=== PATIENT | female | born 1935 | race Caucasian/White ===

== ENCOUNTER 2018-06-14 17:45 | Inpatient (IN) | payer MEDICARE, OTHER ==
[~2018-06-14] VITALS: Ht 152.4 cm; Wt 75.3 kg
[~2018-06-14 17:45] MED LIST: ALPR0.5T6 PO; AMLO10TA2 PO; APIX2.5T PO; BILB80CA PO; CARV12.52 PO; CIDE300T PO; CRAN1TAB6 PO; DABI150C PO; FERR325T14 PO; HYDR25TA9 PO; LISI-334 PO; OMEG1CAP6 PO; UBID100C PO; XOPENEX1.25 MG/3 IH; [UNRECOGNIZED DRUG - CODE] MC
--- NOTE | 2018-06-14 17:50 | ED.ADGEN ---
Past History Past Medical History: Anxiety, CVA, Heart Disease, Stroke, Uterine Fibroids Past Surgical History: Cholecystectomy, Other Smoking: Non-smoker Alcohol Use: None Drug Use: None Adult General Chief Complaint Chief Complaint ". .. My abdomen been hurting... Feels like gas... I did have a stool..yesterday...but mainly only gas... I did get a suppository... but has not worked yet....".. " I had a colon exam 1 and 1/2 yrs ago and everything was fine..." [facility] HPI Patient is a 83 year old female who presents with complaints of generalized abdomen pain, distention, gas,. Mild nausea. Patient seen in clinic today and a rectal suppository was placed. Patient states she is constipated for her since she has not stooled normally the last 2 days. Patient states she normally has a stool every day. Patient has had multiple abdomen surgeries including cholecystectomy, pelvic surgeries( possible hysterectomy). Patient denies any intake bad food. Patient has not eaten full meal since yesterday. Has had a small meals today. No recent travel. No specific ill contacts. No history immunosuppression. No change in meds. No history of trauma. Patient normally follows with Dr. Davis. Review of Systems Review of Systems Constitutional: Denies fever or chills [] Eyes: Denies change in visual acuity, redness, or eye pain [] HENT: Denies nasal congestion or sore throat [] Respiratory: Denies cough or shortness of breath [] Cardiovascular: No additional information not addressed in [facility] [] GI: Complaints of abdominal pain, nausea, and constipation. Denies Vomiting, bloody stools or diarrhea [] : Denies dysuria or hematuria [] Musculoskeletal: Denies back pain or joint pain [] Integument: Denies rash or skin lesions [] Neurologic: Denies headache, focal weakness or sensory changes [] Endocrine: Denies polyuria or polydipsia [] All other systems were reviewed and found to be within normal limits, except as documented in this note. Family History Family History Noncontributory Current Medications Current Medications Current Medications Medications (Trade) Dose Ordered Sig/Cici Start Time Stop Time Status Last Admin Dose Admin Famotidine (Pepcid Vial) 20 mg 1X ONCE 06/14/18 18:15 06/14/18 18:16 DC 06/14/18 18:53 20 MG Info (Do NOT chart on this entry -- for MONITORING) 1 each PRN DAILY PRN 06/14/18 18:45 06/16/18 18:44 Iohexol (Omnipaque 240 Mg/ml) 30 ml 1X ONCE 06/14/18 18:30 06/14/18 18:31 DC 06/14/18 19:40 30 ML Iohexol (Omnipaque 300 Mg/ml) 75 ml 1X ONCE 06/14/18 18:30 06/14/18 18:31 DC 06/14/18 19:41 75 ML Ketorolac Tromethamine (Toradol) 15 mg 1X ONCE 06/14/18 20:45 06/14/18 20:46 DC 06/14/18 20:52 15 MG Lactated Ringer's 1,000 ml @ 1,000 mls/hr Q1H 06/14/18 17:58 06/14/18 18:57 DC 06/14/18 18:52 1,000 MLS/HR Levofloxacin (Levaquin) 500 mg 1X ONCE 06/14/18 20:30 06/14/18 20:31 UNV Levofloxacin/ Dextrose 100 ml @ 100 mls/hr 1X ONCE 06/14/18 20:45 06/14/18 21:44 DC 06/14/18 20:54 100 MLS/HR Magnesium Hydroxide (Milk Of Magnesia) 2,400 mg 1X ONCE 06/14/18 18:15 06/14/18 18:16 DC 06/14/18 18:55 2,400 MG Magnesium Citrate (Citroma) 296 ml 1X ONCE 06/14/18 20:45 06/14/18 20:46 DC 06/14/18 20:44 296 ML Ondansetron HCl (Zofran) 8 mg 1X ONCE 06/14/18 18:15 06/14/18 18:16 DC 06/14/18 18:48 8 MG See nursing for home meds Allergies Allergies Allergies Coded Allergies Type Severity Reaction Last Updated Verified Penicillins Allergy Intermediate Rash 12/11/14 Yes albuterol Allergy Intermediate Swelling 12/11/14 Yes ampicillin Allergy Intermediate Itching 12/11/14 Yes cetirizine Allergy Intermediate 12/11/14 Yes codeine Allergy Intermediate 12/11/14 Yes diphenhydramine HCl Allergy Intermediate Unknown 12/11/14 Yes erythromycin base Allergy Intermediate Rash 12/11/14 Yes tetracycline Allergy Intermediate Rash 12/11/14 Yes rivaroxaban Allergy Unknown 12/15/15 Yes acetaminophen Adverse Reaction Intermediate Nausea and Vomiting 12/10/14 Yes azithromycin Adverse Reaction Intermediate Diarrhea 12/10/14 Yes Physical Exam Physical Exam Constitutional: Mild to moderate distress, non-toxic appearance. [] HENT: Normocephalic, atraumatic, bilateral external ears normal, oropharynx moist, no oral exudates, nose normal. [] Eyes: PERRLA, EOMI, conjunctiva normal, no discharge. [] Neck: Normal range of motion, no tenderness, supple, no stridor. [] Cardiovascular:Tachycardia Heart rate, ill regular rhythm, no murmur, PMI to the left Lungs & Thorax: Bilateral breath sounds equal at apexes auscultation [] Abdomen: Bowel sounds decreased,, soft, generalized abdomen tenderness, no masses, no pulsatile masses. Multiple old surgery scars. Very Distended. Tympanic. Skin: Warm, dry, no erythema, no rash. Poor turgor Back: No tenderness, no CVA tenderness. [] Extremities: No tenderness, no cyanosis, no clubbing, ROM intact, no edema. [] Arthritic changes. Left lower leg weakness residual from old stroke. Neurologic: Alert and oriented X 3, no change in baseline motor and sensory function, no focal deficits noted. [] Psychologic: Affect anxious, judgement normal, mood normal. [] Current Patient Data Vital Signs Vital Signs Date Time Temp Pulse Resp B/P (MAP) Pulse Ox O2 Delivery O2 Flow Rate FiO2 06/14/18 20:05 80 16 168/90 (116) 97 Room Air 06/14/18 17:58 97.9 Lab Results Laboratory Tests Test 06/14/18 18:14 06/14/18 18:44 White Blood Count 9.7 x10^3/uL (4.0-11.0) Red Blood Count 4.99 x10^6/uL (3.50-5.40) Hemoglobin 15.6 g/dL (12.0-15.5) H Hematocrit 46.5 % (36.0-47.0) Mean Corpuscular Volume 93 fL (79-100) Mean Corpuscular Hemoglobin 31 pg (25-35) Mean Corpuscular Hemoglobin Concent 34 g/dL (31-37) Red Cell Distribution Width 13.7 % (11.5-14.5) Platelet Count 246 x10^3/uL (140-400) Neutrophils (%) (Auto) 79 % (31-73) H Lymphocytes (%) (Auto) 11 % (24-48) L Monocytes (%) (Auto) 8 % (0-9) Eosinophils (%) (Auto) 1 % (0-3) Basophils (%) (Auto) 1 % (0-3) Neutrophils # (Auto) 7.6 x10^3uL (1.8-7.7) Lymphocytes # (Auto) 1.1 x10^3/uL (1.0-4.8) Monocytes # (Auto) 0.7 x10^3/uL (0.0-1.1) Eosinophils # (Auto) 0.1 x10^3/uL (0.0-0.7) Basophils # (Auto) 0.1 x10^3/uL (0.0-0.2) Prothrombin Time 12.1 SEC (9.4-11.4) H Prothrombin Time INR 1.2 (0.9-1.1) H PTT 30 SEC (23-33) Sodium Level 139 mmol/L (136-145) Potassium Level 3.3 mmol/L (3.5-5.1) L Chloride Level 102 mmol/L (98-107) Carbon Dioxide Level 27 mmol/L (21-32) Anion Gap 10 (6-14) Blood Urea Nitrogen 14 mg/dL (7-20) Creatinine 0.8 mg/dL (0.6-1.0) Estimated GFR (Cockcroft-Gault) 68.2 Glucose Level 138 mg/dL (70-99) H Calcium Level 8.9 mg/dL (8.5-10.1) Total Bilirubin 0.8 mg/dL (0.2-1.0) Direct Bilirubin 0.3 mg/dL (0.0-0.2) H Aspartate Amino Transferase (AST) 19 U/L (15-37) Alanine Aminotransferase (ALT) 17 U/L (14-59) Alkaline Phosphatase 106 U/L (46-116) Creatine Kinase 35 U/L (26-192) Creatine Kinase MB (Mass) 0.9 ng/mL (0.0-3.6) Creatine Kinase MB Relative Index 2.6 % (0-4) Troponin I Quantitative < 0.017 ng/mL (0-0.055) Total Protein 7.3 g/dL (6.4-8.2) Albumin 3.3 g/dL (3.4-5.0) L Amylase Level 44 U/L (25-115) Lipase 76 U/L (73-393) Urine Collection Type Unknown Urine Color Yellow Urine Clarity Hazy Urine pH 5.5 Urine Specific [place] 1.025 Urine Protein 100 mg/dl (NEG-TRACE) Urine Glucose (UA) Neg mg/dL (NEG) Urine Ketones (Stick) 40 mg/dL (NEG) Urine Blood Trace (NEG) Urine Nitrite Neg (NEG) Urine Bilirubin Neg (NEG) Urine Urobilinogen Dipstick 1 mg/dL (0.2 mg/dL) Urine Leukocyte Esterase Neg (NEG) Urine RBC Occ /HPF (0-2) Urine WBC 5-10 /HPF (0-4) Urine Squamous Epithelial Cells Mod /LPF Urine Bacteria Few /HPF (0-FEW) Urine Hyaline Casts Mod /HPF Urine Mucus Marked /LPF EKG EKG My interpretation of EKG shows a ventricular rate 98. []Does have occasional atrial premature complex. Some nonspecific anterior septal changes. But no findings of acute STEMI with contralateral changes. There is some artifact noted. Appears as if Afib. Radiology/Procedures Radiology/Procedures My interpretation of abdomen film shows no marked acute cardiopulmonary changes. Cardiomegaly. Clips. Degenerative joint changes. There is no free air under diaphragm. Abdomen portion the film shows markedly dilated bowel with gas. Does have distal stool. Previous surgical clips. Degenerative joint changes of spine.[] CT abdomen shows dilated: With dilation of cecum up to 8.4 cm. There is some air -fluid levels. The small bowel was not significantly dilated. No obvious findings of appendicitis. Degenerative joint changes. See formal report when available. Course & Med Decision Making Course & Med Decision Making Pertinent Labs and Imaging studies reviewed. (See chart for details) Patient be admitted to for further eval and observation. Will start Levaquin. Possible early ileus. [] Final Impression Final Impression 1. Abdomen pain[] 2. Flank pain 3. Constipation 4. Weaknes 5. Hypokalemia 3.3 6. DM 7. Dehydration 8. UTI 9. Possible ileus 10. Leukocytosis 15.6 11. Afib. Dragon Disclaimer Dragon Disclaimer This electronic medical record was generated, in whole or in part, using a voice recognition dictation system. SHANE RAYMUNDO MD Jun 14, 2018 17:50
[2018-06-14] MEDS ORDERED: IV RINGERS SOLUTION,LACTATED 1,000 ML IV SCH (17:58)
[2018-06-14] MEDS ORDERED: ONDANSETRON PF 4 MG/2 ML VIAL. IV ONE (18:15)
[2018-06-14] MEDS ORDERED: FAMOTIDINE 20 MG/2 ML VIAL IVP ONE (18:15)
[2018-06-14] MEDS ORDERED: MAGNESIUM HYDROXIDE 2,400 MG/30 ML ORAL.SUSP. PO ONE (18:15)
[2018-06-14] MEDS ORDERED: IOHEXOL 240 MG/ML 50ML VIAL. PO ONE (18:30)
[2018-06-14] MEDS ORDERED: IOHEXOL 300 MG/ML 75 ML VIAL. IV ONE (18:30)
[2018-06-14 18:39] LABS: BASO # 0.1 x10^3/uL (0.0-0.2); BASO % 1 % (0-3); EOS # 0.1 x10^3/uL (0.0-0.7); EOS % 1 % (0-3); HEMATOCRIT 46.5 % (36.0-47.0); HEMOGLOBIN 15.6 g/dL (12.0-15.5); LYMPH # 1.1 x10^3/uL (1.0-4.8); LYMPH % 11 % (24-48); MEAN CORPUSCULAR HEMOGLOBIN 31 pg (25-35); MEAN CORPUSCULAR HGB CONC 34 g/dL (31-37); MEAN CORPUSCULAR VOLUME 93 fL (79-100); MONO # 0.7 x10^3/uL (0.0-1.1); MONO % 8 % (0-9); NEUT # 7.6 x10^3uL (1.8-7.7); NEUT % 79 % (31-73); PLATELET COUNT 246 x10^3/uL (140-400); RED BLOOD COUNT 4.99 x10^6/uL (3.50-5.40); RED CELL DISTRIBUTION WIDTH 13.7 % (11.5-14.5); WHITE BLOOD COUNT 9.7 x10^3/uL (4.0-11.0)
[2018-06-14] MEDS ORDERED: CONTRAST GIVEN MC PRN (18:45)
--- NOTE | 2018-06-14 19:07 | EKG ---
[address] [address] Test Date: 2018-06-14 Test Time: 19:01:43 Pat Name: WARREN HDEZ Department: Room: Gender: F [employer] Supervisor: : [id number] Requested By: SHANE RAYMUNDO Order Number: [id number] Reading MD: Measurements Intervals [place] Rate: 98 P: 0 KS: 210 QRS: 10 QRSD: 96 T: 40 QT: 362 QTc: 464 Interpretive Statements SINUS RHYTHM ATRIAL PREMATURE COMPLEX(ES) PROLONGED [place] INTERVAL R-S TRANSITION ZONE IN V LEADS DISPLACED TO THE LEFT QRS(T) CONTOUR ABNORMALITY CONSIDER ANTEROSEPTAL MYOCARDIAL DAMAGE ABNORMAL ECG RI6.01 Unconfirmed report No previous ECG available for comparison
[2018-06-14 19:19] LABS: BACTERIA,URINE FEW /HPF (0-FEW); BILIRUBIN,URINE NEG (NEG); CLARITY,URINE HAZY; COLOR,URINE YELLOW; GLUCOSE,URINE NEG (NEG); HYALINE CASTS, URINE MOD /HPF; NITRITE,URINE NEG (NEG); RBC,URINE OCC /HPF (0-2); SQUAMOUS EPITHELIAL CELL,UR MOD /LPF; UROBILINOGEN,URINE 1 mg/dL (0.2 mg/dL)
[2018-06-14 19:22] LABS: ALBUMIN 3.3 g/dL (3.4-5.0); CALCIUM 8.9 mg/dL (8.5-10.1); CREATININE 0.8 mg/dL (0.6-1.0); DIRECT BILIRUBIN 0.3 mg/dL (0.0-0.2); GFR 68.2; POTASSIUM 3.3 mmol/L (3.5-5.1); TOTAL BILIRUBIN 0.8 mg/dL (0.2-1.0); TOTAL PROTEIN 7.3 g/dL (6.4-8.2)
--- NOTE | 2018-06-14 20:17 | RAD ---
CT abdomen and pelvis with contrast History: Severe lower abdominal pain, constipation, loss of appetite> Technique: After the administration of intravenous contrast, CT imaging was performed of the abdomen and pelvis. No oral contrast was given as per request. Multiplanar images are reviewed. Exposure: One or more of the following individualized dose reduction techniques were utilized for this examination: 1. Automated exposure control 2. Adjustment of the mA and/or kV according to patient size 3. Use of iterative reconstruction technique. Contrast: 75 cc Omnipaque 300 Comparison: None Findings: Heart is enlarged. There is no pleural fluid. No focal abnormality is identified of the pancreas, liver, spleen. Gallbladder is absent. Both kidneys enhance without hydronephrosis. There is atherosclerotic calcification abdominal aorta. Incidental note is made of retroaortic left renal vein. There is no adrenal nodularity. Accurate evaluation of bowel is limited without oral contrast. There is some dilatation of the colon most notable of the cecum up to 8.4 cm in caliber, some air-fluid levels present in the colon. There is more focal internal density of the more normal caliber distal sigmoid colon. Appendix is not clearly identified if still present. Small bowel is not significantly dilated. There is no free air. There is no significant free fluid. There is multilevel lumbar facet hypertrophic change and degenerative disc disease. There is grade 1 anterior spondylolisthesis L4-5. Impression: 1. There is colonic dilatation most notable of the cecum, some relative transition of the caliber at the level of the sigmoid colon at which there is some internal density. Internal mass would be difficult to exclude by this exam although findings could be due to stool. Colonoscopy may be beneficial if this has not been performed. Electronically signed by: Blake Hdz MD (06/14/2018 8:14 PM) [facility]
[2018-06-14] MEDS ORDERED: levoFLOXacin 500 MG TABLET PO ONE (20:30)
[2018-06-14] MEDS ORDERED: LEVO500T59 PO (20:31)
[2018-06-14] MEDS ORDERED: KETOROLAC 15 MG/ML VIAL. IV ONE (20:45)
[2018-06-14] MEDS ORDERED: MAGNESIUM CITRATE 296 ML SOLUTION. PO ONE (20:45)
[2018-06-14] MEDS ORDERED: ONDANSETRON PF 4 MG/2 ML VIAL. IV PRN (22:00)
[2018-06-14] MEDS ORDERED: POTASSIUM CHLORIDE 20 MEQ/15 ML ORAL LIQUID. PO ONE (22:15)
[2018-06-14] MEDS ORDERED: SODIUM PHOSPHATES 19/7GM 133 ML ENEMA. PR ONE (22:15)
[2018-06-14 23:07] VITALS: BP 157/96
[2018-06-14] MEDS ORDERED: POTA20TA4 PO (23:52)
[2018-06-14] MEDS ORDERED: CARV25TA2 PO (23:52)
[2018-06-14] MEDS ORDERED: APIX5TAB3 PO (23:52)
[2018-06-14] MEDS ORDERED: AMLO2.5T PO (23:52)
[2018-06-15] MEDS ORDERED: KETOROLAC 15 MG/ML VIAL. IV PRN (00:30)
[2018-06-15] MEDS ORDERED: PROCHLORPERAZINE 10 MG/2 ML VIAL. IV PRN (00:30)
[2018-06-15 05:01] VITALS: BP 136/76
[2018-06-15 06:04] LABS: BASO # 0.1 x10^3/uL (0.0-0.2); BASO % 1 % (0-3); EOS % 0 % (0-3); HEMATOCRIT 43.3 % (36.0-47.0); HEMOGLOBIN 14.6 g/dL (12.0-15.5); LYMPH % 10 % (24-48); MEAN CORPUSCULAR HEMOGLOBIN 32 pg (25-35); MEAN CORPUSCULAR HGB CONC 34 g/dL (31-37); MEAN CORPUSCULAR VOLUME 93 fL (79-100); MONO % 9 % (0-9); NEUT # 8.5 x10^3uL (1.8-7.7); NEUT % 80 % (31-73); PLATELET COUNT 229 x10^3/uL (140-400); RED BLOOD COUNT 4.65 x10^6/uL (3.50-5.40); RED CELL DISTRIBUTION WIDTH 13.4 % (11.5-14.5); WHITE BLOOD COUNT 10.5 x10^3/uL (4.0-11.0)
[2018-06-15 06:14] LABS: CALCIUM 8.6 mg/dL (8.5-10.1); CREATININE 0.7 mg/dL (0.6-1.0); GFR 79.5
[2018-06-15 06:16] LABS: POTASSIUM 2.8 mmol/L (3.5-5.1)
[2018-06-15] MEDS ORDERED: POTASSIUM CL 40MEQ IN D5W 1,000 ML IV SCH (07:15)
[2018-06-15] MEDS ORDERED: IV RINGERS SOLUTION,LACTATED 1,000 ML IV SCH (09:00)
[2018-06-15] MEDS ORDERED: levoFLOXacin 250 MG TABLET PO SCH ×2 (09:00→20:00)
[2018-06-15 11:34] VITALS: BP 150/90
--- NOTE | 2018-06-15 13:06 | SSS ---
ADMIT DATE: 06/15/2018 HISTORY OF PRESENT ILLNESS: The patient is an 83-year-old female patient, who apparently came to the Emergency Room complaining of abdominal pain. Apparently, she has not had any bowel movement since last Thursday. She continued to have nausea and dry heaves. She did have small bowel movement this morning, but continued to have severe abdominal pain. CT scan of the abdomen and pelvis showed that there is colonic dilatation, most notable of the cecum with some relative transition of caliber at the level of the sigmoid colon at which there is some internal density and tenderness will be difficult to exclude by this exam, although the finding could be due to stool. Colonoscopy may be beneficial if this has not been done, given that she has multiple surgeries before and possible adhesion versus tumor. I decided to transfer her to [facility] to consult the surgical team as well as the assembly worker. PAST MEDICAL HISTORY: Significant for hypertension, atrial fibrillation. She also is known to have osteoarthritis as well as hyperlipidemia and right middle cerebral artery territory infarct with left side hemiplegia about 15 years ago. She mostly in a power chair, although she uses walker to transfer. PAST SURGICAL HISTORY: Significant for total abdominal hysterectomy, bilateral salpingo-oophorectomy, cholecystectomy, bilateral cataract extraction, colonoscopy, esophagogastroduodenoscopy. She has also had . ALLERGIES: She is allergic to PENICILLIN, ACETAMINOPHEN, ALBUTEROL, AMPICILLIN, AZITHROMYCIN, CETIRIZINE, CODEINE, and DIPHENHYDRAMINE. MEDICATIONS: She is currently on following medications: She is on Xopenex 1.25 mg twice a day, apixaban 5 mg twice a day, omega-3 fatty acid 1000 mg p.o. daily, carvedilol 25 mg twice a day, amlodipine besylate 2.5 mg daily, lisinopril 20 mg twice a day, alprazolam 0.5 mg at bedtime. She is on potassium chloride 20 mEq daily. She is Bilberry fruit extract 80 mg once a day, cider vinegar 300 mg p.o. daily, cranberry concentrate 3 tablets daily. She is on Coenzyme Q10 100 mg daily. She is on Avocado oil 1 mL daily. FAMILY HISTORY: She has 3 brothers and 5 sisters. Older brother of myocardial infarction and CVA and 4 sisters, all of them with complication of diabetes, coronary artery disease and cerebrovascular accident. She has 1 older sister that is alive at age of 90 and one younger brother at the age of 77 is still alive. Her mother at age of 84 because of pneumonia and CVA. Her father committed suicide when he was 52 years old. SOCIAL HISTORY: She is , lives with her son. One of her sons of diabetes and aneurysm. She never smoked, does not drink alcohol. She worked with for 25 years. REVIEW OF SYSTEMS: The patient has bilateral cataract extraction, but denied any glaucoma or macular degeneration. Denied any earache, tinnitus or sensorineural deafness. Denied any nosebleeds, stuffy nose or postnasal drip. Denied any sore throat, sore tongue, toothache, hoarseness of voice or difficulty swallowing. She has recurrent bouts of nausea, vomiting and dry hives. She has been having constipation and cramping abdominal pain. Denied any dysuria, frequency, hematuria. Denied any chest pain, shortness of breath, orthopnea, paroxysmal nocturnal dyspnea. Denied any cough, phlegm or hemoptysis. PHYSICAL EXAMINATION: GENERAL: When I examined her, she was resting, slightly propped up in bed, in no apparent respiratory distress. She was pale, but no jaundice, cyanosis, or thyromegaly. No jugular venous distension. No limb edema. VITAL SIGNS: Her heart rate was 89, blood pressure was 136/76, temperature was 98.2, respiratory rate was 22 and oxygen saturation was 94%. HEAD, EYES, EARS, NOSE AND THROAT: Showed normocephalic, atraumatic. NECK: Supple. HEART: Showed normal first and second heart sounds with no gallop, rub or murmur. CHEST: Clear to auscultation. No crepitation or rhonchi. ABDOMEN: Distended, soft. There is no tenderness. No guarding or rigidity. However, bowel sounds are sluggish. NEUROLOGIC: She is awake, alert, responding appropriately. All cranial nerves intact. EXTREMITIES: She moves her extremities without difficulty, although she has left-sided hemiplegia. She is able to use a walker, but she is mostly in a power chair. LABORATORY DATA: On admission showed a white cell count of 10,500, hemoglobin 14.6, hematocrit 43, MCV 93, and platelet count of 229,000. Her chemistry showed serum sodium 139, potassium 3.3, chloride 102, bicarbonate 27, anion gap of 10, BUN 14, creatinine 0.8, estimated GFR was 68 mL per minute. Her glucose was 138, calcium was 8.9. Total bilirubin, AST, ALT, alkaline phosphatase were normal. Total protein was 7.3, albumin 3.3. Amylase and lipase were normal. Her prothrombin time was 12.1, INR 1.2, APTT was 30. Urinalysis was essentially unremarkable. The urine was yellow, hazy with a pH of 5.5, specific gravity of 1.025. There is large amount of protein, negative for glucose, trace of ketones, trace of blood, negative for nitrite and leukocyte esterase. There was occasional rbc's, 5-10 wbc's, no bacteria. The CT scan of the abdomen and pelvis showed that heart is enlarged. There is no pleural effusion, no focal abnormality is identified. The pancreas, liver, spleen; the gallbladder is absent. Both kidneys enhance without hydronephrosis. There is atherosclerotic calcification of abdominal aorta. Incidental note is made of aortic left renal vein. There is no adrenal nodularity. Accurate evaluation of bowel is limited without oral contrast. There is some dilatation of the colon, most notable in the cecum up to 8.4 cm in caliber, some air fluid levels present in the colon. There is more focal internal density with more normal caliber distal sigmoid colon. Appendix is not clearly identifiable. Small bowel is not significantly dilated. There is no free air. There is no significant free fluid. There is multilevel lumbar facet hypertrophic changes and degenerative disk disease. There is grade 1 anterior spondylolisthesis of L4-L5. Given that the patient continues to have abdominal pain and marked dilatation of the cecum, possible transition of the caliber at the level of the sigmoid colon. I decided to transfer the patient to [facility] today to consult the surgical team as well as the assembly worker. The patient seems to be somewhat short of breath and had difficulty finishing her sentence. By the time we decided to transfer her serum sodium was 140, potassium 2.8, chloride 103, bicarbonate 29, anion gap of 8, BUN 13, creatinine 0.7, estimated GFR was 80 mL per minute. Her glucose 105, calcium was 8.5. We will continue to replenish her potassium. I will repeat her labs by the time she arrives to [facility] and keep her n.p.o. for the time being. KENTRELL SHAFFER MD DR: Kassie JOB#: [id number] / [id number]
[2018-06-15] MEDS ORDERED: LACTOBACILLUS RHAMNOSUS GG 1 CAPSULE. PO SCH (21:00)
--- NOTE | 2018-06-16 16:18 | RAD ---
INDICATION: Abdominal pain, nausea, vomiting and constipation. TECHNIQUE: Abdominal series with PA chest radiograph was obtained. Comparison chest radiograph is from December 15, 2015. FINDINGS: The lungs are clear. There is mild elevation of the right hemidiaphragm. Heart is enlarged. Pulmonary vasculature is mildly cephalized. There is no free air. Colon is dilated, transverse colon measures about 10 cm in diameter. There also appear to be a few mildly dilated small bowel loops. No obvious transition in caliber is apparent. There are clips in the right upper quadrant. There are calcified phleboliths. There are degenerative changes in the spine. IMPRESSION: Distention of small bowel and colon without obvious transition, ileus versus large bowel obstruction are the differential considerations. Recent CT noted a caliber change in the sigmoid colon, not appreciable on the current radiographs although given appearance on CT and given large bowel dilation on the current exam, colonoscopy to exclude neoplasm may be of benefit. Electronically signed by: Deonte Banks MD (06/15/2018 9:02 AM) [id number]
== END 2018-06-15 12:30 | disposition short-term general hospital (02) | DRG 394 ==
LOC: ER 17:45 → 1 SOUTH 21:00
PROVIDERS: ADMIT Internal Medicine; ATTEND Internal Medicine
DX: K59.39 Other megacolon (principal); G81.94 Hemiplegia, unspecified affecting left nondominant side; N39.0 Urinary tract infection, site not specified; E78.5 Hyperlipidemia, unspecified; I10 Essential (primary) hypertension; I48.91 Unspecified atrial fibrillation; K59.00 Constipation, unspecified; Z82.3 Family history of stroke; F41.9 Anxiety disorder, unspecified; M43.16 Spondylolisthesis, lumbar region; E87.6 Hypokalemia; E86.0 Dehydration; D72.829 Elevated white blood cell count, unspecified; M19.90 Unspecified osteoarthritis, unspecified site; Z82.49 Family history of ischemic heart disease and other diseases of the circulatory system; Z86.73 Personal history of transient ischemic attack (TIA), and cerebral infarction without residual deficits; Z83.3 Family history of diabetes mellitus; Z90.710 Acquired absence of both cervix and uterus; Z98.41 Cataract extraction status, right eye; Z98.42 Cataract extraction status, left eye; Z88.6 Allergy status to analgesic agent; Z88.1 Allergy status to other antibiotic agents; Z88.0 Allergy status to penicillin; Z88.2 Allergy status to sulfonamides; Z88.8 Allergy status to other drugs, medicaments and biological substances; Z90.722 Acquired absence of ovaries, bilateral
CPT/HCPCS: 36415; 74022; 74177; 80048; 80076; 81001; 82150; 82553; 83690; 84484; 85025; 85610; 85730; 87086; 87641; 93005; 96361; 96374; 96375; J0780; J1885; J1956; J2405; J7120; Q9966; Q9967; S0028; 99285-25

== ENCOUNTER 2018-06-24 14:50 | Inpatient (IN) | payer MEDICARE, OTHER ==
[~2018-06-24] VITALS: Ht 152.4 cm; Wt 65.5 kg
[~2018-06-24 14:50] MED LIST changes: +AMLO2.5T PO; +APIX5TAB3 PO; +CARV25TA2 PO; +LEVO500T59 PO; +POTA20TA4 PO
[2018-06-24 16:39] VITALS: BP 125/82
[2018-06-24] MEDS: CARVEDILOL 12.5 MG TABLET PO SCH (17:00)
[2018-06-24] MEDS ORDERED: TRAM50TA PO (17:07)
[2018-06-24 21:20] VITALS: BP 158/99
[2018-06-24] MEDS: LISINOPRIL 20 MG TABLET PO SCH (21:30)
[2018-06-24] MEDS: APIXABAN 5 MG TABLET. PO SCH (21:31)
[2018-06-24] MEDS: POTASSIUM CHLORIDE 20 MEQ TABLET.ER. PO SCH (21:31)
[2018-06-24] MEDS: ALPRAZolam 0.5 MG TABLET PO PRN (21:31)
[2018-06-25 06:29] VITALS: BP 143/68
[2018-06-25] MEDS: APIXABAN 5 MG TABLET. PO SCH ×2 (09:44→20:15)
[2018-06-25] MEDS: amLODIPine BESYLATE 10 MG TABLET PO SCH (09:44)
[2018-06-25] MEDS: OMEGA-3 FATTY ACIDS/FISH OIL 1,000 MG CAPSULE. PO SCH (09:45)
[2018-06-25] MEDS: POTASSIUM CHLORIDE 20 MEQ TABLET.ER. PO SCH ×3 (09:45→20:15)
[2018-06-25] MEDS: LISINOPRIL 20 MG TABLET PO SCH ×2 (09:45→20:15)
[2018-06-25] MEDS: CARVEDILOL 12.5 MG TABLET PO SCH ×2 (09:46→17:43)
--- NOTE | 2018-06-25 12:11 | HP ---
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 She is status post subtotal colectomy and end ileostomy and Meckel's diverticulectomy. Her postoperative ileus has resolved. She is now on a regular diet, tolerating it very well and it was felt that the patient would benefit from rehabilitation and therefore, she was admitted to swing bed at [facility] to continue with the physical and occupational therapy. PAST MEDICAL HISTORY: Significant for hypertension, atrial fibrillation. 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 She is mostly in a power chair, although she uses a walker to transfer. PAST SURGICAL HISTORY: Significant for total abdominal hysterectomy and bilateral salpingo-oophorectomy, cholecystectomy, bilateral cataract extraction, colonoscopy, esophagogastroduodenoscopy as well as . She underwent a subtotal colectomy with end ileostomy and Meckel's diverticulectomy only recently. ALLERGIES: She is allergic to PENICILLIN, ACETAMINOPHEN, ALBUTEROL, AMPICILLIN, AZITHROMYCIN, CETIRIZINE, CODEINE, AND DIPHENHYDRAMINE. MEDICATIONS: She is currently on following medications: She is on Xopenex 1.25 mg by inhaler twice a day, apixaban 5 mg twice a day, omega-3 fatty acids 1 capsule daily, carvedilol 12.5 mg twice a day, amlodipine 10 mg daily, lisinopril 20 mg twice a day, tramadol 50 mg every 6 hours, alprazolam 0.5 mg at bedtime and potassium chloride 20 mEq 3 times a day. FAMILY HISTORY: She has 3 brothers and 5 sisters, older brother of myocardial infarction and CVA in 4 sisters, all of them of complication of diabetes, coronary artery disease and cerebrovascular accident. She has 1 older sister that is alive at the age of 90 and one younger brother, at the age of 77. He is still alive. Her mother at age of 84 because of pneumonia and CVA. Her father committed suicide at age of 52. SOCIAL HISTORY: She is , lives with her son. One of her sons of diabetes and aneurysm. She never smoked, does not drink alcohol. REVIEW OF SYSTEMS: The patient has had bilateral cataract extraction, but denied any glaucoma or macular degeneration. Denied any earache, tinnitus or sensorineural deafness. Denied any nosebleeds, stuffy nose or postnasal drip. Denied any sore throat, sore tongue, toothache, hoarseness of voice or difficulty swallowing. She has denied any dysuria, frequency or hematuria. Denied any cough, phlegm. Denied any shortness of breath, orthopnea or paroxysmal nocturnal dyspnea. Denied any chills, rigors or fever. PHYSICAL EXAMINATION: GENERAL: When I examined her today, she was sitting comfortably in her chair in no apparent respiratory distress, slightly pale, but no jaundice, cyanosis, lymphadenopathy or thyromegaly. No jugular venous distension. No lower limb edema. VITAL SIGNS: Her heart rate was 86, blood pressure was 143/68, temperature was 97.7, respiratory rate was 18 and oxygen saturation was 96%. HEENT: Showed she is normocephalic, atraumatic. NECK: Supple. HEART: Showed normal first and second sounds. No gallop, rub or murmur. ABDOMEN: Distended, soft with a midline surgical incision, is healing nicely with angel still in place. The Brissa drain as well as the ELENA drain were both removed. She has an ileostomy in the left lower quadrant. There is no tenderness. No guarding or rigidity. No organomegaly. Hernial orifice intact. Bowel sounds normal. NEUROLOGIC: She is awake, alert, responding appropriately. Cranial nerves intact. She has left-sided hemiplegia. She is mostly in her power chair, although she managed to transfer. LABORATORY DATA: Her lab work is still pending at the time of this dictation. IMPRESSION: In summary, this is an 83-year-old female patient who was transferred to [facility] with: 1. 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 She is status post subtotal colectomy with end colostomy and Meckel's diverticulectomy. 2. Her postoperative ileus has resolved. She is now on a regular diet and tolerating it well. 3. Acute kidney injury, resolved. Her BUN and creatinine are back to normal. 4. Hypokalemia, resolved. Her most recent serum potassium was 4.4. 5. Hypomagnesemia, resolved. 6. Severe protein calorie malnutrition. 7. An episode of atrial fibrillation with a ventricular response that has responded very well. 8. 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 PLAN: To continue with the physical and occupational therapy and nutritional support. Continue with the metoprolol to control the heart rate and apixaban for stroke prevention. KENTRELL SHAFFER MD DR: RAFFI/tash JOB#: [id number] / [id number]
[2018-06-25] MEDS: ONDANSETRON ODT 4 MG TAB.RAPDIS PO PRN (12:27)
--- NOTE | 2018-06-25 14:41 | RAD ---
KUB, 06/25/2018: HISTORY: Abdominal pain Gas is present in large and small bowel in a nonspecific pattern. There is no evidence organomegaly. Surgical skin clips overlie the abdomen and pelvis near the midline. Additional surgical clips overlie the right upper quadrant. Moderate multilevel degenerative change is present in the spine. IMPRESSION: No acute abdominal abnormality is detected. Electronically signed by: Hadley Arnett MD (06/25/2018 2:37 PM) [facility]
[2018-06-25 18:45] VITALS: BP_SYST 126; BP_SYST 95; BP_DIAS 52; BP_DIAS 66
[2018-06-25] MEDS: traMADol 50 MG TABLET PO PRN (20:15)
[2018-06-25] MEDS: ALPRAZolam 0.5 MG TABLET PO PRN (20:15)
[2018-06-26 06:06] VITALS: BP 126/63
[2018-06-26 07:24] LABS: RED BLOOD COUNT 3.83 x10^6/uL (3.50-5.40); RED CELL DISTRIBUTION WIDTH 13.5 % (11.5-14.5); WHITE BLOOD COUNT 7.9 x10^3/uL (4.0-11.0)
[2018-06-26 07:41] LABS: ALBUMIN 2.1 g/dL (3.4-5.0); ALBUMIN/GLOBULIN RATIO 0.6 (1.0-1.7); CALCIUM 8.4 mg/dL (8.5-10.1); CREATININE 0.9 mg/dL (0.6-1.0); GFR 59.5; POTASSIUM 4.6 mmol/L (3.5-5.1); TOTAL BILIRUBIN 0.4 mg/dL (0.2-1.0); TOTAL PROTEIN 5.4 g/dL (6.4-8.2)
[2018-06-26] MEDS: OMEGA-3 FATTY ACIDS/FISH OIL 1,000 MG CAPSULE. PO SCH (08:15)
[2018-06-26] MEDS: amLODIPine BESYLATE 10 MG TABLET PO SCH (08:15)
[2018-06-26] MEDS: LISINOPRIL 20 MG TABLET PO SCH ×2 (08:15→21:00)
[2018-06-26] MEDS: CARVEDILOL 12.5 MG TABLET PO SCH ×2 (08:16→17:20)
[2018-06-26] MEDS: POTASSIUM CHLORIDE 20 MEQ TABLET.ER. PO SCH ×3 (08:16→21:00)
[2018-06-26] MEDS: APIXABAN 5 MG TABLET. PO SCH ×2 (08:16→21:00)
[2018-06-26 18:18] VITALS: BP 114/72
[2018-06-27 06:27] VITALS: BP 133/70
[2018-06-27] MEDS: OMEGA-3 FATTY ACIDS/FISH OIL 1,000 MG CAPSULE. PO SCH (10:48)
[2018-06-27] MEDS: amLODIPine BESYLATE 10 MG TABLET PO SCH (10:49)
[2018-06-27] MEDS: APIXABAN 5 MG TABLET. PO SCH ×2 (10:49→21:25)
[2018-06-27] MEDS: POTASSIUM CHLORIDE 20 MEQ TABLET.ER. PO SCH ×3 (10:49→21:25)
[2018-06-27] MEDS: CARVEDILOL 12.5 MG TABLET PO SCH ×2 (10:49→17:56)
[2018-06-27] MEDS: LISINOPRIL 20 MG TABLET PO SCH ×2 (10:50→21:25)
[2018-06-27] MEDS: traMADol 50 MG TABLET PO PRN (17:43)
[2018-06-27 18:20] VITALS: BP 103/65
--- NOTE | 2018-06-27 20:40 | PDOC ---
Exam Note: Scotty Note: Please also refer to the separate dictated note~for this date of service dictated separately.~Patient seen individually. Discussed the patient with Nursing staff reviewed the chart.~Reviewed interim history and current functioning. Reviewed vital signs,~Labs/ Radiology~and current medications noted below. Continue current treatment with the changes noted in the dictated addendum note Assessment: Vital Signs: Vital Signs Date Time Temp Pulse Resp B/P (MAP) Pulse Ox O2 Delivery O2 Flow Rate FiO2 06/27/18 19:55 Room Air 06/27/18 19:10 18 97 06/27/18 18:20 97.9 74 103/65 (78) I&O Intake and Output 06/27/18 07:00 Intake Total 900 ml Output Total 1675 ml Balance -775 ml Intake Oral 900 ml Output Stool Total 1675 ml # Voids 5 Current Medications: Meds: Current Medications Lisinopril (Prinivil) 20 mg BID PO Last administered on 06/27/18 10:50; Start 06/24/18 at 21:00 Fish Oil (Fish Oil) 1,000 mg DAILY PO Last administered on 06/27/18 10:48; Start 06/25/18 at 09:00 Potassium Chloride (Klor-Con) 20 meq TID PO Last administered on 06/27/18 14: 11; Start 06/24/18 at 21:00 Tramadol HCl (Ultram) 50 mg PRN Q6HRS PRN PO PAIN Last administered on 17:43; Start 06/24/18 at 17:15 Alprazolam (Xanax) 0.5 mg QHS PRN PO ANXIETY Last administered on 06/25/18 20: 15; Start 06/24/18 at 21:00 Amlodipine Besylate (Norvasc) 10 mg DAILY PO Last administered on 06/27/18 10: 49; Start 06/25/18 at 09:00 Apixaban (Eliquis) 5 mg BID PO Last administered on 06/27/18 10:49; Start 06/24 at 21:00 Carvedilol (Coreg) 12.5 mg BIDWMEALS PO Last administered on 06/27/18 17:56; Start 06/24/18 at 17:00 Ondansetron HCl (Zofran Odt) 4 mg PRN Q4HRS PRN PO NAUSEA/VOMITING Last administered on 06/25/18at 12:27; Start 06/25/18 at 12:15 Active Scripts Active Reported Tramadol Hcl (Tramadol HCl) 50 Mg Tablet 50 Mg PO PRN Q6HRS PRN Amlodipine Besylate 2.5 Mg Tablet 10 Mg PO DAILY Klor-Con M20 (Potassium Chloride) 20 Meq Tab.er.prt 1 Tab PO TID Eliquis (Apixaban) 5 Mg Tablet 5 Mg PO BID Carvedilol 25 Mg Tablet 12.5 Mg PO BIDWMEALS Xopenex (Levalbuterol Hcl) 1.25 Mg/3 Ml Vial.neb 1.25 Mg IH BID for shortness of breath last dose: next dose: Fish Oil 1,000 Mg Capsule ([place]-3 Fatty Acids/Fish Oil) 1 Each Capsule 1 Each PO DAILY supplement last dose: 12/11 @ 8:16 AM next dose: 12/12 AM Alprazolam 0.5 Mg Tablet 0.5 Mg PO HS PRN for anxiety Lisinopril 20 Mg Tablet 20 Mg PO BID for high blood pressure last dose: 12/11 @ 8:16 AM next dose: 12/11 PM I have reviewed the current psychotropics carefully including drug interactions. Risk benefit ratio favors no change other than as noted in my dictated progress note. Diagnosis: Problems: (1) Mild cognitive disorder (2) Major depressive disorder, recurrent episode (3) Anxiety state COLTON NAJERA MD Jun 27, 2018 20:40
[2018-06-28 06:17] VITALS: BP 101/54
[2018-06-28] MEDS: CARVEDILOL 12.5 MG TABLET PO SCH ×2 (08:00→17:00)
[2018-06-28] MEDS: POTASSIUM CHLORIDE 20 MEQ TABLET.ER. PO SCH ×3 (08:36→21:32)
[2018-06-28] MEDS: APIXABAN 5 MG TABLET. PO SCH ×2 (08:37→21:33)
[2018-06-28] MEDS: OMEGA-3 FATTY ACIDS/FISH OIL 1,000 MG CAPSULE. PO SCH (08:37)
[2018-06-28] MEDS: LISINOPRIL 20 MG TABLET PO SCH ×2 (09:00→21:33)
[2018-06-28] MEDS: amLODIPine BESYLATE 10 MG TABLET PO SCH (09:00)
[2018-06-28 11:36] VITALS: BP 85/55
[2018-06-28] MEDS: ONDANSETRON ODT 4 MG TAB.RAPDIS PO PRN (12:54)
[2018-06-28 17:07] VITALS: BP 100/69
--- NOTE | 2018-06-28 17:56 | PDOC ---
Exam Note: Scotty Note: Please also refer to the separate dictated note~for this date of service dictated separately.~Patient seen individually. Discussed the patient with Nursing staff reviewed the chart.~Reviewed interim history and current functioning. Reviewed vital signs,~Labs/ Radiology~and current medications noted below. Continue current treatment with the changes noted in the dictated addendum note Assessment: Vital Signs: Vital Signs Date Time Temp Pulse Resp B/P (MAP) Pulse Ox O2 Delivery O2 Flow Rate FiO2 06/28/18 11:36 97.4 73 16 85/55 (65) 97 Room Air I&O Intake and Output 06/28/18 06:59 Intake Total 120 ml Output Total 675 ml Balance -555 ml Intake Oral 120 ml Output Stool Total 675 ml # Voids 5 Current Medications: Meds: Current Medications Lisinopril (Prinivil) 20 mg BID PO Last administered on 06/27/18 21:25; Start 06/24/18 at 21:00 Fish Oil (Fish Oil) 1,000 mg DAILY PO Last administered on 06/28/18 08:37; Start 06/25/18 at 09:00 Potassium Chloride (Klor-Con) 20 meq TID PO Last administered on 06/28/18 08: 36; Start 06/24/18 at 21:00 Tramadol HCl (Ultram) 50 mg PRN Q6HRS PRN PO PAIN Last administered on 17:43; Start 06/24/18 at 17:15 Alprazolam (Xanax) 0.5 mg QHS PRN PO ANXIETY Last administered on 06/25/18 20: 15; Start 06/24/18 at 21:00 Amlodipine Besylate (Norvasc) 10 mg DAILY PO Last administered on 06/27/18 10: 49; Start 06/25/18 at 09:00 Apixaban (Eliquis) 5 mg BID PO Last administered on 06/28/18 08:37; Start 06/24 at 21:00 Carvedilol (Coreg) 12.5 mg BIDWMEALS PO Last administered on 06/27/18 17:56; Start 06/24/18 at 17:00 Ondansetron HCl (Zofran Odt) 4 mg PRN Q4HRS PRN PO NAUSEA/VOMITING Last administered on 8/13/18at 12:54; Start 06/25/18 at 12:15 Active Scripts Active Reported Tramadol Hcl (Tramadol HCl) 50 Mg Tablet 50 Mg PO PRN Q6HRS PRN Amlodipine Besylate 2.5 Mg Tablet 10 Mg PO DAILY Klor-Con M20 (Potassium Chloride) 20 Meq Tab.er.prt 1 Tab PO TID Eliquis (Apixaban) 5 Mg Tablet 5 Mg PO BID Carvedilol 25 Mg Tablet 12.5 Mg PO BIDWMEALS Xopenex (Levalbuterol Hcl) 1.25 Mg/3 Ml Vial.neb 1.25 Mg IH BID for shortness of breath last dose: next dose: Fish Oil 1,000 Mg Capsule ([place]-3 Fatty Acids/Fish Oil) 1 Each Capsule 1 Each PO DAILY supplement last dose: 12/11 @ 8:16 AM next dose: 12/12 AM Alprazolam 0.5 Mg Tablet 0.5 Mg PO HS PRN for anxiety Lisinopril 20 Mg Tablet 20 Mg PO BID for high blood pressure last dose: 12/11 @ 8:16 AM next dose: 12/11 PM I have reviewed the current psychotropics carefully including drug interactions. Risk benefit ratio favors no change other than as noted in my dictated progress note. Diagnosis: Problems: (1) Major depressive disorder, recurrent episode (2) Mild cognitive disorder (3) Anxiety state COLTON NAJERA MD Jun 28, 2018 17:56
[2018-06-28 20:02] VITALS: BP 113/61
--- NOTE | 2018-06-28 22:07 | CONS ---
DATE OF CONSULTATION: 06/27/2018 PSYCHIATRIC CONSULTATION This is late entry, 06/27, covers elements not covered in my initial note. SUBJECTIVE: I met with the patient evening of 06/27. IDENTIFYING DATA: The patient is an 83-year-old female seen in bed 127, skilled unit, referred by Dr. Anaya status post ileostomy surgery with increased confusion and depression. I have been asked to consult, make recommendations for her mood disorder. The patient seen individually, discussed with nursing staff, reviewed the chart. CHIEF COMPLAINT: "Yes, I have been depressed. Thursday is my 's birthday. We were for 64 years. He 3 years ago." HISTORY OF PRESENT ILLNESS: The patient relates multiple medical problems recently, worsening her mood symptoms. 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 She is status post subtotal colectomy and ileostomy and Meckel's diverticula diverting colectomy. Her postoperative ileus had resolved. She is now on a regular diet and it was felt the patient needed skilled care, admitted to the swing unit at [place]. She admits to being depressed, but cognitively is reasonably intact. No clear suicidal or homicidal ideation. She has had some sleep changes and appetite changes, the latter probably consequent to multiple medical problems. No clear history of bipolar disorder. No active suicidal or homicidal ideation. PAST PSYCHIATRIC HISTORY: Positive for depression. MEDICAL HISTORY: Hypertension, atrial fibrillation, osteoarthritis, hyperlipidemia, right middle cerebral artery infarct, left-sided hemiparesis 15 years ago. She is mostly in a power chair, uses a walker to transfer. PAST SURGICAL HISTORY: Total abdominal hysterectomy, bilateral salpingo-oophorectomy, cholecystectomy, bilateral cataract extraction, colonoscopy, EGD, . She underwent the above surgery at [place] recently. ALLERGIES: PENICILLIN, TYLENOL, ALBUTEROL, AMPICILLIN, AZITHROMYCIN, CETIRIZINE, CODEINE, DIPHENHYDRAMINE. CURRENT PSYCHOTROPICS: Xanax 0.5 mg at bedtime. FAMILY HISTORY: Positive for CVA, myocardial infarction, diabetes mellitus, coronary artery disease. She has 1 older sister alive at age 91, brother at age 77. Mother of 84 from pneumonia, CVA. Father committed suicide at age 52. SOCIAL HISTORY: The patient is , lives with the son. One of her sons of diabetes and aneurysm. No alcohol or drug abuse history. MENTAL STATUS EXAMINATION: The patient was seen individually in her room, evening of 06/27. She is well oriented, was aware of the date and where she was. 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 Able to do two steps and serial sevens, able to spell world forward and for the world backward, 1 error. No suicidal or homicidal ideation. Mood is dysphoric, anxious. Affect is mood congruent. IMPRESSION: Major depressive disorder, recurrent; adjustment disorder with depressed mood and anxiety; cognitive disorder, unspecified. Rest as above. PLAN: From a psychiatric standpoint, the patient will probably benefit from starting Prozac 5 mg a day, continuing Xanax at current dosage. Reviewed this with the patient. Dr. Anaya, thank you for the opportunity to participate in your patient's care. We will follow with you. MAN Kamran NAJERA MD DR: DAVID/tash JOB#: [id number] / [id number]
--- NOTE | 2018-06-28 22:50 | PN ---
DATE: 06/28/2018 PSYCHIATRIC PROGRESS NOTE This note covers elements not covered in my initial note. SUBJECTIVE: I met with the patient in the evening of 06/28. The patient complains of nausea. Nursing staff is aware of this, she has received Zofran for it. She still admits to being somewhat depressed. No suicidal or homicidal ideation. REVIEW OF SYSTEMS: Ambulation impaired. No CV system symptoms on review. MENTAL STATUS EXAM: Reasonably oriented. Speech is coherent, has some latency. Abstraction fair, computation impaired, language function intact. Mood and affect somewhat dysphoric. IMPRESSION: Unchanged from initial note. PLAN: The patient has been started on Prozac 5 mg a day. Rest no change from initial note. MAN Kamran NAJERA MD DR: DAVID/tash JOB#: [id number] / [id number]
[2018-06-29 06:03] VITALS: BP 119/64
[2018-06-29] MEDS: APIXABAN 5 MG TABLET. PO SCH (07:36)
[2018-06-29] MEDS: OMEGA-3 FATTY ACIDS/FISH OIL 1,000 MG CAPSULE. PO SCH (07:36)
[2018-06-29] MEDS: CARVEDILOL 12.5 MG TABLET PO SCH ×2 (07:37→08:00)
[2018-06-29] MEDS: POTASSIUM CHLORIDE 20 MEQ TABLET.ER. PO SCH ×2 (07:40→14:00)
[2018-06-29] MEDS: ONDANSETRON ODT 4 MG TAB.RAPDIS PO PRN (08:09)
[2018-06-29] MEDS: LISINOPRIL 20 MG TABLET PO SCH (09:00)
[2018-06-29] MEDS: amLODIPine BESYLATE 10 MG TABLET PO SCH (09:00)
--- NOTE | 2018-06-29 14:07 | PDOC3 ---
Discharge Summary Brief Hospital Course Allergies Allergies Coded Allergies Type Severity Reaction Last Updated Verified Penicillins Allergy Intermediate Rash 12/11/14 Yes albuterol Allergy Intermediate Swelling 12/11/14 Yes ampicillin Allergy Intermediate Itching 12/11/14 Yes cetirizine Allergy Intermediate 12/11/14 Yes codeine Allergy Intermediate 12/11/14 Yes diphenhydramine HCl Allergy Intermediate Unknown 12/11/14 Yes erythromycin base Allergy Intermediate Rash 12/11/14 Yes tetracycline Allergy Intermediate Rash 12/11/14 Yes I S O L A T I O N *CONTACT* Allergy Unknown 06/15/18 Yes rivaroxaban Allergy Unknown 12/15/15 Yes acetaminophen Adverse Reaction Intermediate Nausea and Vomiting 12/10/14 Yes azithromycin Adverse Reaction Intermediate Diarrhea 12/10/14 Yes Vital Signs Vital Signs Date Time Temp Pulse Resp B/P (MAP) Pulse Ox O2 Delivery O2 Flow Rate FiO2 06/29/18 08:18 Room Air 06/29/18 08:00 50 06/29/18 06:03 97.9 16 119/64 (82) 92 Brief Hospital Course Ms. Macdonald is a 83 old [sex] who presented with [ ] Discharge Information Dischare Medications Current Medications Lisinopril (Prinivil) 20 mg BID PO Last administered on 06/28/18 21:33; Start 06/24/18 at 21:00 Fish Oil (Fish Oil) 1,000 mg DAILY PO Last administered on 06/29/18 07:36; Start 06/25/18 at 09:00 Potassium Chloride (Klor-Con) 20 meq TID PO Last administered on 06/29/18 07: 40; Start 06/24/18 at 21:00 Tramadol HCl (Ultram) 50 mg PRN Q6HRS PRN PO PAIN Last administered on 17:43; Start 06/24/18 at 17:15 Alprazolam (Xanax) 0.5 mg QHS PRN PO ANXIETY Last administered on 06/25/18 20: 15; Start 06/24/18 at 21:00 Amlodipine Besylate (Norvasc) 10 mg DAILY PO Last administered on 06/27/18 10: 49; Start 06/25/18 at 09:00 Apixaban (Eliquis) 5 mg BID PO Last administered on 06/29/18 07:36; Start 06/24 at 21:00 Carvedilol (Coreg) 12.5 mg BIDWMEALS PO Last administered on 06/27/18at 17:56; Start 06/24/18 at 17:00 Ondansetron HCl (Zofran Odt) 4 mg PRN Q4HRS PRN PO NAUSEA/VOMITING Last administered on 06/29/18at 08:09; Start 06/25/18 at 12:15 Fluoxetine HCl (PROzac) 5 mg DAILY PO ; Start 06/29/18 at 09:00 Active Scripts Active Reported Tramadol Hcl (Tramadol HCl) 50 Mg Tablet 50 Mg PO PRN Q6HRS PRN Amlodipine Besylate 2.5 Mg Tablet 10 Mg PO DAILY Klor-Con M20 (Potassium Chloride) 20 Meq Tab.er.prt 1 Tab PO TID Eliquis (Apixaban) 5 Mg Tablet 5 Mg PO BID Carvedilol 25 Mg Tablet 12.5 Mg PO BIDWMEALS Xopenex (Levalbuterol Hcl) 1.25 Mg/3 Ml Vial.neb 1.25 Mg IH BID for shortness of breath last dose: next dose: Fish Oil 1,000 Mg Capsule ([place]-3 Fatty Acids/Fish Oil) 1 Each Capsule 1 Each PO DAILY supplement last dose: 12/11 @ 8:16 AM next dose: 12/12 AM Alprazolam 0.5 Mg Tablet 0.5 Mg PO HS PRN for anxiety Lisinopril 20 Mg Tablet 20 Mg PO BID for high blood pressure last dose: 12/11 @ 8:16 AM next dose: 12/11 PM RIDGE ISSA DO Jun 29, 2018 14:07
[2018-06-29 14:46] VITALS: BP 130/75
== END 2018-06-29 15:51 | disposition home health service (06) | DRG 682 ==
LOC: LND 16:32
PROVIDERS: ADMIT Internal Medicine; ATTEND Internal Medicine
DX: N17.9 Acute kidney failure, unspecified (principal); E43 Unspecified severe protein-calorie malnutrition; G81.94 Hemiplegia, unspecified affecting left nondominant side; E78.5 Hyperlipidemia, unspecified; E83.42 Hypomagnesemia; E87.6 Hypokalemia; F09 Unspecified mental disorder due to known physiological condition; F41.1 Generalized anxiety disorder; F43.23 Adjustment disorder with mixed anxiety and depressed mood; I48.91 Unspecified atrial fibrillation; I10 Essential (primary) hypertension; Q43.0 Meckel's diverticulum (displaced) (hypertrophic); Z79.01 Long term (current) use of anticoagulants; Z79.899 Other long term (current) drug therapy; Z82.3 Family history of stroke; Z82.49 Family history of ischemic heart disease and other diseases of the circulatory system; Z83.3 Family history of diabetes mellitus; Z86.73 Personal history of transient ischemic attack (TIA), and cerebral infarction without residual deficits; Z90.710 Acquired absence of both cervix and uterus; Z93.3 Colostomy status; Z98.41 Cataract extraction status, right eye; Z98.42 Cataract extraction status, left eye; Z90.49 Acquired absence of other specified parts of digestive tract; F32.9 Major depressive disorder, single episode, unspecified; M19.90 Unspecified osteoarthritis, unspecified site; Z90.722 Acquired absence of ovaries, bilateral; Z88.6 Allergy status to analgesic agent; Z88.1 Allergy status to other antibiotic agents; Z88.0 Allergy status to penicillin; Z88.8 Allergy status to other drugs, medicaments and biological substances; Z68.28 Body mass index [BMI] 28.0-28.9, adult
CPT/HCPCS: 36415; 74018; 80053; 85027; 87641; Q0162; 97110; 97530; 97535

== ENCOUNTER 2018-07-01 21:25 | Inpatient (IN) | payer MEDICARE, OTHER ==
[~2018-07-01] VITALS: Ht 152.4 cm; Wt 65.8 kg
[~2018-07-01 21:25] MED LIST changes: +TRAM50TA PO
--- NOTE | 2018-07-01 21:34 | ED.ADGEN ---
Past History Past Medical History: Anxiety, CVA, Heart Disease, Stroke, Uterine Fibroids Past Surgical History: Cholecystectomy, Other Smoking: Non-smoker Alcohol Use: None Drug Use: None Adult General Chief Complaint Chief Complaint ".. I was confused... maybe not talking right.. my afib.. was wrong...".. I was so weak..." HPI HPI Patient is a 83 year old female who presents with above hx and complaints of mental status change, rapid changes in Afib rates from 20 to 230 ventricular responses. Pt. reportedly more confused and weak. Pt. has know afib. Recently discharge for [place] on Thu. of this week. Pt. reportedly compliant with meds. No travel or ill contacts. No hx of trauma. Noted at home very irregular heart rates. Review of Systems Review of Systems Constitutional: Denies fever or chills [] Eyes: Denies change in visual acuity, redness, or eye pain [] HENT: Denies nasal congestion or sore throat [] Respiratory: Denies cough Complaints of shortness of breath with the fast heart rates Cardiovascular: No additional information not addressed in HPI [] GI: Denies abdominal pain, nausea, vomiting, bloody stools or diarrhea [] : Denies dysuria or hematuria [] Musculoskeletal: Denies back pain or joint pain []Complaints of generalized weakness. Integument: Denies rash or skin lesions [] Neurologic: Denies headache, focal weakness or sensory changes []Some confusion with irregular heart rates. Endocrine: Denies polyuria or polydipsia [] All other systems were reviewed and found to be within normal limits, except as documented in this note. Family History Family History Non-contributory Current Medications Current Medications Current Medications Medications (Trade) Dose Ordered Sig/Cici Start Time Stop Time Status Last Admin Dose Admin Ciprofloxacin (Cipro) 500 mg 1X ONCE 07/01/18 23:45 07/01/18 23:46 DC 07/02/18 00:26 500 MG Diltiazem HCl (Cardizem) 10 mg PRN 1X PRN 07/01/18 23:15 Furosemide (Lasix) 20 mg 1X ONCE 07/01/18 23:45 07/01/18 23:46 DC 07/02/18 00:26 20 MG Magnesium Sulfate 50 ml @ 25 mls/hr 1X ONCE 07/01/18 23:45 07/02/18 01:44 07/02/18 00:26 25 MLS/HR Ondansetron HCl (Zofran) 4 mg PRN Q4HRS PRN 07/01/18 23:15 07/02/18 23:14 Allergies Allergies Allergies Coded Allergies Type Severity Reaction Last Updated Verified Penicillins Allergy Intermediate Rash 12/11/14 Yes albuterol Allergy Intermediate Swelling 12/11/14 Yes ampicillin Allergy Intermediate Itching 12/11/14 Yes cetirizine Allergy Intermediate 12/11/14 Yes codeine Allergy Intermediate 12/11/14 Yes diphenhydramine HCl Allergy Intermediate Unknown 12/11/14 Yes erythromycin base Allergy Intermediate Rash 12/11/14 Yes tetracycline Allergy Intermediate Rash 12/11/14 Yes I S O L A T I O N *CONTACT* Allergy Unknown 06/15/18 Yes rivaroxaban Allergy Unknown 12/15/15 Yes acetaminophen Adverse Reaction Intermediate Nausea and Vomiting 12/10/14 Yes azithromycin Adverse Reaction Intermediate Diarrhea 12/10/14 Yes Physical Exam Physical Exam Constitutional: no acute distress, non-toxic appearance. [] HENT: Normocephalic, atraumatic, bilateral external ears normal, oropharynx moist, no oral exudates, nose normal. [] Eyes: PERRLA, EOMI, conjunctiva normal, no discharge. [] Neck: Normal range of motion, no tenderness, supple, no stridor. [] Cardiovascular: PMI to Lt. , irregular Heart rate and rhythm, no murmur [] Lungs & Thorax: Bilateral breath sounds basilar crackles on auscultation [] Abdomen: Bowel sounds normal, soft, no tenderness, no masses, no pulsatile masses. [] Skin: Warm, dry, no erythema, no rash.Poor turgor. Back: No tenderness, no CVA tenderness. [] Extremities: No tenderness, no cyanosis, no clubbing, ROM intact, no edema. [] Arthritic changes. No cording noted. Neurologic: Alert and oriented X 3, no current focal or marked changes in sensory or movement from baseline per pt. and family. Generalized weakness. Psychologic: Affect anxious, depressed mood Current Patient Data Vital Signs Vital Signs Date Time Temp Pulse Resp B/P (MAP) Pulse Ox O2 Delivery O2 Flow Rate FiO2 07/01/18 21:30 98.1 94 20 97 Room Air Lab Results Laboratory Tests Test 07/01/18 21:37 07/01/18 22:09 White Blood Count 10.9 x10^3/uL (4.0-11.0) Red Blood Count 4.54 x10^6/uL (3.50-5.40) Hemoglobin 14.1 g/dL (12.0-15.5) Hematocrit 42.0 % (36.0-47.0) Mean Corpuscular Volume 93 fL (79-100) Mean Corpuscular Hemoglobin 31 pg (25-35) Mean Corpuscular Hemoglobin Concent 34 g/dL (31-37) Red Cell Distribution Width 13.5 % (11.5-14.5) Platelet Count 488 x10^3/uL (140-400) H Neutrophils (%) (Auto) 67 % (31-73) Lymphocytes (%) (Auto) 17 % (24-48) L Monocytes (%) (Auto) 13 % (0-9) H Eosinophils (%) (Auto) 3 % (0-3) Basophils (%) (Auto) 0 % (0-3) Neutrophils # (Auto) 7.3 x10^3uL (1.8-7.7) Lymphocytes # (Auto) 1.8 x10^3/uL (1.0-4.8) Monocytes # (Auto) 1.4 x10^3/uL (0.0-1.1) H Eosinophils # (Auto) 0.3 x10^3/uL (0.0-0.7) Basophils # (Auto) 0.0 x10^3/uL (0.0-0.2) Prothrombin Time 11.1 SEC (9.4-11.4) Prothrombin Time INR 1.1 (0.9-1.1) PTT 24 SEC (23-33) Sodium Level 133 mmol/L (136-145) L Potassium Level 4.9 mmol/L (3.5-5.1) Chloride Level 97 mmol/L (98-107) L Carbon Dioxide Level 26 mmol/L (21-32) Anion Gap 10 (6-14) Blood Urea Nitrogen 33 mg/dL (7-20) H Creatinine 2.5 mg/dL (0.6-1.0) H Estimated GFR (Cockcroft-Gault) 18.3 Glucose Level 115 mg/dL (70-99) H Calcium Level 9.1 mg/dL (8.5-10.1) Magnesium Level 1.6 mg/dL (1.8-2.4) L Creatine Kinase 42 U/L (26-192) Creatine Kinase MB (Mass) 0.8 ng/mL (0.0-3.6) Creatine Kinase MB Relative Index 1.9 % (0-4) Troponin I Quantitative < 0.017 ng/mL (0-0.055) OJ-Ugh-U-Type Natriuretic Peptide 1607 pg/mL (0-449) H Urine Collection Type Unknown Urine Color Polina Urine Clarity Hazy Urine pH 5.0 Urine Specific [place] >=1.030 Urine Protein 30 mg/dl (NEG-TRACE) Urine Glucose (UA) Neg mg/dL (NEG) Urine Ketones (Stick) Neg mg/dL (NEG) Urine Blood Trace (NEG) Urine Nitrite Pos (NEG) Urine Bilirubin Neg (NEG) Urine Urobilinogen Dipstick 0.2 mg/dL (0.2 mg/dL) Urine Leukocyte Esterase Neg (NEG) Urine RBC 6-10 /HPF (0-2) Urine WBC 11-20 /HPF (0-4) Urine Squamous Epithelial Cells Many /LPF Urine Bacteria Mod /HPF (0-FEW) Urine Hyaline Casts Many /HPF Urine Mucus Marked /LPF Urine Opiates Screen Neg (NEG) Urine Methadone Screen Neg (NEG) Urine Barbiturates Neg (NEG) Urine Phencyclidine Screen Neg (NEG) Urine Amphetamine/Methamphetamine Neg (NEG) Urine Benzodiazepines Screen Pos (NEG) Urine Cocaine Screen Neg (NEG) Urine Cannabinoids Screen Neg (NEG) Urine Ethyl Alcohol Neg (NEG) EKG EKG Afib with rapid vent. rate of 111. Occ. PVC [] Radiology/Procedures Radiology/Procedures My interpretation of CT head shows no shift, mass, edema, bleed, or fracture. Does have bladder disease changes and atrophy Rotation of chest x-ray shows no acute cardiopulmonary findings. Cardiomegaly. Some increased cephalization. DJD joint changes. No acute interval changes.[] Course & Med Decision Making Course & Med Decision Making Pertinent Labs and Imaging studies reviewed. (See chart for details). Discussed presentation, testing and treatment plan with - will admit for further eval and tx. Advised by System Support Technician pt. to be now admitted to Dr. Anaya. [] Final Impression Final Impression 1. Mental Status Change 2. Afib- with Rapid Venticular[]response 3. CHF- BNP 1607 4. Hypomagnesium 5. Hyponatremia 6. Elevated Creat/Bun 7. Leukocytosis 8. Afib. with Rapid Vent. Response 9. UTI Dragon Disclaimer Dragon Disclaimer This electronic medical record was generated, in whole or in part, using a voice recognition dictation system. SHANE RAYMUNDO MD Jul 01, 2018 21:34
--- NOTE | 2018-07-01 21:41 | EKG ---
[address] [address] Test Date: 2018-07-01 Test Time: 21:37:52 Pat Name: WARREN HDEZ Department: Room: Gender: F Puncher: : 1935 Requested By: SHANE RAYMUNDO Order Number: [id number] Reading MD: David Vale MD Measurements Intervals [place] Rate: 111 P: VA: QRS: -12 QRSD: 86 T: 64 QT: 328 QTc: 449 Interpretive Statements ATRIAL FIBRILLATION WITH RVR NON-SPECIFIC ST/T CHANGES Electronically Signed On 07-05-2018 10:34:57 CDT by David Vale MD
[2018-07-01 21:58] LABS: BASO % 0 % (0-3); EOS # 0.3 x10^3/uL (0.0-0.7); EOS % 3 % (0-3); HEMOGLOBIN 14.1 g/dL (12.0-15.5); LYMPH # 1.8 x10^3/uL (1.0-4.8); LYMPH % 17 % (24-48); MEAN CORPUSCULAR HEMOGLOBIN 31 pg (25-35); MEAN CORPUSCULAR HGB CONC 34 g/dL (31-37); MEAN CORPUSCULAR VOLUME 93 fL (79-100); MONO # 1.4 x10^3/uL (0.0-1.1); MONO % 13 % (0-9); NEUT # 7.3 x10^3uL (1.8-7.7); NEUT % 67 % (31-73); PLATELET COUNT 488 x10^3/uL (140-400); RED BLOOD COUNT 4.54 x10^6/uL (3.50-5.40); RED CELL DISTRIBUTION WIDTH 13.5 % (11.5-14.5); WHITE BLOOD COUNT 10.9 x10^3/uL (4.0-11.0)
[2018-07-01 22:18] LABS: CALCIUM 9.1 mg/dL (8.5-10.1); CREATININE 2.5 mg/dL (0.6-1.0); GFR 18.3; MAGNESIUM 1.6 mg/dL (1.8-2.4); POTASSIUM 4.9 mmol/L (3.5-5.1)
--- NOTE | 2018-07-01 22:30 | RAD ---
CT HEAD WO CONTRAST History: Mental status changes, confusion Comparison: December 10, 2014 Technique: Noncontrast CT imaging was performed of the head. Exposure: One or more of the following individualized dose reduction techniques were utilized for this examination: 1. Automated exposure control 2. Adjustment of the mA and/or kV according to patient size 3. Use of iterative reconstruction technique. Findings: No acute extra-axial or parenchymal hemorrhage is identified. There is no significant intra-axial mass effect, midline shift, or extra-axial fluid collection. The pizano-white differentiation of the major vascular territories is preserved. Ventricular size is similar. There is multifocal moderate ill-defined low-density of the supratentorial parenchyma bilaterally, fairly similar in distribution. The mastoid air cells and the visualized paranasal sinuses are aerated. No acute calvarial abnormality is identified. There is atherosclerotic calcification bilateral carotid siphons. There is again old lacunar infarct of the right cerebellum. Impression: 1. No acute intracranial abnormality is identified by CT. There is again multifocal low-density of the supratentorial parenchyma, nonspecific findings most commonly due to chronic microvascular ischemic disease in a patient this age. Electronically signed by: Blake Hdz MD (07/01/2018 10:26 PM) [id number]
[2018-07-01 22:49] LABS: BILIRUBIN,URINE NEG (NEG); CLARITY,URINE HAZY; COLOR,URINE AMBER; GLUCOSE,URINE NEG (NEG)
[2018-07-01 22:50] LABS: HYALINE CASTS, URINE MANY /HPF; NITRITE,URINE POS (NEG); UROBILINOGEN,URINE 0.2 mg/dL (0.2 mg/dL)
[2018-07-01 22:51] LABS: BACTERIA,URINE MOD /HPF (0-FEW); SQUAMOUS EPITHELIAL CELL,UR MANY /LPF
[2018-07-01 22:54] LABS: BARBITURATES NEG (NEG); BENZODIAZEPINES POS (NEG); CANNABINOIDS NEG (NEG); COCAINE NEG (NEG); METHADONE NEG (NEG); OPIATES NEG (NEG); PHENCYCLIDINE NEG (NEG)
[2018-07-01 22:56] LABS: AMPHETAMINE/METHAMPHETAMINE NEG (NEG)
[2018-07-01] MEDS ORDERED: ONDANSETRON PF 4 MG/2 ML VIAL. IV PRN (23:15)
[2018-07-01] MEDS ORDERED: dilTIAZem 25 MG/5 ML VIAL IVP PRN (23:15)
[2018-07-01] MEDS ORDERED: FUROSEMIDE 40 MG/4 ML VIAL IVP ONE (23:45)
[2018-07-01] MEDS ORDERED: MAGNESIUM SULFATE 2GM 50 ML IV ONE (23:45)
[2018-07-01] MEDS ORDERED: CIPROFLOXACIN HCL 500 MG TABLET PO ONE (23:45)
[2018-07-02] VITALS (7 sets, daily range): BP systolic 99–142; BP diastolic 52–79
[2018-07-02] MEDS ORDERED: METOCLOPRAMIDE HCL 10 MG/2 ML VIAL. IV PRN (04:45)
[2018-07-02] MEDS ORDERED: IV NORMAL SALINE 500ML 500 ML IV ONE ×2 (05:00→08:00)
[2018-07-02] MEDS ORDERED: IPRATRPIUM/ALBUTEROL 0.5/2.5MG 3 ML NEBU. ONE (05:25)
[2018-07-02] MEDS: IPRATRPIUM/ALBUTEROL 0.5/2.5MG 3 ML NEBU. NEB SCH ×4 (05:30→16:00)
[2018-07-02] MEDS: IV NORMAL SALINE 1,000ML 1,000 ML IV SCH ×3 (06:00→21:36)
--- NOTE | 2018-07-02 06:23 | RAD ---
CT abdomen and pelvis without contrast 07/02/2018 CLINICAL INDICATION: Nausea and vomiting. History of colectomy and ileostomy. COMPARISON: CT abdomen and pelvis 06/14/2018 TECHNIQUE: Multiple CT images of the abdomen and pelvis were obtained without contrast. *One or more of the following individualized dose reduction techniques were utilized for this examination: 1. Automated exposure control. 2. Adjustment of the mA and/or kV according to patient size. 3. Use of iterative reconstruction technique. FINDINGS: Mild cardiomegaly. Evaluation of the solid abdominal pelvic viscera, lymphadenopathy and vasculature is limited in the absence of intravenous contrast. Unenhanced contours of the liver demonstrate a nodular contour. Cholecystectomy. Unenhanced contours of the spleen, adrenal glands, pancreas and kidneys are grossly unremarkable. Cholecystectomy. Abdominal aorta normal in caliber with moderate aortoiliac calcified atheromatous disease. 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 There is upper omental and perirectal stranding, likely postoperative. Stranding in the fat adjacent to the ostomy also likely postoperative. No bowel obstruction. No pneumoperitoneum. There is a right lower quadrant mesenteric high density structure measuring 1.9 cm series 2/image 95. Irregular bladder is decompressed by Bowman catheter. Prior hysterectomy with the vaginal cuff unremarkable. Dextroconvex lumbar scoliosis. Multilevel lumbar spondylosis. Small intramuscular right flank lipoma. IMPRESSION: 1. 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 No bowel obstruction. 2. Small, 1.9 cm, high density in the right lower quadrant mesentery likely postoperative hematoma. 3. Nodular contour to the surface of liver can be seen with chronic liver disease (cirrhosis). Clinical correlation is recommended. Electronically signed by: Lonny Chao MD (07/02/2018 6:19 AM) [facility]
[2018-07-02 08:49] LABS: CALCIUM 8.7 mg/dL (8.5-10.1); CREATININE 2.5 mg/dL (0.6-1.0); GFR 18.3
[2018-07-02] MEDS ORDERED: CIPROFLOXACIN HCL 250 MG TABLET PO SCH (09:00)
[2018-07-02 09:20] LABS: BASO # 0.1 x10^3/uL (0.0-0.2); BASO % 1 % (0-3); EOS # 0.1 x10^3/uL (0.0-0.7); EOS % 0 % (0-3); HEMATOCRIT 42.9 % (36.0-47.0); LYMPH # 1.3 x10^3/uL (1.0-4.8); LYMPH % 8 % (24-48); MEAN CORPUSCULAR HEMOGLOBIN 30 pg (25-35); MEAN CORPUSCULAR HGB CONC 33 g/dL (31-37); MEAN CORPUSCULAR VOLUME 93 fL (79-100); MONO # 1.2 x10^3/uL (0.0-1.1); MONO % 8 % (0-9); NEUT # 12.7 x10^3uL (1.8-7.7); NEUT % 83 % (31-73); PLATELET COUNT 391 x10^3/uL (140-400); RED BLOOD COUNT 4.64 x10^6/uL (3.50-5.40); RED CELL DISTRIBUTION WIDTH 13.7 % (11.5-14.5); WHITE BLOOD COUNT 15.3 x10^3/uL (4.0-11.0)
--- NOTE | 2018-07-02 09:34 | RAD ---
EXAM: Portable AP view of the chest DATE: 07/01/2018 9:53 PM INDICATION: Mental status changes, confusion, short of air COMPARISON: No Prior FINDINGS: The heart is not enlarged. Mediastinal and hilar contours are normal. No focal parenchymal airspace opacity. No pleural effusion or pneumothorax. Changes of right rotator cuff arthropathy are seen. IMPRESSION: 1. No radiographic evidence for acute cardiopulmonary process. Electronically signed by: David Mcgee MD (07/02/2018 9:31 AM) [facility]
[2018-07-02 11:32] LABS: % LYMPHS 12 % (24-48); % MONOS 6 % (0-10); % SEGS 80 % (35-66); PLT ESTIMATE ADEQUATE (ADEQUATE)
[2018-07-02] MEDS ORDERED: IV NORMAL SALINE 1,000ML 1,000 ML IV ONE (12:00)
[2018-07-02] MEDS: CIPROFLOXACIN 400MG PREMIX 200 ML IV SCH (13:19)
[2018-07-02] MEDS: METOPROLOL TART IMMED RELEASE 25 MG TABLET PO SCH ×3 (13:20→23:33)
--- NOTE | 2018-07-02 14:16 | PDOC1 ---
History of Present Illness History of Present Illness 83-year-old female presented to the emergency department with the complaints of confusion, difficulty with speech, and weakness. Patient had been discharged Thursday from swing bed status at [facility] for PT and OT after undergoing a subtotal colectomy, end ileostomy, and Meckel's diverticulectomy at [facility]. In the emergency department rapid changes in her atrial fibrillation rates from 20-230 ventricular responses were noted. Rate was controlled with 1 bolus of Cardizem intravenously. EKG was atrial fibrillation with a rate of 111 bpm and occasional PVC. Chest x-ray was negative for acute cardiopulmonary processes, and CT head without contrast stable from prior exam with microvascular ischemic disease. Pertinent labs include BNP 1607, BUN 33, creatinine 2.5, urinalysis positive for infection (urine culture from June 14 positive for Escherichia coli sensitive to Cipro). CT abdomen and pelvis: 1. 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 No bowel obstruction. 2. Small, 1.9 cm, high density in the right lower quadrant mesentery likely postoperative hematoma. 3. Nodular contour to the surface of liver can be seen with chronic liver disease (cirrhosis). Clinical correlation is recommended. I found the patient sitting up in a chair in no distress however when she saw me she began complaining of extreme thirst. Her speech is altered, it appears, because her mouth is extremely dry. She does shake her head appropriately answering questions and at times is able to speak in complete sentences despite her dry mouth. She denies any pain, denies chest pain or trouble breathing but does complain of severe weakness generalized as well as thirst. On the floor her heart rate has ranged from 80-132 bpm and vitals have been otherwise stable aside from 2 mildly elevated blood pressures both 142 systolic. 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 She is mostly in a power chair, although she uses a walker to transfer. PAST SURGICAL HISTORY: Significant for total abdominal hysterectomy and bilateral salpingo-oophorectomy, cholecystectomy, bilateral cataract extraction , colonoscopy, esophagogastroduodenoscopy, . She underwent a subtotal colectomy with end ileostomy and Meckel's diverticulectomy recently. FAMILY HISTORY: She has 3 brothers and 5 sisters, older brother of myocardial infarction and CVA in 4 sisters, all of them of complication of diabetes, coronary artery disease and cerebrovascular accident. She has 1 older sister that is alive at the age of 90 and one younger brother, at the age of 77. He is still alive. Her mother at age of 84 because of pneumonia and CVA. Her father committed suicide at age of 52. SOCIAL HISTORY: She is , lives with her son. One of her sons of diabetes and aneurysm. She never smoked, does not drink alcohol. Chief Complaint: WEAKNESS/GENERALIZED Allergies: Coded Allergies: Penicillins (Verified Allergy, Intermediate, Rash, 12/11/14) albuterol (Verified Allergy, Intermediate, Swelling, 12/11/14) ampicillin (Verified Allergy, Intermediate, Itching, 12/11/14) cetirizine (Verified Allergy, Intermediate, 12/11/14) codeine (Verified Allergy, Intermediate, 12/11/14) diphenhydramine HCl (Verified Allergy, Intermediate, Unknown, 12/11/14) erythromycin base (Verified Allergy, Intermediate, Rash, 12/11/14) tetracycline (Verified Allergy, Intermediate, Rash, 12/11/14) I S O L A T I O N *CONTACT* (Verified Allergy, Unknown, 06/15/18) +MRSA screen 03/03/11 rivaroxaban (Verified Allergy, Unknown, 12/15/15) acetaminophen (Verified Adverse Reaction, Intermediate, Nausea and Vomiting, 12/10/14) azithromycin (Verified Adverse Reaction, Intermediate, Diarrhea, 12/10/14) Review of Systems Review Of Systems Due to her speech difficulty an accurate review of systems is unobtainable. Medications Current Medications Magnesium Sulfate 50 ml @ 25 mls/hr 1X ONCE IV Last administered on 07/02/18at 00:26; Start 07/01/18 at 23:45; Stop 07/02/18 at 01:44; Status DC Ciprofloxacin (Cipro) 500 mg 1X ONCE PO Last administered on 07/02/18at 00:26; Start 07/01/18 at 23:45; Stop 07/01/18 at 23:46; Status DC Furosemide (Lasix) 20 mg 1X ONCE IVP Last administered on 07/02/18at 00:26; Start 07/01/18 at 23:45; Stop 07/01/18 at 23:46; Status DC Ondansetron HCl (Zofran) 4 mg PRN Q4HRS PRN IV NAUSEA/VOMITING Last administered on 07/02/18at 04:00; Start 07/01/18 at 23:15; Stop 07/02/18 at 23:14 Albuterol/ Ipratropium (Duoneb) 3 ml RTQID NEB ; Start 07/02/18 at 08:00; Stop 07/03/18 at 07:59 Ciprofloxacin (Cipro) 250 mg BID PO ; Start 07/02/18 at 09:00; Stop 07/02/18 at 11:57; Status DC Diltiazem HCl (Cardizem) 10 mg PRN 1X PRN IVP TACHYCARDIA Last administered on 07/02/18at 04:07; Start 07/01/18 at 23:15 Sodium Chloride 500 ml @ 500 mls/hr 1X ONCE IV Last administered on at 04:54; Start 07/02/18 at 05:00; Stop 07/02/18 at 06:00; Status DC Sodium Chloride 1,000 ml @ 150 mls/hr Q6H40M IV Last administered on at 13:20; Start 07/02/18 at 06:00 Metoclopramide HCl (Reglan Vial) 5 mg PRN Q6HRS PRN IV NAUSEA/VOMITING Last administered on 07/02/18at 04:57; Start 07/02/18 at 04:45 Albuterol/ Ipratropium (Duoneb) 3 ml STK-MED ONCE .ROUTE ; Start 07/02/18 at 05: 25; Stop 07/02/18 at 05:26; Status DC Sodium Chloride 500 ml @ 0 mls/hr 1X ONCE IV Last administered on 07/02/18at 08 :15; Start 07/02/18 at 08:00; Stop 07/02/18 at 08:01; Status DC Lactobacillus Rhamnosus (Culturelle) 1 cap BID PO ; Start 07/02/18 at 21:00 Ciprofloxacin Lactate 200 ml @ 200 mls/hr Q18H IV Last administered on at 13:19; Start 07/02/18 at 12:00 Sodium Chloride 1,000 ml @ 1,000 mls/hr 1X ONCE IV Last administered on at 12:12; Start 07/02/18 at 12:00; Stop 07/02/18 at 12:59; Status DC Metoprolol Tartrate (Lopressor) 25 mg Q6HRS PO Last administered on 07/02/18at 13:20; Start 07/02/18 at 13:00 Active Scripts Active Reported Tramadol Hcl (Tramadol HCl) 50 Mg Tablet 50 Mg PO PRN Q6HRS PRN Amlodipine Besylate 2.5 Mg Tablet 10 Mg PO DAILY Klor-Con M20 (Potassium Chloride) 20 Meq Tab.er.prt 1 Tab PO TID Eliquis (Apixaban) 5 Mg Tablet 5 Mg PO BID Carvedilol 25 Mg Tablet 12.5 Mg PO BIDWMEALS Xopenex (Levalbuterol Hcl) 1.25 Mg/3 Ml Vial.neb 1.25 Mg IH BID for shortness of breath last dose: next dose: Fish Oil 1,000 Mg Capsule ([place]-3 Fatty Acids/Fish Oil) 1 Each Capsule 1 Each PO DAILY supplement last dose: 12/11 @ 8:16 AM next dose: 12/12 AM Alprazolam 0.5 Mg Tablet 0.5 Mg PO HS PRN for anxiety Lisinopril 20 Mg Tablet 20 Mg PO BID for high blood pressure last dose: 12/11 @ 8:16 AM next dose: 12/11 PM Exam Vital Signs Vital Signs Date Time Temp Pulse Resp B/P (MAP) Pulse Ox O2 Delivery O2 Flow Rate FiO2 07/02/18 13:20 132 109/65 07/02/18 10:42 98.8 20 90 Room Air General Appearance: Alert (appears oriented), Cooperative, No acute distress HEENT: Atraumatic (mucous membranes completely dry with scaling of the lip mucous membranes) Respiratory: Clear to auscultation, Normal air movement Heart: Rubs (irregular, no murmur) Abdominal: Soft (and distended, healing postoperative findings consistent with history of present illness, no tenderness, ileostomy at the left lower quadrant) Skin: No rashes (mild pallor with very poor turgor) Neuro: Other (awake and alert and appears to be responding appropriately with dysarthria apparently due to hypovolemia, left-sided hemiparesis) Psych/Mental Status: Other (difficult to determine with her current speech difficulty, she is alert and appears to be oriented she is cooperative) Assessment/Plan Assessment/Plan Urinary tract infection with recent culture positive for Escherichia coli Hypovolemia Acute kidney injury Atrial fibrillation with rapid ventricular response Generalized weakness Questionable mental status change IV hydration Renally dosed ciprofloxacin intravenously Cardiology and neurology consultations COURSE Allergies Coded Allergies Type Severity Reaction Last Updated Verified Penicillins Allergy Intermediate Rash 12/11/14 Yes albuterol Allergy Intermediate Swelling 12/11/14 Yes ampicillin Allergy Intermediate Itching 12/11/14 Yes cetirizine Allergy Intermediate 12/11/14 Yes codeine Allergy Intermediate 12/11/14 Yes diphenhydramine HCl Allergy Intermediate Unknown 12/11/14 Yes erythromycin base Allergy Intermediate Rash 12/11/14 Yes tetracycline Allergy Intermediate Rash 12/11/14 Yes I S O L A T I O N *CONTACT* Allergy Unknown 06/15/18 Yes rivaroxaban Allergy Unknown 12/15/15 Yes acetaminophen Adverse Reaction Intermediate Nausea and Vomiting 12/10/14 Yes azithromycin Adverse Reaction Intermediate Diarrhea 12/10/14 Yes Laboratory Tests Test 07/01/18 21:37 07/01/18 22:09 07/02/18 02:25 07/02/18 08:18 White Blood Count 10.9 x10^3/uL (4.0-11.0) Red Blood Count 4.54 x10^6/uL (3.50-5.40) Hemoglobin 14.1 g/dL (12.0-15.5) Hematocrit 42.0 % (36.0-47.0) Mean Corpuscular Volume 93 fL (79-100) Mean Corpuscular Hemoglobin 31 pg (25-35) Mean Corpuscular Hemoglobin Concent 34 g/dL (31-37) Red Cell Distribution Width 13.5 % (11.5-14.5) Platelet Count 488 x10^3/uL (140-400) Neutrophils (%) (Auto) 67 % (31-73) Lymphocytes (%) (Auto) 17 % (24-48) Monocytes (%) (Auto) 13 % (0-9) Eosinophils (%) (Auto) 3 % (0-3) Basophils (%) (Auto) 0 % (0-3) Neutrophils # (Auto) 7.3 x10^3uL (1.8-7.7) Lymphocytes # (Auto) 1.8 x10^3/uL (1.0-4.8) Monocytes # (Auto) 1.4 x10^3/uL (0.0-1.1) Eosinophils # (Auto) 0.3 x10^3/uL (0.0-0.7) Basophils # (Auto) 0.0 x10^3/uL (0.0-0.2) Prothrombin Time 11.1 SEC (9.4-11.4) Prothromb Time International Ratio 1.1 (0.9-1.1) Activated Partial Thromboplast Time 24 SEC (23-33) Sodium Level 133 mmol/L (136-145) Potassium Level 4.9 mmol/L (3.5-5.1) Chloride Level 97 mmol/L (98-107) Carbon Dioxide Level 26 mmol/L (21-32) Anion Gap 10 (6-14) Blood Urea Nitrogen 33 mg/dL (7-20) Creatinine 2.5 mg/dL (0.6-1.0) Estimated GFR (Cockcroft-Gault) 18.3 Glucose Level 115 mg/dL (70-99) Calcium Level 9.1 mg/dL (8.5-10.1) Magnesium Level 1.6 mg/dL (1.8-2.4) Creatine Kinase 42 U/L (26-192) Creatine Kinase MB (Mass) 0.8 ng/mL (0.0-3.6) Creatine Kinase MB Relative Index 1.9 % (0-4) Troponin I Quantitative < 0.017 ng/mL (0-0.055) < 0.017 ng/mL (0-0.055) VN-Wxm-U-Type Natriuretic Peptide 1607 pg/mL (0-449) Urine Collection Type Unknown Urine Color [place] Urine Clarity Hazy Urine pH 5.0 Urine Specific [place] >=1.030 Urine Protein 30 mg/dl (NEG-TRACE) Urine Glucose (UA) Neg mg/dL (NEG) Urine Ketones (Stick) Neg mg/dL (NEG) Urine Blood Trace (NEG) Urine Nitrite Pos (NEG) Urine Bilirubin Neg (NEG) Urine Urobilinogen Dipstick 0.2 mg/dL (0.2 mg/dL) Urine Leukocyte Esterase Neg (NEG) Urine RBC 6-10 /HPF (0-2) Urine WBC 11-20 /HPF (0-4) Urine Squamous Epithelial Cells Many /LPF Urine Bacteria Mod /HPF (0-FEW) Urine Hyaline Casts Many /HPF Urine Mucus Marked /LPF Urine Opiates Screen Neg (NEG) Urine Methadone Screen Neg (NEG) Urine Barbiturates Neg (NEG) Urine Phencyclidine Screen Neg (NEG) Urine Amphetamine/Methamphetamine Neg (NEG) Urine Benzodiazepines Screen Pos (NEG) Urine Cocaine Screen Neg (NEG) Urine Cannabinoids Screen Neg (NEG) Urine Ethyl Alcohol Neg (NEG) Lactate Dehydrogenase 154 U/L (81-234) Test 07/02/18 08:31 07/02/18 09:10 Sodium Level 135 mmol/L (136-145) Potassium Level 5.0 mmol/L (3.5-5.1) Chloride Level 100 mmol/L (98-107) Carbon Dioxide Level 21 mmol/L (21-32) Anion Gap 14 (6-14) Blood Urea Nitrogen 36 mg/dL (7-20) Creatinine 2.5 mg/dL (0.6-1.0) Estimated GFR (Cockcroft-Gault) 18.3 Glucose Level 116 mg/dL (70-99) Calcium Level 8.7 mg/dL (8.5-10.1) Troponin I Quantitative < 0.017 ng/mL (0-0.055) White Blood Count 15.3 x10^3/uL (4.0-11.0) Red Blood Count 4.64 x10^6/uL (3.50-5.40) Hemoglobin 14.0 g/dL (12.0-15.5) Hematocrit 42.9 % (36.0-47.0) Mean Corpuscular Volume 93 fL (79-100) Mean Corpuscular Hemoglobin 30 pg (25-35) Mean Corpuscular Hemoglobin Concent 33 g/dL (31-37) Red Cell Distribution Width 13.7 % (11.5-14.5) Platelet Count 391 x10^3/uL (140-400) Neutrophils (%) (Auto) 83 % (31-73) Lymphocytes (%) (Auto) 8 % (24-48) Monocytes (%) (Auto) 8 % (0-9) Eosinophils (%) (Auto) 0 % (0-3) Basophils (%) (Auto) 1 % (0-3) Neutrophils # (Auto) 12.7 x10^3uL (1.8-7.7) Lymphocytes # (Auto) 1.3 x10^3/uL (1.0-4.8) Monocytes # (Auto) 1.2 x10^3/uL (0.0-1.1) Eosinophils # (Auto) 0.1 x10^3/uL (0.0-0.7) Basophils # (Auto) 0.1 x10^3/uL (0.0-0.2) Segmented Neutrophils % 80 % (35-66) Lymphocytes % 12 % (24-48) Monocytes % 6 % (0-10) Platelet Estimate Adequate (ADEQUATE) Lactic Acid Level 1.3 mmol/L (0.4-2.0) Current Medications Medications (Trade) Dose Ordered Sig/Cici Route PRN Reason Start Time Stop Time Status Last Admin Dose Admin Magnesium Sulfate 50 ml @ 25 mls/hr 1X ONCE IV 07/01/18 23:45 07/02/18 01:44 DC 07/02/18 00:26 Ciprofloxacin (Cipro) 500 mg 1X ONCE PO 07/01/18 23:45 07/01/18 23:46 DC 07/02/18 00:26 Furosemide (Lasix) 20 mg 1X ONCE IVP 07/01/18 23:45 07/01/18 23:46 DC 07/02/18 00:26 Ondansetron HCl (Zofran) 4 mg PRN Q4HRS PRN IV NAUSEA/VOMITING 07/01/18 23:15 07/02/18 23:14 07/02/18 04:00 Albuterol/ Ipratropium (Duoneb) 3 ml RTQID NEB 07/02/18 08:00 07/03/18 07:59 Ciprofloxacin (Cipro) 250 mg BID PO 07/02/18 09:00 07/02/18 11:57 DC Diltiazem HCl (Cardizem) 10 mg PRN 1X PRN IVP TACHYCARDIA 07/01/18 23:15 07/02/18 04:07 Sodium Chloride 500 ml @ 500 mls/hr 1X ONCE IV 07/02/18 05:00 07/02/18 06:00 DC 07/02/18 04:54 Sodium Chloride 1,000 ml @ 150 mls/hr Q6H40M IV 07/02/18 06:00 07/02/18 13:20 Metoclopramide HCl (Reglan Vial) 5 mg PRN Q6HRS PRN IV NAUSEA/VOMITING 07/02/18 04:45 07/02/18 04:57 Albuterol/ Ipratropium (Duoneb) 3 ml STK-MED ONCE .ROUTE 07/02/18 05:25 07/02/18 05:26 DC Sodium Chloride 500 ml @ 0 mls/hr 1X ONCE IV 07/02/18 08:00 07/02/18 08:01 DC 07/02/18 08:15 Lactobacillus Rhamnosus (Culturelle) 1 cap BID PO 07/02/18 21:00 Ciprofloxacin Lactate 200 ml @ 200 mls/hr Q18H IV 07/02/18 12:00 07/02/18 13:19 Sodium Chloride 1,000 ml @ 1,000 mls/hr 1X ONCE IV 07/02/18 12:00 07/02/18 12:59 DC 07/02/18 12:12 Metoprolol Tartrate (Lopressor) 25 mg Q6HRS PO 07/02/18 13:00 07/02/18 13:20 Orders Procedure Category Date Status Time Vital Signs ER 07/01/18 Transmitted 21:35 Bp Monitoring ER 07/01/18 Transmitted 21:35 Manager Research Development ER 07/01/18 Transmitted 21:35 Continuous Pulse ER 07/01/18 Transmitted Oximetry 21:35 Temperature Monitoring ER 07/01/18 Transmitted 21:35 Saline Lock ER 07/01/18 Transmitted 21:35 Cath Bladder ER 07/01/18 Transmitted Non-Indwelling 21:35 Basic Metabolic Panel LAB 07/01/18 Complete 21:35 Cbc W Autodiff LAB 07/01/18 Complete 21:35 Ua, Cult If Indicated LAB 07/01/18 Complete 21:35 Drugs Of Abuse Ur LAB 07/01/18 Complete 21:35 Portable Chest 1v RAD 07/01/18 Resulted 21:35 Ct Head Wo Contrast CT 07/01/18 Resulted 21:35 12 Lead Ekg EKG 07/01/18 Complete 21:35 Protime LAB 07/01/18 Complete 21:35 Partial LAB 07/01/18 Complete Thromboplastin Time 21:35 Creatine Kinase LAB 07/01/18 Complete 21:35 Ckmb Isoenzymes LAB 07/01/18 Complete 21:35 Troponin I LAB 07/01/18 Complete 21:35 Magnesium LAB 07/01/18 Complete 21:35 Nt-Pro Bnp LAB 07/01/18 Complete 21:35 Urine Culture ALLISON 07/01/18 In Process 22:52 Magnesium Sulfate 2gm PHA 07/01/18 Complete (Magnesium Sulfate 23:45 Ciprofloxacin Hcl PHA 07/01/18 Complete (Cipro) 23:45 Furosemide Inj (Lasix) PHA 07/01/18 Complete 23:45 Ed Bridge Order ADT 07/01/18 Transmitted 23:12 Code Status CODE 07/01/18 Transmitted 23:12 Vital Signs, Per [facility] 07/01/18 In Process Protocol 23:12 Oxygen [facility] 07/01/18 In Process 23:12 Advance Diet As [facility] 07/01/18 In Process Tolerated 23:12 Ambulate With [facility] 07/01/18 In Process Assistance 23:12 Up In Chair With [facility] 07/01/18 In Process Assistance 23:12 Fall Precautions [facility] 07/01/18 In Process 23:12 Cbc W Autodiff LAB 07/02/18 Complete 06:00 Basic Metabolic Panel LAB 07/02/18 Complete 06:00 Ondansetron Pf PHA 07/01/18 In Process (Zofran) 23:15 Troponin I LAB 07/02/18 Complete 02:12 Neuro Check Q 4 Hrs [facility] 07/01/18 In Process 23:12 Ipratrpium/Albuterol PHA 07/02/18 In Process 0.5/2.5mg (Duoneb) 08:00 Incentive Spirometer RT 07/01/18 Complete Incentive Spirometry [facility] 07/01/18 In Process 23:12 Pneumatic Compression [facility] 07/01/18 In Process Device 23:12 Glucose Poct Q6h [facility] 07/01/18 In Process 23:12 Daily Weight [facility] 07/01/18 In Process 23:12 Diltiazem Iv Push PHA 07/01/18 In Process (Cardizem) 23:15 Airway Inhalation RT 07/01/18 Complete Treatment 23:12 Ciprofloxacin Hcl PHA 07/02/18 Complete (Cipro) 09:00 Mrsa By Pcr LAB 07/02/18 In Process 01:29 Rehab Screening (Pt, REHAB 07/03/18 Logged Ot, St) 07:00 Isolation OTHER 07/02/18 Transmitted 03:19 Apply Leonard Stockings MARCIANO 07/02/18 In Process And Heraclio Wr 03:19 Admission Screening CONS 07/02/18 Transmitted 03:28 High Risk Dc CONS 07/02/18 Transmitted Readmission 03:28 Rehab Screening (Pt, REHAB 07/03/18 Logged Ot, St) 07:00 Troponin I LAB 07/02/18 Complete 08:25 Insert And Maintain MARCIANO 07/02/18 In Process Bowman Cath 04:43 Iv Normal Saline PHA 07/02/18 Complete 500ml (Iv Sodium 05:00 Iv Normal Saline PHA 07/02/18 In Process 1,000ml (Iv Sodium 06:00 Metoclopramide Hcl PHA 07/02/18 In Process (Reglan Vial) 04:45 Ct Abdomen Pelvis Wo CT 07/02/18 Resulted Contrast 04:50 Ipratrpium/Albuterol PHA 07/02/18 Complete 0.5/2.5mg (Duoneb) 05:25 Wound Care Consult CONS 07/02/18 Transmitted 06:20 Regular DIET 07/02/18 Transmitted Breakfast Lactic Acid LAB 07/02/18 Complete 07:30 Lactate Dehydrogenase LAB 07/02/18 Complete 07:30 Iv Normal Saline PHA 07/02/18 Complete 500ml (Iv Sodium 08:00 Consult Physician By CONS 07/02/18 Transmitted Name 08:04 Pt Eval And Treat PT 07/02/18 Complete 08:04 Ot Eval And Treat OT 07/02/18 Complete 08:04 St-Bedside Swallow ST 07/02/18 Logged Eval\Treat Manual Differential LAB 07/02/18 Complete 09:10 Blood Culture ALLISON 07/02/18 In Process 10:32 Lactobacillus PHA 07/02/18 In Process Rhamnosus Gg 21:00 Admit Orders ADT 07/02/18 Verified 11:31 Free Text Nursing MARCIANO 07/02/18 In Process Order 11:42 Free Text Nursing MARCIANO 07/02/18 In Process Order 11:42 Free Text Nursing MARCIANO 07/02/18 In Process Order 11:42 Basic Metabolic Panel LAB 07/03/18 Verified 05:00 Cbc W Autodiff LAB 07/03/18 Verified 05:00 Consult Physician By CONS 07/02/18 Transmitted Name 11:52 Ciprofloxacin 400mg PHA 07/02/18 In Process Premix (Cipro 400mg 12:00 Iv Normal Saline PHA 07/02/18 Complete 1,000ml (Iv Sodium 12:00 Echocardiogram ECHO 07/02/18 Logged 12:57 Metoprolol Tart Immed PHA 07/02/18 In Process Release (Lopressor 13:00 Vital Signs Date Time Temp Pulse Resp B/P (MAP) Pulse Ox O2 Delivery O2 Flow Rate FiO2 07/02/18 13:20 132 109/65 07/02/18 10:42 98.8 20 90 Room Air RIDGE ISSA DO Jul 02, 2018 14:16
--- NOTE | 2018-07-02 16:56 | CARD ---
MR#: [id number] Date of Study: 07/02/2018 Ordering Physician: BRIDGET CHE, Referring Physician: KENTRELL SHAFFER Tech: DANYELLE Ayoub APPROVED REPORT EXAM: Two-dimensional and M-mode echocardiogram with Doppler and color Doppler. Other Information Quality : AverageHR: 88bpm Technically limited study due to body habitus. INDICATION Atrial Fibrillation 2D DIMENSIONS RVDd3.1 (2.9-3.5cm)Left Atrium(2D)3.9 (1.6-4.0cm) IVSd1.5 (0.7-1.1cm)Aortic Root(2D)2.5 (2.0-3.7cm) LVDd3.2 (3.9-5.9cm)LVOT Diameter1.6 (1.8-2.4cm) PWd1.5 (0.7-1.1cm)LVDs2.3 (2.5-4.0cm) FS (%) 28.8 %SV23.1 ml LVEF(%)56.8 (>50%) Aortic Valve AoV Peak Gregory.120.5cm/sAoV VTI22.7cm AO Peak GR.5.8mmHgLVOT Peak Gregory.84.6cm/s LVOT VTI 12.91cmAO Mean GR.3mmHg REBECCA (VMAX)1.20kf8EKG (VTI)1.13cm2 Mitral Valve MV [id number] (PHT)3.91cm2 Pulmonary Valve PV Peak Zikrkvuk547.5cm/sPV Peak Grad.5mmHg Tricuspid Valve TR P. [id number] [id number] TR Peak Gr.[id number] LEFT VENTRICLE The left ventricle cavity is small. There is moderate concentric left ventricular hypertrophy. The le ft ventricular systolic function is normal. The ejection fraction is 55%. There is normal LV segmenta l wall motion. RIGHT VENTRICLE The right ventricle is normal size. The right ventricular systolic function is normal. ATRIA The left atrium is mildly dilated. The right atrium size is normal. The interatrial septum is intact with no evidence for an atrial septal defect or patent foramen ovale as noted on 2-D or Doppler imagi ng. AORTIC VALVE The aortic valve is mildly thickened but opens well. Doppler and Color Flow revealed no significant a ortic regurgitation. There is no significant aortic valvular stenosis. There is no aortic valvular ve getation. MITRAL VALVE The mitral valve is thickened but opens well. There is no evidence of mitral valve prolapse. There is no mitral valve stenosis. Doppler and Color-flow revealed trace mitral regurgitation. TRICUSPID VALVE The tricuspid valve leaflets are thickened , but open well. Doppler and Color Flow revealed mild tric uspid regurgitation. The PA pressure was estimated at 39 mmHg. There is no tricuspid valve prolapse o r vegetation. There is no tricuspid valve stenosis. PULMONIC VALVE The pulmonic valve is not well visualized. Doppler and Color Flow revealed trace pulmonic valvular re gurgitation. There is no pulmonic valvular stenosis. GREAT VESSELS The aortic root is normal in size. The IVC is normal in size and collapses <50% with inspiration. PERICARDIAL EFFUSION There is no pleural effusion. There is no evidence of significant pericardial effusion. Critical Notification Critical Value: No <Conclusion> The left ventricular systolic function is normal. The ejection fraction is 55%. The left atrium is mildly dilated. Trace mitral regurgitation. Mild tricuspid regurgitation. The PA pressure was estimated at 39 mmHg. There is no evidence of significant pericardial effusion. Signed by : Wilner Wallace, Electronically Approved : 07/02/2018 16:54:37
--- NOTE | 2018-07-02 17:17 | PDOC2 ---
CONSULT Date of Admission DATE: 07/02/18 TIME: 17:09 Reason for Consult: Atrial fibrillation Referring Physician: Dr. Ribeiro Chief Complaint Mental status changes Source: Chart review, Patient Problem List Problems Medical Problems: (1) Mental status change resolved Status: Acute History of Present Illness 83-year-old female with history of atrial fibrillation has been admitted with mental status changes and was noted to have rapid ventricular response. She was recently discharged from [facility] after treatment for abdominal pain , nausea and vomiting. She was found to be in atrial fibrillation at that time as well. She is not a very good historian but denied any chest pain or palpitations. Past Medical History Atrial fibrillation Hypertension Osteoarthritis Hyperlipidemia Stroke Past Surgical History Hysterectomy Cholecystectomy Cataract extraction Subtotal colectomy and ileostomy Family History not contributory Social History Patient is a nonsmoker and nondrinker Current Medications Current Medications Magnesium Sulfate 50 ml @ 25 mls/hr 1X ONCE IV Last administered on 07/02/18at 00:26; Start 07/01/18 at 23:45; Stop 07/02/18 at 01:44; Status DC Ciprofloxacin (Cipro) 500 mg 1X ONCE PO Last administered on 07/02/18at 00:26; Start 07/01/18 at 23:45; Stop 07/01/18 at 23:46; Status DC Furosemide (Lasix) 20 mg 1X ONCE IVP Last administered on 07/02/18at 00:26; Start 07/01/18 at 23:45; Stop 07/01/18 at 23:46; Status DC Ondansetron HCl (Zofran) 4 mg PRN Q4HRS PRN IV NAUSEA/VOMITING Last administered on 07/02/18at 04:00; Start 07/01/18 at 23:15; Stop 07/02/18 at 23:14 Albuterol/ Ipratropium (Duoneb) 3 ml RTQID NEB ; Start 07/02/18 at 08:00; Stop 07/03/18 at 07:59 Ciprofloxacin (Cipro) 250 mg BID PO ; Start 07/02/18 at 09:00; Stop 07/02/18 at 11:57; Status DC Diltiazem HCl (Cardizem) 10 mg PRN 1X PRN IVP TACHYCARDIA Last administered on 07/02/18at 04:07; Start 07/01/18 at 23:15 Sodium Chloride 500 ml @ 500 mls/hr 1X ONCE IV Last administered on at 04:54; Start 07/02/18 at 05:00; Stop 07/02/18 at 06:00; Status DC Sodium Chloride 1,000 ml @ 150 mls/hr Q6H40M IV Last administered on at 13:20; Start 07/02/18 at 06:00 Metoclopramide HCl (Reglan Vial) 5 mg PRN Q6HRS PRN IV NAUSEA/VOMITING Last administered on 07/02/18at 04:57; Start 07/02/18 at 04:45 Albuterol/ Ipratropium (Duoneb) 3 ml STK-MED ONCE .ROUTE ; Start 07/02/18 at 05: 25; Stop 07/02/18 at 05:26; Status DC Sodium Chloride 500 ml @ 0 mls/hr 1X ONCE IV Last administered on 07/02/18at 08 :15; Start 07/02/18 at 08:00; Stop 07/02/18 at 08:01; Status DC Lactobacillus Rhamnosus (Culturelle) 1 cap BID PO ; Start 07/02/18 at 21:00 Ciprofloxacin Lactate 200 ml @ 200 mls/hr Q18H IV Last administered on at 13:19; Start 07/02/18 at 12:00 Sodium Chloride 1,000 ml @ 1,000 mls/hr 1X ONCE IV Last administered on at 12:12; Start 07/02/18 at 12:00; Stop 07/02/18 at 12:59; Status DC Metoprolol Tartrate (Lopressor) 25 mg Q6HRS PO Last administered on 07/02/18at 13:20; Start 07/02/18 at 13:00 Active Scripts Active Reported Tramadol Hcl (Tramadol HCl) 50 Mg Tablet 50 Mg PO PRN Q6HRS PRN Amlodipine Besylate 2.5 Mg Tablet 10 Mg PO DAILY Klor-Con M20 (Potassium Chloride) 20 Meq Tab.er.prt 1 Tab PO TID Eliquis (Apixaban) 5 Mg Tablet 5 Mg PO BID Carvedilol 25 Mg Tablet 12.5 Mg PO BIDWMEALS Xopenex (Levalbuterol Hcl) 1.25 Mg/3 Ml Vial.neb 1.25 Mg IH BID for shortness of breath last dose: next dose: Fish Oil 1,000 Mg Capsule ([place]-3 Fatty Acids/Fish Oil) 1 Each Capsule 1 Each PO DAILY supplement last dose: 12/11 @ 8:16 AM next dose: 12/12 AM Alprazolam 0.5 Mg Tablet 0.5 Mg PO HS PRN for anxiety Lisinopril 20 Mg Tablet 20 Mg PO BID for high blood pressure last dose: 12/11 @ 8:16 AM next dose: 12/11 PM Allergies: Coded Allergies: Penicillins (Verified Allergy, Intermediate, Rash, 12/11/14) albuterol (Verified Allergy, Intermediate, Swelling, 12/11/14) ampicillin (Verified Allergy, Intermediate, Itching, 12/11/14) cetirizine (Verified Allergy, Intermediate, 12/11/14) codeine (Verified Allergy, Intermediate, 12/11/14) diphenhydramine HCl (Verified Allergy, Intermediate, Unknown, 12/11/14) erythromycin base (Verified Allergy, Intermediate, Rash, 12/11/14) tetracycline (Verified Allergy, Intermediate, Rash, 12/11/14) I S O L A T I O N *CONTACT* (Verified Allergy, Unknown, 06/15/18) +MRSA screen 03/03/11 rivaroxaban (Verified Allergy, Unknown, 12/15/15) acetaminophen (Verified Adverse Reaction, Intermediate, Nausea and Vomiting, 12/10/14) azithromycin (Verified Adverse Reaction, Intermediate, Diarrhea, 12/10/14) Review of System Full review of systems cannot be obtained since patient is a poor historian General: Alert, No acute distress HEENT: Atraumatic, PERRLA Lungs: Clear to auscultation Heart: Other (heart rate is irregular) Abdomen: Soft Extremities: No edema Psych/Mental Status: Mood NL VITALS Vital Signs Date Time Temp Pulse Resp B/P (MAP) Pulse Ox O2 Delivery O2 Flow Rate FiO2 07/02/18 14:58 99.6 87 20 107/73 (84) 99 Room Air Labs Laboratory Tests Test 07/01/18 21:37 07/01/18 22:09 07/02/18 02:25 07/02/18 08:18 White Blood Count 10.9 x10^3/uL (4.0-11.0) Red Blood Count 4.54 x10^6/uL (3.50-5.40) Hemoglobin 14.1 g/dL (12.0-15.5) Hematocrit 42.0 % (36.0-47.0) Mean Corpuscular Volume 93 fL (79-100) Mean Corpuscular Hemoglobin 31 pg (25-35) Mean Corpuscular Hemoglobin Concent 34 g/dL (31-37) Red Cell Distribution Width 13.5 % (11.5-14.5) Platelet Count 488 x10^3/uL (140-400) Neutrophils (%) (Auto) 67 % (31-73) Lymphocytes (%) (Auto) 17 % (24-48) Monocytes (%) (Auto) 13 % (0-9) Eosinophils (%) (Auto) 3 % (0-3) Basophils (%) (Auto) 0 % (0-3) Neutrophils # (Auto) 7.3 x10^3uL (1.8-7.7) Lymphocytes # (Auto) 1.8 x10^3/uL (1.0-4.8) Monocytes # (Auto) 1.4 x10^3/uL (0.0-1.1) Eosinophils # (Auto) 0.3 x10^3/uL (0.0-0.7) Basophils # (Auto) 0.0 x10^3/uL (0.0-0.2) Prothrombin Time 11.1 SEC (9.4-11.4) Prothromb Time International Ratio 1.1 (0.9-1.1) Activated Partial Thromboplast Time 24 SEC (23-33) Sodium Level 133 mmol/L (136-145) Potassium Level 4.9 mmol/L (3.5-5.1) Chloride Level 97 mmol/L (98-107) Carbon Dioxide Level 26 mmol/L (21-32) Anion Gap 10 (6-14) Blood Urea Nitrogen 33 mg/dL (7-20) Creatinine 2.5 mg/dL (0.6-1.0) Estimated GFR (Cockcroft-Gault) 18.3 Glucose Level 115 mg/dL (70-99) Calcium Level 9.1 mg/dL (8.5-10.1) Magnesium Level 1.6 mg/dL (1.8-2.4) Creatine Kinase 42 U/L (26-192) Creatine Kinase MB (Mass) 0.8 ng/mL (0.0-3.6) Creatine Kinase MB Relative Index 1.9 % (0-4) Troponin I Quantitative < 0.017 ng/mL (0-0.055) < 0.017 ng/mL (0-0.055) FM-Aas-Z-Type Natriuretic Peptide 1607 pg/mL (0-449) Urine Collection Type Unknown Urine Color Polina Urine Clarity Hazy Urine pH 5.0 Urine Specific [place] >=1.030 Urine Protein 30 mg/dl (NEG-TRACE) Urine Glucose (UA) Neg mg/dL (NEG) Urine Ketones (Stick) Neg mg/dL (NEG) Urine Blood Trace (NEG) Urine Nitrite Pos (NEG) Urine Bilirubin Neg (NEG) Urine Urobilinogen Dipstick 0.2 mg/dL (0.2 mg/dL) Urine Leukocyte Esterase Neg (NEG) Urine RBC 6-10 /HPF (0-2) Urine WBC 11-20 /HPF (0-4) Urine Squamous Epithelial Cells Many /LPF Urine Bacteria Mod /HPF (0-FEW) Urine Hyaline Casts Many /HPF Urine Mucus Marked /LPF Urine Opiates Screen Neg (NEG) Urine Methadone Screen Neg (NEG) Urine Barbiturates Neg (NEG) Urine Phencyclidine Screen Neg (NEG) Urine Amphetamine/Methamphetamine Neg (NEG) Urine Benzodiazepines Screen Pos (NEG) Urine Cocaine Screen Neg (NEG) Urine Cannabinoids Screen Neg (NEG) Urine Ethyl Alcohol Neg (NEG) Lactate Dehydrogenase 154 U/L (81-234) Test 07/02/18 08:31 07/02/18 09:10 Sodium Level 135 mmol/L (136-145) Potassium Level 5.0 mmol/L (3.5-5.1) Chloride Level 100 mmol/L (98-107) Carbon Dioxide Level 21 mmol/L (21-32) Anion Gap 14 (6-14) Blood Urea Nitrogen 36 mg/dL (7-20) Creatinine 2.5 mg/dL (0.6-1.0) Estimated GFR (Cockcroft-Gault) 18.3 Glucose Level 116 mg/dL (70-99) Calcium Level 8.7 mg/dL (8.5-10.1) Troponin I Quantitative < 0.017 ng/mL (0-0.055) White Blood Count 15.3 x10^3/uL (4.0-11.0) Red Blood Count 4.64 x10^6/uL (3.50-5.40) Hemoglobin 14.0 g/dL (12.0-15.5) Hematocrit 42.9 % (36.0-47.0) Mean Corpuscular Volume 93 fL (79-100) Mean Corpuscular Hemoglobin 30 pg (25-35) Mean Corpuscular Hemoglobin Concent 33 g/dL (31-37) Red Cell Distribution Width 13.7 % (11.5-14.5) Platelet Count 391 x10^3/uL (140-400) Neutrophils (%) (Auto) 83 % (31-73) Lymphocytes (%) (Auto) 8 % (24-48) Monocytes (%) (Auto) 8 % (0-9) Eosinophils (%) (Auto) 0 % (0-3) Basophils (%) (Auto) 1 % (0-3) Neutrophils # (Auto) 12.7 x10^3uL (1.8-7.7) Lymphocytes # (Auto) 1.3 x10^3/uL (1.0-4.8) Monocytes # (Auto) 1.2 x10^3/uL (0.0-1.1) Eosinophils # (Auto) 0.1 x10^3/uL (0.0-0.7) Basophils # (Auto) 0.1 x10^3/uL (0.0-0.2) Segmented Neutrophils % 80 % (35-66) Lymphocytes % 12 % (24-48) Monocytes % 6 % (0-10) Platelet Estimate Adequate (ADEQUATE) Lactic Acid Level 1.3 mmol/L (0.4-2.0) Assessment/Plan 1. Atrial fibrillation with rapid ventricular response: Heart rate better controlled since admission. 2-D echo showed normal LV systolic function. Continue beta blockers. She is probably a poor candidate for long-term anticoagulation due to fall risk. Consider initiating aspirin 2. Hypertension: Controlled 3. Urinary tract infection: Continue ciprofloxacin 4. Mental status changes probably secondary to UTI Thank you for your consultation WICHO RODRIGUEZ MD Jul 02, 2018 17:17
[2018-07-02 19:26] LABS: CALCIUM 7.9 mg/dL (8.5-10.1); GFR 23.7; POTASSIUM 4.3 mmol/L (3.5-5.1)
[2018-07-02] MEDS: LACTOBACILLUS RHAMNOSUS GG 1 CAPSULE. PO SCH (21:36)
--- NOTE | 2018-07-02 22:56 | CONS ---
DATE OF CONSULTATION: NEURO CONSULT REFERRING PHYSICIAN: Carissa Anaya MD/Andrew Ribeiro DO REASON FOR CONSULTATION: Acute mental status changes. HISTORY OF PRESENT ILLNESS: This is an 83-year-old right-handed female, who was admitted through Emergency Room after she presented with chief complaints of confusion, generalized weakness and difficulty to speak. The patient has been discharged recently from [facility] bed after she underwent subtotal colectomy and ileostomy. In the Emergency Room, the patient was found to have atrial fibrillations at rate of ____. She was given one bolus of Cardizem intravenously. Subsequently, the heart rate went down to 111. Initial nonenhanced head CT scan revealed no evidence of acute intracranial process but showed microvascular ischemic disease. Currently, the patient is confused and able to provide concrete information at this time; however, she denies headaches, visual disturbances, chest pain or shortness of breath. 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 PAST SURGICAL HISTORY: Past surgical history is significant for a recent abdominal surgery with colectomy, hysterectomy, cholecystectomy, cataract extractions, . SOCIAL HISTORY: The patient lives with her son at home. She denies smoking. There is no history of smoking, alcohol drinking, or illicit drug use. FAMILY HISTORY: Her father from myocardial infarction. She has 4 sisters with stroke, diabetes mellitus, and coronary artery disease. One older sister is alive at the age of 90 and brother at the age of 77. Her mother at age of 84 from pneumonia and stroke and her father committed suicide at age of 52. CURRENT HOME MEDICATIONS: Includes metoprolol 25 mg q. 6 hours p.r.n., albuterol inhaler, alprazolam 0.5 mg tablet, amlodipine 2.5 mg tablet daily, and Eliquis 5 mg daily, carvedilol 25 mg daily, lisinopril 20 mg daily, omega fish oil, potassium chloride, and tramadol p.r.n. ALLERGIES: THE PATIENT IS ALLERGIC TO PENICILLIN, ACETAMINOPHEN, ALBUTEROL, AMPICILLIN, AZITHROMYCIN, CETIRIZINE, CODEINE, ERYTHROMYCIN, RIVAROXABAN, AND TETRACYCLINE. REVIEW OF SYSTEMS: A 10-point review of system was performed and consistent with confusion and generalized weakness and speech dysfunction along with left hemiparesis. PHYSICAL EXAMINATION: GENERAL: Well-developed, well-nourished female, not in acute distress. VITAL SIGNS: Blood pressure 137/70, respiratory rate 20, pulse is 89, temperature 97.1, oxygen saturation 95% on room air. HEENT: Normocephalic, atraumatic, otherwise unremarkable. NECK: Supple. Negative for carotid bruit, lymphadenopathy or thyromegaly. LUNGS: Are clear to A and P. CARDIOVASCULAR: Irregularly irregular rhythm, no murmur. Normal S1 and S2. ABDOMEN: Soft. Bowel sounds positive. EXTREMITIES: Are negative for cyanosis, clubbing, pitting edema. NEUROLOGICAL EXAMINATION: Mental Status: The patient is awake, but confused, disoriented. Speech is fluent, but not legible. She follows 1-step commands. Judgment, memory and abstract thinking are poor. Cranial nerves: Pupils are equal. Extraocular movements are intact. There is no nystagmus. There is no facial asymmetry. Hearing appeared to be intact. The palate is elevated symmetrically. Sternocleidomastoid muscles are powerful bilaterally. The patient shrugs her shoulders symmetrically, protrudes her tongue in the midline without fasciculation or atrophy. Motor examination: The patient is sitting in wheelchair and she moves her upper extremities but ____ upper and lower extremity with left moderate hemiparesis. Sensory examination revealed normal pinprick and light touch senses. Deep tendon reflexes were hypoactive with absent acute responses. Gait not tested as the patient confined to in wheelchair. LABORATORY DATA: CBC revealed white blood cells of 15.3 thousand, hemoglobin 14, hematocrit 42.9, platelet count 391,000. Chemistry revealed sodium of 135, potassium 5, chloride 100, CO2 of 21, BUN 36, creatinine 2.5, glucose 116, and calcium 8.7. Troponin level is normal. Lactate is 154. Urinalysis is consistent with urinary tract infections, but negative urinary leukocyte esterase with white blood cells of 11-20 and moderate bacteria, but urine nitrite is positive. Urine drug screen is positive for benzodiazepine. DIAGNOSTIC DATA: Nonenhanced CT scan revealed no evidence of acute intracranial process, but positive for small vessel ischemic disease. Abdominal CT revealed subtotal colectomy with left lower quadrant ileostomy. No bowel obstructions and possible cirrhosis. Chest x-ray revealed no evidence of acute cardiopulmonary process. IMPRESSION: 1. Acute encephalopathy, probably multifactorial and called urinary tract infections, dehydration, acute renal failure. 2. Atrial fibrillations with ventricular response. 3. 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 RECOMMENDATIONS: 1. Correct the underlying systemic infections and careful hydration. 2. Continue with current management initiated by Dr. Ribeiro. 3. Physical therapy evaluation. M Randy PEDRO MD DR: NAEEM/tash JOB#: [id number] / [id number]
[2018-07-03 05:15] VITALS: BP 141/79
[2018-07-03] MEDS: IV NORMAL SALINE 1,000ML 1,000 ML IV SCH ×4 (05:24→23:53)
[2018-07-03] MEDS: CIPROFLOXACIN 400MG PREMIX 200 ML IV SCH ×2 (05:24→23:53)
[2018-07-03] MEDS: METOPROLOL TART IMMED RELEASE 25 MG TABLET PO SCH ×4 (05:28→23:54)
[2018-07-03 06:52] LABS: BASO # 0.1 x10^3/uL (0.0-0.2); BASO % 1 % (0-3); EOS # 0.1 x10^3/uL (0.0-0.7); EOS % 2 % (0-3); HEMATOCRIT 32.6 % (36.0-47.0); LYMPH # 0.9 x10^3/uL (1.0-4.8); LYMPH % 10 % (24-48); MEAN CORPUSCULAR HEMOGLOBIN 31 pg (25-35); MEAN CORPUSCULAR HGB CONC 34 g/dL (31-37); MEAN CORPUSCULAR VOLUME 93 fL (79-100); MONO % 11 % (0-9); NEUT % 77 % (31-73); PLATELET COUNT 295 x10^3/uL (140-400); RED BLOOD COUNT 3.53 x10^6/uL (3.50-5.40); RED CELL DISTRIBUTION WIDTH 12.9 % (11.5-14.5); WHITE BLOOD COUNT 9.2 x10^3/uL (4.0-11.0)
[2018-07-03 07:13] LABS: CALCIUM 7.9 mg/dL (8.5-10.1); CREATININE 1.4 mg/dL (0.6-1.0); GFR 35.7; POTASSIUM 3.6 mmol/L (3.5-5.1)
[2018-07-03] MEDS: LACTOBACILLUS RHAMNOSUS GG 1 CAPSULE. PO SCH ×2 (09:03→20:51)
[2018-07-03 10:15] VITALS: BP 124/73
--- NOTE | 2018-07-03 12:10 | PDOC ---
SUBJECTIVE: I find the patient today sitting up in bed with her son at bedside. Her speech is now coherent with moist oral mucosa. She remembers talking with me yesterday and admits that yesterday she did have periods of confusion and lucidity. She's feeling much better with the antibiotics and IV hydration and her primary concern is removing the Bowman. Now that she is able to communicate with the nurses Bowman will be DC'd. She denies any other complaints and is very pleasant today. She's not had any further episodes of rapid ventricular response and has been evaluated by cardiology. Her initial creatinine 2.5 improved to 2.0 yesterday afternoon and today is 1.4. There is no report yet from her urine culture and her nasal MRSA screen is positive. Her vital signs are stable. OBJECTIVE: Problems: Problems Medical Problems: (1) Mental status change resolved Status: Acute Vital Signs: Vital Signs Date Time Temp Pulse Resp B/P (MAP) Pulse Ox O2 Delivery O2 Flow Rate FiO2 07/03/18 10:15 98.3 83 20 124/73 (90) 97 Room Air I & O Intake and Output 07/03/18 07:00 Intake Total 4419.44 ml Output Total 1400 ml Balance 3019.44 ml Intake Oral 580 ml IV Total 3839.44 ml Output Urine Total 900 ml Stool Total 500 ml Labs: Laboratory Tests Test 07/01/18 21:37 07/01/18 22:09 07/02/18 01:25 07/02/18 02:25 White Blood Count 10.9 x10^3/uL (4.0-11.0) Red Blood Count 4.54 x10^6/uL (3.50-5.40) Hemoglobin 14.1 g/dL (12.0-15.5) Hematocrit 42.0 % (36.0-47.0) Mean Corpuscular Volume 93 fL (79-100) Mean Corpuscular Hemoglobin 31 pg (25-35) Mean Corpuscular Hemoglobin Concent 34 g/dL (31-37) Red Cell Distribution Width 13.5 % (11.5-14.5) Platelet Count 488 x10^3/uL (140-400) Neutrophils (%) (Auto) 67 % (31-73) Lymphocytes (%) (Auto) 17 % (24-48) Monocytes (%) (Auto) 13 % (0-9) Eosinophils (%) (Auto) 3 % (0-3) Basophils (%) (Auto) 0 % (0-3) Neutrophils # (Auto) 7.3 x10^3uL (1.8-7.7) Lymphocytes # (Auto) 1.8 x10^3/uL (1.0-4.8) Monocytes # (Auto) 1.4 x10^3/uL (0.0-1.1) Eosinophils # (Auto) 0.3 x10^3/uL (0.0-0.7) Basophils # (Auto) 0.0 x10^3/uL (0.0-0.2) Prothrombin Time 11.1 SEC (9.4-11.4) Prothromb Time International Ratio 1.1 (0.9-1.1) Activated Partial Thromboplast Time 24 SEC (23-33) Sodium Level 133 mmol/L (136-145) Potassium Level 4.9 mmol/L (3.5-5.1) Chloride Level 97 mmol/L (98-107) Carbon Dioxide Level 26 mmol/L (21-32) Anion Gap 10 (6-14) Blood Urea Nitrogen 33 mg/dL (7-20) Creatinine 2.5 mg/dL (0.6-1.0) Estimated GFR (Cockcroft-Gault) 18.3 Glucose Level 115 mg/dL (70-99) Calcium Level 9.1 mg/dL (8.5-10.1) Magnesium Level 1.6 mg/dL (1.8-2.4) Creatine Kinase 42 U/L (26-192) Creatine Kinase MB (Mass) 0.8 ng/mL (0.0-3.6) Creatine Kinase MB Relative Index 1.9 % (0-4) Troponin I Quantitative < 0.017 ng/mL (0-0.055) < 0.017 ng/mL (0-0.055) HW-Lfx-E-Type Natriuretic Peptide 1607 pg/mL (0-449) Urine Collection Type Unknown Urine Color Polina Urine Clarity Hazy Urine pH 5.0 Urine Specific [place] >=1.030 Urine Protein 30 mg/dl (NEG-TRACE) Urine Glucose (UA) Neg mg/dL (NEG) Urine Ketones (Stick) Neg mg/dL (NEG) Urine Blood Trace (NEG) Urine Nitrite Pos (NEG) Urine Bilirubin Neg (NEG) Urine Urobilinogen Dipstick 0.2 mg/dL (0.2 mg/dL) Urine Leukocyte Esterase Neg (NEG) Urine RBC 6-10 /HPF (0-2) Urine WBC 11-20 /HPF (0-4) Urine Squamous Epithelial Cells Many /LPF Urine Bacteria Mod /HPF (0-FEW) Urine Hyaline Casts Many /HPF Urine Mucus Marked /LPF Urine Opiates Screen Neg (NEG) Urine Methadone Screen Neg (NEG) Urine Barbiturates Neg (NEG) Urine Phencyclidine Screen Neg (NEG) Urine Amphetamine/Methamphetamine Neg (NEG) Urine Benzodiazepines Screen Pos (NEG) Urine Cocaine Screen Neg (NEG) Urine Cannabinoids Screen Neg (NEG) Urine Ethyl Alcohol Neg (NEG) Nasal Screen MRSA (PCR) Positive (Negative) Test 07/02/18 08:18 07/02/18 08:31 07/02/18 09:10 07/02/18 18:55 Lactate Dehydrogenase 154 U/L (81-234) Sodium Level 135 mmol/L (136-145) 133 mmol/L (136-145) Potassium Level 5.0 mmol/L (3.5-5.1) 4.3 mmol/L (3.5-5.1) Chloride Level 100 mmol/L (98-107) 101 mmol/L (98-107) Carbon Dioxide Level 21 mmol/L (21-32) 20 mmol/L (21-32) Anion Gap 14 (6-14) 12 (6-14) Blood Urea Nitrogen 36 mg/dL (7-20) 32 mg/dL (7-20) Creatinine 2.5 mg/dL (0.6-1.0) 2.0 mg/dL (0.6-1.0) Estimated GFR (Cockcroft-Gault) 18.3 23.7 Glucose Level 116 mg/dL (70-99) 114 mg/dL (70-99) Calcium Level 8.7 mg/dL (8.5-10.1) 7.9 mg/dL (8.5-10.1) Troponin I Quantitative < 0.017 ng/mL (0-0.055) White Blood Count 15.3 x10^3/uL (4.0-11.0) Red Blood Count 4.64 x10^6/uL (3.50-5.40) Hemoglobin 14.0 g/dL (12.0-15.5) Hematocrit 42.9 % (36.0-47.0) Mean Corpuscular Volume 93 fL (79-100) Mean Corpuscular Hemoglobin 30 pg (25-35) Mean Corpuscular Hemoglobin Concent 33 g/dL (31-37) Red Cell Distribution Width 13.7 % (11.5-14.5) Platelet Count 391 x10^3/uL (140-400) Neutrophils (%) (Auto) 83 % (31-73) Lymphocytes (%) (Auto) 8 % (24-48) Monocytes (%) (Auto) 8 % (0-9) Eosinophils (%) (Auto) 0 % (0-3) Basophils (%) (Auto) 1 % (0-3) Neutrophils # (Auto) 12.7 x10^3uL (1.8-7.7) Lymphocytes # (Auto) 1.3 x10^3/uL (1.0-4.8) Monocytes # (Auto) 1.2 x10^3/uL (0.0-1.1) Eosinophils # (Auto) 0.1 x10^3/uL (0.0-0.7) Basophils # (Auto) 0.1 x10^3/uL (0.0-0.2) Segmented Neutrophils % 80 % (35-66) Lymphocytes % 12 % (24-48) Monocytes % 6 % (0-10) Platelet Estimate Adequate (ADEQUATE) Lactic Acid Level 1.3 mmol/L (0.4-2.0) Test 07/03/18 06:26 White Blood Count 9.2 x10^3/uL (4.0-11.0) Red Blood Count 3.53 x10^6/uL (3.50-5.40) Hemoglobin 11.0 g/dL (12.0-15.5) Hematocrit 32.6 % (36.0-47.0) Mean Corpuscular Volume 93 fL (79-100) Mean Corpuscular Hemoglobin 31 pg (25-35) Mean Corpuscular Hemoglobin Concent 34 g/dL (31-37) Red Cell Distribution Width 12.9 % (11.5-14.5) Platelet Count 295 x10^3/uL (140-400) Neutrophils (%) (Auto) 77 % (31-73) Lymphocytes (%) (Auto) 10 % (24-48) Monocytes (%) (Auto) 11 % (0-9) Eosinophils (%) (Auto) 2 % (0-3) Basophils (%) (Auto) 1 % (0-3) Neutrophils # (Auto) 7.0 x10^3uL (1.8-7.7) Lymphocytes # (Auto) 0.9 x10^3/uL (1.0-4.8) Monocytes # (Auto) 1.0 x10^3/uL (0.0-1.1) Eosinophils # (Auto) 0.1 x10^3/uL (0.0-0.7) Basophils # (Auto) 0.1 x10^3/uL (0.0-0.2) Sodium Level 134 mmol/L (136-145) Potassium Level 3.6 mmol/L (3.5-5.1) Chloride Level 102 mmol/L (98-107) Carbon Dioxide Level 21 mmol/L (21-32) Anion Gap 11 (6-14) Blood Urea Nitrogen 26 mg/dL (7-20) Creatinine 1.4 mg/dL (0.6-1.0) Estimated GFR (Cockcroft-Gault) 35.7 Glucose Level 134 mg/dL (70-99) Calcium Level 7.9 mg/dL (8.5-10.1) Physical Exam: General: Sitting up in bed in no apparent distress HEENT: Normocephalic/atraumatic, oral mucosa is now moist Neck: Supple and nontender Pulmonary: Lungs are clear bilaterally with good breath sounds Cardiovascular: Irregular no murmur Abdomen: Appropriately tender with ileostomy and left lower quadrant, soft mildly distended Neuro: Left-sided hemiparesis, alert Psych: Alert and oriented 3 on my evaluation, mood is appropriate ASSESSMENT: Urinary tract infection Acute kidney injury Profound hypovolemia Encephalopathy: Improved Continue IV hydration with continued assessment to avoid overload Continue Cipro IV DC Bowman Follow morning labs and urine culture RIDGE ISSA DO Jul 03, 2018 12:10
[2018-07-03 16:10] VITALS: BP 153/75
[2018-07-03] MEDS: MUPIROCIN 2% TOPICAL OINTMENT 22GM TUBE. TP SCH (17:14)
--- NOTE | 2018-07-03 18:28 | PN ---
DATE: 07/03/2018 SUBJECTIVE: The patient denies any new medical or neurological complaints. OBJECTIVE: GENERAL: A well-developed, well-nourished female, not in acute distress. VITAL SIGNS: Blood pressure 124/73, respiratory rate 20, pulse is 83, temperature 98.3, oxygen saturation 97% on room air. HEENT: Normocephalic, atraumatic, otherwise unremarkable. NECK: Supple. Negative for carotid bruit, lymphadenopathy or thyromegaly. LUNGS: Clear to A and P. CARDIOVASCULAR: Regular rhythm, normal S1, S2. ABDOMEN: Soft. Bowel sounds positive. EXTREMITIES: Negative for cyanosis, clubbing or pitting edema. NEUROLOGICAL EXAMINATION: Mental Status: The patient is alert and oriented x 3. Speech is fluent. She recalls 2/3 immediately and 1/3 after 1 and 3 minutes. Judgment and abstracting thinking are fair. The patient denies hallucination or delusion. There is no facial motor or sensory deficit. Cranial nerves are grossly intact. Motor examination: No focal muscle bulk was seen. The tone is normal. The strength is -4/5 in the left upper and lower extremities consistent with a left hemiparesis due to previous stroke, with decreased range of motions of the left shoulder. Sensory examination revealed normal pinprick, light touch senses. Deep tendon reflexes were symmetric and hypoactive without pathology responses. Gait: The patient is unable to stand. LABORATORY DATA: CBC revealed white blood cells of 9200, hemoglobin 11, hematocrit 32.6, platelet count 295,000. Chemistry revealed a sodium of 134, potassium 3.6, chloride 102, CO2 21, BUN 26, creatinine 1.4, glucose 134, calcium 7.9. Echocardiogram revealed normal left ventricular systolic function with ejection fraction of 55. IMPRESSION: 1. Acute encephalopathy - improved. 2. Chronic renal insufficiency/failure - improved with hydration. 3. Dehydration. 4. Left hemiparesis due to old stroke. 5. Urinary tract infections. 6. Chronic atrial fibrillation. 7. Hypertension - controlled. RECOMMENDATIONS: Continue with the current management initiated by and home medications. M Randy PEDRO MD DR: NAEEM/tash JOB#: [id number] / [id number]
[2018-07-03 19:17] VITALS: BP 166/82
[2018-07-03 22:39] VITALS: BP 105/52
[2018-07-04 05:25] VITALS: BP 135/65
[2018-07-04] MEDS: METOPROLOL TART IMMED RELEASE 25 MG TABLET PO SCH ×3 (06:06→19:27)
[2018-07-04] MEDS: IV NORMAL SALINE 1,000ML 1,000 ML IV SCH ×2 (06:07→12:02)
[2018-07-04 06:58] LABS: ALBUMIN 2.1 g/dL (3.4-5.0); ALBUMIN/GLOBULIN RATIO 0.7 (1.0-1.7); CALCIUM 8.1 mg/dL (8.5-10.1); CREATININE 0.9 mg/dL (0.6-1.0); GFR 59.5; POTASSIUM 3.7 mmol/L (3.5-5.1); TOTAL BILIRUBIN 0.5 mg/dL (0.2-1.0); TOTAL PROTEIN 5.1 g/dL (6.4-8.2)
[2018-07-04] MEDS: MUPIROCIN 2% TOPICAL OINTMENT 22GM TUBE. TP SCH (09:56)
[2018-07-04] MEDS: LACTOBACILLUS RHAMNOSUS GG 1 CAPSULE. PO SCH ×2 (09:56→20:31)
[2018-07-04 11:04] VITALS: BP 162/53
[2018-07-04] MEDS: CIPROFLOXACIN 400MG PREMIX 200 ML IV SCH (12:08)
--- NOTE | 2018-07-04 13:25 | PN ---
DATE: 07/04/2018 SUBJECTIVE: The patient denies any new medical or neurological complaints. OBJECTIVE: GENERAL: Well-developed, well-nourished female in no acute distress. VITAL SIGNS: Blood pressure 162/53, respiratory rate 20, pulse is 79 regular, oxygen saturation 98% on room air and temperature 97.6. HEENT: Normocephalic, atraumatic, otherwise unremarkable. NECK: Supple. Negative for carotid bruit, lymphadenopathy or thyromegaly. LUNGS: Clear to A and P. CARDIOVASCULAR: Irregular rhythm, normal S1, S2. ABDOMEN: Soft. Bowel sounds positive. EXTREMITIES: Negative for cyanosis, clubbing, edema. NEUROLOGIC: Mental status: The patient is alert and oriented x 3. Speech is more fluent. There is no language dysfunction mainly. Judgment and abstract thinking are fair. The patient denies hallucination or delusion. Cranial nerves are grossly intact. Motor examination consistent with left hemiparesis, otherwise unchanged. Sensory examination reveals normal pinprick, light touch, vibratory and position senses. Deep tendon reflexes were asymmetric and hypoactive with absent Achilles responses. Gait not tested. IMPRESSION: 1. Acute encephalopathy -- improved. 2. Chronic atrial fibrillation. 3. Multiple medical problems include urinary tract infection may have contributed to recurrent encephalopathy, which has improved along with dehydration. 4. Left hemiparesis secondary to old stroke. 5. Hypertension. RECOMMENDATION: Continue with current management initiated by Dr. Diaz and physical therapy as tolerated. CLAUS SANTOS MD DR: JUANA/tash JOB#: [id number] / [id number]
[2018-07-04 15:00] VITALS: BP 127/54
--- NOTE | 2018-07-04 15:34 | PDOC ---
SUBJECTIVE: Patient reports that she continues to feel better. She has some itching burning and irritation under an anterior abdominal fold and aside from that denies any new complaints. She's had a few elevated blood pressure readings other than that her vitals have remained stable. No further episodes of rapid ventricular response. Her kidney function has normalized today with IV hydration her urine culture came back as mixed urogenital roseanna. OBJECTIVE: Problems: Problems Medical Problems: (1) Mental status change resolved Status: Acute Vital Signs: Vital Signs Date Time Temp Pulse Resp B/P (MAP) Pulse Ox O2 Delivery O2 Flow Rate FiO2 07/04/18 12:08 79 162/53 07/04/18 11:04 97.6 20 98 Room Air I & O Intake and Output 07/04/18 07:00 Intake Total 2977 ml Output Total 1225 ml Balance 1752 ml Intake Oral 1540 ml IV Total 1437 ml Output Urine Total 550 ml Stool Total 675 ml # Voids 6 Labs: Laboratory Tests Test 07/02/18 18:55 07/03/18 06:26 07/04/18 06:23 Sodium Level 133 mmol/L (136-145) 134 mmol/L (136-145) 141 mmol/L (136-145) Potassium Level 4.3 mmol/L (3.5-5.1) 3.6 mmol/L (3.5-5.1) 3.7 mmol/L (3.5-5.1) Chloride Level 101 mmol/L (98-107) 102 mmol/L (98-107) 107 mmol/L (98-107) Carbon Dioxide Level 20 mmol/L (21-32) 21 mmol/L (21-32) 25 mmol/L (21-32) Anion Gap 12 (6-14) 11 (6-14) 9 (6-14) Blood Urea Nitrogen 32 mg/dL (7-20) 26 mg/dL (7-20) 14 mg/dL (7-20) Creatinine 2.0 mg/dL (0.6-1.0) 1.4 mg/dL (0.6-1.0) 0.9 mg/dL (0.6-1.0) Estimated GFR (Cockcroft-Gault) 23.7 35.7 59.5 Glucose Level 114 mg/dL (70-99) 134 mg/dL (70-99) 85 mg/dL (70-99) Calcium Level 7.9 mg/dL (8.5-10.1) 7.9 mg/dL (8.5-10.1) 8.1 mg/dL (8.5-10.1) White Blood Count 9.2 x10^3/uL (4.0-11.0) Red Blood Count 3.53 x10^6/uL (3.50-5.40) Hemoglobin 11.0 g/dL (12.0-15.5) Hematocrit 32.6 % (36.0-47.0) Mean Corpuscular Volume 93 fL (79-100) Mean Corpuscular Hemoglobin 31 pg (25-35) Mean Corpuscular Hemoglobin Concent 34 g/dL (31-37) Red Cell Distribution Width 12.9 % (11.5-14.5) Platelet Count 295 x10^3/uL (140-400) Neutrophils (%) (Auto) 77 % (31-73) Lymphocytes (%) (Auto) 10 % (24-48) Monocytes (%) (Auto) 11 % (0-9) Eosinophils (%) (Auto) 2 % (0-3) Basophils (%) (Auto) 1 % (0-3) Neutrophils # (Auto) 7.0 x10^3uL (1.8-7.7) Lymphocytes # (Auto) 0.9 x10^3/uL (1.0-4.8) Monocytes # (Auto) 1.0 x10^3/uL (0.0-1.1) Eosinophils # (Auto) 0.1 x10^3/uL (0.0-0.7) Basophils # (Auto) 0.1 x10^3/uL (0.0-0.2) BUN/Creatinine Ratio 16 (6-20) Total Bilirubin 0.5 mg/dL (0.2-1.0) Aspartate Amino Transf (AST/SGOT) 13 U/L (15-37) Alanine Aminotransferase (ALT/SGPT) 15 U/L (14-59) Alkaline Phosphatase 64 U/L (46-116) Total Protein 5.1 g/dL (6.4-8.2) Albumin 2.1 g/dL (3.4-5.0) Albumin/Globulin Ratio 0.7 (1.0-1.7) Physical Exam: Gen.: Lying in bed resting comfortably with her son at bedside in no apparent distress HEENT: Normocephalic/atraumatic mucous membranes are moist and pink Neck: Supple and nontender Cardiovascular: Irregular no murmur Pulmonary: Lungs are clear bilaterally good air movement Abdomen: Soft and slightly distended, appropriately tender with ileostomy in the left lower quadrant bowel sounds are present Skin: Anterior abdominal fold with erythema no discharge or vesicles consistent with candidal skin infection ASSESSMENT: Metabolic encephalopathy: Improved A. fib with rapid ventricular response: Rate is controlled Urinary tract infection Acute kidney injury Profound dehydration Candidal skin infection Debilitated status PLAN: Discontinue IV fluids as renal function has normalized. Continue Cipro despite urine culture due to clinical findings. Nystatin powder to the irritated skin area Encourage steady and consistent by mouth intake of fluids. The patient persistently expresses desires to be discharged home. The patient cannot adequately stand and walk without assistance and her son fears she is too weak to go home at this point. She would likely benefit from swing bed admission, discuss options with case management tomorrow. RIDGE ISSA DO Jul 04, 2018 15:34
[2018-07-04 20:00] VITALS: BP 152/79
[2018-07-04] MEDS: NYSTATIN TOPICAL POWDER 15GM BOTTLE. TP SCH (20:50)
[2018-07-05 00:01] VITALS: BP 150/75
[2018-07-05] MEDS: CIPROFLOXACIN 400MG PREMIX 200 ML IV SCH ×2 (00:05→12:31)
[2018-07-05] MEDS: METOPROLOL TART IMMED RELEASE 25 MG TABLET PO SCH ×2 (00:06→05:43)
[2018-07-05 07:32] VITALS: BP 143/67
[2018-07-05] MEDS ORDERED: traMADol 50 MG TABLET PO PRN (08:15)
[2018-07-05] MEDS ORDERED: ALPRAZolam 0.5 MG TABLET PO PRN (08:15)
[2018-07-05] MEDS: LACTOBACILLUS RHAMNOSUS GG 1 CAPSULE. PO SCH (08:28)
[2018-07-05] MEDS: POTASSIUM CHLORIDE 20 MEQ TABLET.ER. PO SCH ×2 (08:28→12:32)
[2018-07-05] MEDS: NYSTATIN TOPICAL POWDER 15GM BOTTLE. TP SCH (08:31)
[2018-07-05] MEDS: MUPIROCIN 2% TOPICAL OINTMENT 22GM TUBE. TP SCH (08:31)
[2018-07-05] MEDS ORDERED: LISINOPRIL 20 MG TABLET PO SCH (09:00)
[2018-07-05] MEDS ORDERED: OMEGA-3 FATTY ACIDS/FISH OIL 1,000 MG CAPSULE. PO SCH (09:00)
[2018-07-05] MEDS ORDERED: APIXABAN 5 MG TABLET. PO SCH (09:00)
[2018-07-05] MEDS ORDERED: amLODIPine BESYLATE 10 MG TABLET PO SCH (09:00)
--- NOTE | 2018-07-05 09:15 | PDOC ---
PROGRESS NOTES Diagnosis Problem Problems Medical Problems: (1) Mental status change resolved Status: Acute Assessment Problems Medical Problems: (1) Mental status change resolved Status: Acute 1. Atrial fibrillation with rapid ventricular response: Rate controlled. Normal LV function by echo. Metoprolol for rate control changed to BID for compliance. On Eliquis for stroke prophylaxis. 2. Hypertension: mildly elevated pressures today. monitor and consider increase of metoprolol. 3. Urinary tract infection: per IM 4. Mental status changes probably secondary to UTI - per IM Subjective no chest pain, dyspnea or palpitations, "ready to go home" Objective Vital Signs Date Time Temp Pulse Resp B/P (MAP) Pulse Ox O2 Delivery O2 Flow Rate FiO2 07/05/18 08:28 94 07/05/18 08:00 Room Air 07/05/18 07:32 97.8 20 143/67 (92) 97 Intake and Output 07/05/18 07:00 Intake Total 1260 ml Output Total 425 ml Balance 835 ml Intake Oral 560 ml IV Total 700 ml Stool Total 425 ml # Voids 5 Abdomen: Normal bowel sounds, Soft, No tenderness Heart: Other (IRR, no gallops, clicks or rubs) Extremities: No edema General: Alert, Cooperative, No acute distress Lungs: Clear to auscultation Neuro: Normal speech Psych/Mental Status: Mood NL Review of Relevant I have reviewed the following items danielle (where applicable) has been applied. Labs Laboratory Tests Test 07/04/18 06:23 Sodium Level 141 mmol/L (136-145) Potassium Level 3.7 mmol/L (3.5-5.1) Chloride Level 107 mmol/L (98-107) Carbon Dioxide Level 25 mmol/L (21-32) Anion Gap 9 (6-14) Blood Urea Nitrogen 14 mg/dL (7-20) Creatinine 0.9 mg/dL (0.6-1.0) Estimated GFR (Cockcroft-Gault) 59.5 BUN/Creatinine Ratio 16 (6-20) Glucose Level 85 mg/dL (70-99) Calcium Level 8.1 mg/dL (8.5-10.1) Total Bilirubin 0.5 mg/dL (0.2-1.0) Aspartate Amino Transf (AST/SGOT) 13 U/L (15-37) Alanine Aminotransferase (ALT/SGPT) 15 U/L (14-59) Alkaline Phosphatase 64 U/L (46-116) Total Protein 5.1 g/dL (6.4-8.2) Albumin 2.1 g/dL (3.4-5.0) Albumin/Globulin Ratio 0.7 (1.0-1.7) Microbiology 07/02/18 Blood Culture - Preliminary, Resulted NO GROWTH AFTER 2 DAYS... 07/01/18 Urine Culture - Final, Complete 07/01/18 Urine Culture Result 1 ([facility]) - Final, Complete Medications Current Medications Magnesium Sulfate 50 ml @ 25 mls/hr 1X ONCE IV Last administered on 07/02/18at 00:26; Start 07/01/18 at 23:45; Stop 07/02/18 at 01:44; Status DC Ciprofloxacin (Cipro) 500 mg 1X ONCE PO Last administered on 07/02/18at 00:26; Start 07/01/18 at 23:45; Stop 07/01/18 at 23:46; Status DC Furosemide (Lasix) 20 mg 1X ONCE IVP Last administered on 07/02/18at 00:26; Start 07/01/18 at 23:45; Stop 07/01/18 at 23:46; Status DC Ondansetron HCl (Zofran) 4 mg PRN Q4HRS PRN IV NAUSEA/VOMITING Last administered on 07/02/18at 04:00; Start 07/01/18 at 23:15; Stop 07/02/18 at 23:14 ; Status DC Albuterol/ Ipratropium (Duoneb) 3 ml RTQID NEB ; Start 07/02/18 at 08:00; Stop 07/02/18 at 17:28; Status DC Ciprofloxacin (Cipro) 250 mg BID PO ; Start 07/02/18 at 09:00; Stop 07/02/18 at 11:57; Status DC Diltiazem HCl (Cardizem) 10 mg PRN 1X PRN IVP TACHYCARDIA Last administered on 07/02/18at 04:07; Start 07/01/18 at 23:15 Sodium Chloride 500 ml @ 500 mls/hr 1X ONCE IV Last administered on at 04:54; Start 07/02/18 at 05:00; Stop 07/02/18 at 06:00; Status DC Sodium Chloride 1,000 ml @ 150 mls/hr Q6H40M IV Last administered on 12:02; Start 07/02/18 at 06:00; Stop 07/04/18 at 14:44; Status DC Metoclopramide HCl (Reglan Vial) 5 mg PRN Q6HRS PRN IV NAUSEA/VOMITING Last administered on 07/02/18at 04:57; Start 07/02/18 at 04:45 Albuterol/ Ipratropium (Duoneb) 3 ml STK-MED ONCE .ROUTE ; Start 07/02/18 at 05: 25; Stop 07/02/18 at 05:26; Status DC Sodium Chloride 500 ml @ 0 mls/hr 1X ONCE IV Last administered on 07/02/18at 08 :15; Start 07/02/18 at 08:00; Stop 07/02/18 at 08:01; Status DC Lactobacillus Rhamnosus (Culturelle) 1 cap BID PO Last administered on 08:28; Start 07/02/18 at 21:00 Ciprofloxacin Lactate 200 ml @ 200 mls/hr Q18H IV Last administered on at 23:53; Start 07/02/18 at 12:00; Stop 07/04/18 at 08:27; Status DC Sodium Chloride 1,000 ml @ 1,000 mls/hr 1X ONCE IV Last administered on at 12:12; Start 07/02/18 at 12:00; Stop 07/02/18 at 12:59; Status DC Metoprolol Tartrate (Lopressor) 25 mg Q6HRS PO Last administered on 07/05/18at 05:43; Start 07/02/18 at 13:00 Mupirocin (Bactroban) 1 alpesh DAILY TP Last administered on 07/05/18at 08:31; Start 07/03/18 at 13:00 Ciprofloxacin Lactate 200 ml @ 200 mls/hr Q12H IV Last administered on at 00:05; Start 07/04/18 at 12:00 Nystatin (Nystop) 1 alpesh BID TP Last administered on 07/05/18at 08:31; Start at 21:00 Lisinopril (Prinivil) 20 mg BID PO Last administered on 07/05/18at 08:28; Start 07/05/18 at 09:00 Fish Oil (Fish Oil) 1,000 mg DAILY PO Last administered on 07/05/18at 08:28; Start 07/05/18 at 09:00 Potassium Chloride (Klor-Con) 20 meq TID PO Last administered on 07/05/18at 08: 28; Start 07/05/18 at 09:00 Tramadol HCl (Ultram) 50 mg PRN Q6HRS PRN PO PAIN; Start 07/05/18 at 08:15 Alprazolam (Xanax) 0.5 mg PRN QHS PRN PO ANXIETY / AGITATION; Start 07/05/18 at 08:15 Amlodipine Besylate (Norvasc) 10 mg DAILY PO Last administered on 07/05/18at 08: 27; Start 07/05/18 at 09:00 Apixaban (Eliquis) 5 mg BID PO Last administered on 07/05/18at 08:28; Start at 09:00 Active Scripts Active Reported Tramadol Hcl (Tramadol HCl) 50 Mg Tablet 50 Mg PO PRN Q6HRS PRN Amlodipine Besylate 2.5 Mg Tablet 10 Mg PO DAILY Klor-Con M20 (Potassium Chloride) 20 Meq Tab.er.prt 1 Tab PO TID Eliquis (Apixaban) 5 Mg Tablet 5 Mg PO BID Carvedilol 25 Mg Tablet 12.5 Mg PO BIDWMEALS Xopenex (Levalbuterol Hcl) 1.25 Mg/3 Ml Vial.neb 1.25 Mg IH BID for shortness of breath last dose: next dose: Fish Oil 1,000 Mg Capsule ([place]-3 Fatty Acids/Fish Oil) 1 Each Capsule 1 Each PO DAILY supplement last dose: 12/11 @ 8:16 AM next dose: 12/12 AM Alprazolam 0.5 Mg Tablet 0.5 Mg PO HS PRN for anxiety Lisinopril 20 Mg Tablet 20 Mg PO BID for high blood pressure last dose: 12/11 @ 8:16 AM next dose: 12/11 PM Vitals/I & O Vital Sign - Last 24 Hours 07/04/18 07/04/18 07/04/18 07/04/18 11:04 12:08 15:00 19:27 Temp 97.6 97.7 Pulse 79 79 112 112 Resp 20 B/P (MAP) 162/53 (89) 162/53 127/54 (78) 127/54 Pulse Ox 98 95 O2 Delivery Room Air Room Air 07/04/18 07/04/18 07/05/18 07/05/18 20:00 20:00 00:01 00:06 Temp 98.6 Pulse 92 86 92 Resp 22 20 B/P (MAP) 152/79 (103) 150/75 (100) 152/79 Pulse Ox 93 97 O2 Delivery Room Air Room Air Room Air 07/05/18 07/05/18 07/05/18 07/05/18 05:43 07:32 08:00 08:27 Temp 97.8 Pulse 92 74 94 Resp 20 B/P (MAP) 152/79 143/67 (92) Pulse Ox 97 O2 Delivery Room Air Room Air 07/05/18 08:28 Pulse 94 Intake and Output 07/04/18 07/04/18 07/05/18 15:00 23:00 07:00 Intake Total 560 ml 500 ml 200 ml Output Total 125 ml 225 ml 75 ml Balance 435 ml 275 ml 125 ml BRIDGET CHE APRN Jul 05, 2018 09:15
--- NOTE | 2018-07-05 09:57 | PN ---
DATE: 07/04/2018 SUBJECTIVE: The patient denies any new medical or neurological complaints. OBJECTIVE: GENERAL: Well-developed, well-nourished female in no acute distress. VITAL SIGNS: Blood pressure 162/53, respiratory rate 20, pulse is 79 regular, oxygen saturation 98% on room air and temperature 97.6. HEENT: Normocephalic, atraumatic, otherwise unremarkable. NECK: Supple. Negative for carotid bruit, lymphadenopathy or thyromegaly. LUNGS: Clear to A and P. CARDIOVASCULAR: Irregular rhythm, normal S1, S2. ABDOMEN: Soft. Bowel sounds positive. EXTREMITIES: Negative for cyanosis, clubbing, edema. NEUROLOGIC: Mental status: The patient is alert and oriented x 3. Speech is more fluent. There is no language dysfunction mainly. Judgment and abstract thinking are fair. The patient denies hallucination or delusion. Cranial nerves are grossly intact. Motor examination consistent with left hemiparesis, otherwise unchanged. Sensory examination reveals normal pinprick, light touch, vibratory and position senses. Deep tendon reflexes were asymmetric and hypoactive with absent Achilles responses. Gait not tested. IMPRESSION: 1. Acute encephalopathy -- improved. 2. Chronic atrial fibrillation. 3. Multiple medical problems include urinary tract infection may have contributed to recurrent encephalopathy, which has improved along with dehydration. 4. Left hemiparesis secondary to old stroke. 5. Hypertension. RECOMMENDATION: Continue with current management initiated by Dr. Diaz and physical therapy as tolerated. M Randy PEDRO MD DR: NAEEM/tash JOB#: [id number] / [id number]
[2018-07-05 11:16] VITALS: BP 164/69
--- NOTE | 2018-07-05 11:57 | DS ---
DATE OF DISCHARGE: 07/05/2018 HISTORY OF PRESENT ILLNESS: The patient is an 83-year-old female patient who came to the Emergency Department with complaint of confusion, difficulty with speech and weakness. She was discharged from [facility] after undergoing a subtotal colectomy, ileostomy, and Meckel's diverticulectomy at [facility]. In the Emergency Room, the patient was found to be in atrial fibrillation with rapid ventricular response. Her rate was controlled with 1 bolus of IV Cardizem intravenously. EKG showed atrial fibrillation with a rate of 111 beats per minute with occasional PVCs. Her chest x-ray was negative for acute cardiopulmonary process. CT scan without contrast stable from prior exam with microvascular ischemic disease. However, her kidney function has dramatically risen from a baseline of 0.9 to 2.5 and urinalysis showed that she has bacteriuria and leukocyturia. Her most recent urine culture grew Escherichia coli sensitive to Cipro. She did have a CT scan of the abdomen and pelvis, which showed no evidence of bowel obstruction. The patient was given a bolus of IV fluid, continued the IV antibiotics, and her medications were resumed and she was seen in consultation by the Cardiology, who were concerned about apixaban. She was also seen by Dr. Duke, the neurologist, and basically she was diagnosed with acute encephalopathy, probably multifactorial including urinary tract infection, dehydration, acute renal failure. The patient's kidney function has steadily improved. In fact, her BUN came down from 33 to 14 and her creatinine came down from 2.5 to 0.9 mg/dL. Her urine culture showed growth of more than 100,000 colony-forming units per mL of gram-negative. The identification and sensitivity still pending at the time of this dictation. As the patient continued to be debilitated and weak, it was felt that the patient will benefit from extended period of rehabilitation at a longterm facility as she tried rehab for a short period of time and was inpatient to go home and basically failed and came back with acute kidney injury. PHYSICAL EXAMINATION: GENERAL: When I examined her today, she was sitting comfortably in her chair in no apparent distress. She was definitely more awake, alert, lucid, but denied that there was no pallor, jaundice, cyanosis, or thyromegaly. No jugular venous distention or limb edema. VITAL SIGNS: Her heart rate was 74, blood pressure 143/67, temperature was 97.8, respiratory rate was 20, and oxygen saturation was 97%. HEAD, EYES, EARS, NOSE AND THROAT: Showed normocephalic, atraumatic. NECK: Supple. HEART: Showed normal first and second heart sounds with no gallop, rub, or murmur. CHEST: Clear to auscultation. No crepitation or rhonchi. ABDOMEN: Distended, soft, nontender. No guarding or rigidity. No organomegaly. All hernial orifices intact. EXTREMITIES: She has a midline surgical incision, healed nicely. She has a colostomy bag in the left lower quadrant. NEUROLOGIC: She is awake, alert. All her cranial nerves intact. She has left-sided hemiplegia. She is mostly bedbound, chair bound. Her intake over the last 24 hours was 2977, output was 1225. LABORATORY DATA: Her lab work as of yesterday showed a serum sodium 141, potassium 3.7, chloride 107, bicarbonate 25, anion gap of 9, BUN 14, creatinine 0.9, estimated GFR was 69 mL/minute. Her glucose was 85, calcium was 8.1. Total bilirubin, AST, ALT, alkaline phosphatase were normal. Total protein was 5.1, albumin was 2.1. White cell count was 9200, hemoglobin 11, hematocrit 33, MCV 93, and platelet count 296,000. Her prothrombin time was 11.1, INR 1.1, aPTT was 24. DISCHARGE MEDICATIONS: The patient will be discharged home to continue on metoprolol 25 mg p.o. b.i.d., apixaban 5 mg twice a day, amlodipine 10 mg once a day, potassium chloride 20 mEq 3 times a day, fish oil 1000 mg once a day, lisinopril 20 mg twice a day, alprazolam 0.5 mg at bedtime, tramadol 50 mg every 6 hours, nystatin powder apply topically twice a day, Bactroban ointment apply topically twice a day, lactobacillus rhamnosus 1 capsule twice a day, metoclopramide 5 mg every 6 hours. She was also discharged on ciprofloxacin 250 mg p.o. b.i.d. for 5 more days. FINAL DISCHARGE DIAGNOSES: Altered mental status, multifactorial, resolved. Acute kidney injury, resolved. Her creatinine is down to 0.9 mg/dL. Atrial fibrillation with rapid ventricular response, rate controlled. We will anticoagulate with apixaban and debility and deconditioning. The patient is status post subtotal colectomy, ileostomy, and diverticulectomy. The patient will be discharged to [place] to continue the process of rehabilitation before ultimately she can go home. KENTRELL SHAFFER MD DR: RAFFI/tash JOB#: [id number] / [id number]
--- NOTE | 2018-07-05 12:07 | PN ---
DATE: SUBJECTIVE: The patient denies any new medical or neurological complaints. OBJECTIVE: GENERAL: Well-developed, well-nourished female, not in acute distress. VITAL SIGNS: Blood pressure 146/67, respiratory rate 20, pulse is 94 and regular. ABDOMEN: Soft. Bowel sounds positive. EXTREMITIES: Negative for cyanosis, clubbing, or pitting edema. NEUROLOGICAL EXAM: Mental Status: The patient is alert and oriented x 3. Speech is fluent. There is no language dysfunction. Memory, judgment, and abstract thinkings are fair. The patient denies hallucination or delusion. Cranial nerves are grossly intact. No focal muscle bulk was seen. The patient had left hemiparesis secondary to previous stroke. The strength also was 4/5 throughout. Sensory examination revealed normal pinprick and light touch senses. Deep tendon reflexes were symmetric and hypoactive with absent Achilles responses. Gait not tested. IMPRESSION: 1. Acute encephalopathy - resolved. 2. Urinary tract infections and dehydration may have contributed to the current symptoms. 3. Status post colectomy and colostomy. 4. Chronic atrial fibrillations with moderate ventricular response. 5. Hypertension. RECOMMENDATIONS: Continue with current management and medications. Regarding the history of stroke, the patient has had high risk of recurrent stroke because of atrial fibrillation. Therefore, she needs Physical Therapy evaluation. If the patient is not able to walk and only use walker for transfer and confined to a wheelchair, therefore, anticoagulant as Eliquis is probably indicated to prevent her stroke recurrence. M Randy PEDRO MD DR: NAEEM/tash JOB#: [id number] / [id number]
[2018-07-05] MEDS ORDERED: METOPROLOL TART IMMED RELEASE 25 MG TABLET PO SCH (21:00)
== END 2018-07-05 14:20 | DRG 871 ==
LOC: ER 21:25 → 1 SOUTH 23:55
PROVIDERS: ADMIT Internal Medicine; ATTEND Internal Medicine
DX: A41.9 Sepsis, unspecified organism (principal); G93.41 Metabolic encephalopathy; N17.9 Acute kidney failure, unspecified; N39.0 Urinary tract infection, site not specified; I69.354 Hemiplegia and hemiparesis following cerebral infarction affecting left non-dominant side; E86.1 Hypovolemia; F41.9 Anxiety disorder, unspecified; M19.90 Unspecified osteoarthritis, unspecified site; B37.2 Candidiasis of skin and nail; E78.5 Hyperlipidemia, unspecified; E86.0 Dehydration; I49.3 Ventricular premature depolarization; I12.9 Hypertensive chronic kidney disease with stage 1 through stage 4 chronic kidney disease, or unspecified chronic kidney disease; I48.2 Chronic atrial fibrillation; N18.9 Chronic kidney disease, unspecified; Z83.3 Family history of diabetes mellitus; Z82.49 Family history of ischemic heart disease and other diseases of the circulatory system; Z90.710 Acquired absence of both cervix and uterus; Z90.49 Acquired absence of other specified parts of digestive tract; Z93.3 Colostomy status; Z93.2 Ileostomy status; Z98.42 Cataract extraction status, left eye; Z98.41 Cataract extraction status, right eye; Z90.722 Acquired absence of ovaries, bilateral; Z82.3 Family history of stroke; Z88.1 Allergy status to other antibiotic agents; Z88.5 Allergy status to narcotic agent; Z88.0 Allergy status to penicillin; Z88.8 Allergy status to other drugs, medicaments and biological substances
CPT/HCPCS: 36415; 70450; 71045; 74176; 80048; 80053; 80307; 81001; 82553; 83605; 83615; 83735; 83880; 84484; 85007; 85025; 85610; 85730; 87040; 87086; 87641; 93005; 93306; 94640; 96365; 96375; G0238; J0744; J1940; J2405; J2765; J3475; J3490; J7040; J7620; 92610; 97110; 97530; 97535; 99285-25; G0479; J7030

== ENCOUNTER 2018-07-14 13:05 | Inpatient (IN) | payer MEDICARE, OTHER ==
[~2018-07-14] VITALS: Ht 152.4 cm; Wt 65.3 kg
[~2018-07-14 13:05] MED LIST changes: -AMLO10TA2 PO; +AMLO10TA6 PO; -AMLO2.5T PO; +AMLO2.5T3 PO
[2018-07-14 15:32] VITALS: BP 138/64
[2018-07-14] MEDS ORDERED: COLE1TAB PO (16:41)
[2018-07-14] MEDS ORDERED: OXYC5CAP PO (16:41)
[2018-07-14] MEDS ORDERED: MAGN400T3 PO (16:41)
[2018-07-14] MEDS ORDERED: oxyCODONE IR 5 MG TABLET PO PRN (17:00)
[2018-07-14] MEDS: CARVEDILOL 12.5 MG TABLET PO SCH (17:40)
[2018-07-14] MEDS: COLESTIPOL HCL 1 GM TABLET PO SCH (18:00)
[2018-07-14 19:10] VITALS: BP 99/52
[2018-07-14] MEDS: APIXABAN 5 MG TABLET. PO SCH (20:53)
[2018-07-14] MEDS: MAGNESIUM OXIDE 400 MG TABLET PO SCH (20:53)
[2018-07-15 05:27] VITALS: BP 125/76
[2018-07-15 06:08] LABS: HEMATOCRIT 36.8 % (36.0-47.0); HEMOGLOBIN 12.1 g/dL (12.0-15.5); RED CELL DISTRIBUTION WIDTH 13.5 % (11.5-14.5); WHITE BLOOD COUNT 7.3 x10^3/uL (4.0-11.0)
[2018-07-15 06:17] LABS: CALCIUM 8.6 mg/dL (8.5-10.1); GFR 52.7; MAGNESIUM 1.7 mg/dL (1.8-2.4); POTASSIUM 3.5 mmol/L (3.5-5.1)
[2018-07-15] MEDS: CARVEDILOL 12.5 MG TABLET PO SCH ×2 (08:43→17:49)
[2018-07-15] MEDS: COLESTIPOL HCL 1 GM TABLET PO SCH ×2 (08:44→17:49)
[2018-07-15] MEDS: APIXABAN 5 MG TABLET. PO SCH ×2 (08:44→20:21)
[2018-07-15] MEDS: amLODIPine BESYLATE 10 MG TABLET PO SCH (08:44)
[2018-07-15] MEDS: MAGNESIUM OXIDE 400 MG TABLET PO SCH ×3 (08:44→20:21)
--- NOTE | 2018-07-15 15:03 | HP ---
ADMIT DATE: 07/14/2018 HISTORY OF PRESENT ILLNESS: The patient is an 83-year-old female patient who was at [facility] and was admitted to [facility] with severe pain due to marked excoriation of the skin around her stoma bag and also possible dehiscence of the skin around her colostomy and initial evaluation showed that she was in acute kidney injury with hyponatremia and hyperkalemia. In fact, her potassium was 7.5. The patient was seen in consultation by the surgical team and transpired that there was no dehiscence, but it was the site of [place] that should have been only covered with dressing. However, she has high ileostomy output and we treated her with aggressive IV fluid also Kayexalate and lactulose to lower down her potassium and her kidney function has steadily improved from a creatinine of 2.4 down to a creatinine of 0.9. Her potassium came down from 7.5 to 3.9 and a decision was made to transfer her to a swing bed in [facility] as she refused to go back to [place] with a plan for more training for her son and also more physical and occupational therapy before she can go home. When I saw her today, she looked well and was clearly in no apparent distress. On questioning her, she denied any pain around her colostomy. Denied any leakage around her colostomy bag as we did start her on colestipol 2 grams twice a day to reduce the ileostomy output as recommended by the fitter mechanic. PAST MEDICAL HISTORY: Significant for hypertension, atrial fibrillation. She is also known to have osteoarthritis as well as hyperlipidemia and right middle cerebral artery territory infarct with left-sided hemiplegia about 15 years ago. She is mostly in a power chair, although she can use a walker to transfer. PAST SURGICAL HISTORY: Significant for total abdominal hysterectomy, bilateral salpingo-oophorectomy, cholecystectomy, bilateral cataract extraction, colonoscopy, esophagogastroduodenoscopy and she also had section. Most recently, she underwent right rigid proctoscopy, subtotal colectomy, and end ileostomy and Meckel's diverticulectomy. FAMILY HISTORY: She has 3 brothers and 5 sisters. Older brother of myocardial infarction and CVA and 4 sisters, all of them of complication of diabetes, coronary artery disease, and cerebrovascular accident. She has 1 older sister that is still alive at the age of 90 and 1 younger brother at the age of 77 who is still alive. Her mother at the age of 84 because of pneumonia and CVA. Her father committed suicide at the age of 52. SOCIAL HISTORY: She is , lives with her son. One of her sons of diabetes and cerebral aneurysm. She has never smoked, does not drink alcohol. ALLERGIES: She is allergic to PENICILLIN, ACETAMINOPHEN, ALBUTEROL, AMPICILLIN, AZITHROMYCIN, CETIRIZINE, CODEINE, and DIPHENHYDRAMINE. MEDICATIONS: She was transferred from the [facility] to continue on following medications: She is on apixaban 5 mg p.o. b.i.d., colestipol 2 grams twice a day, carvedilol 12.5 mg twice a day, amlodipine 10 mg once a day, oxycodone 5 mg every 6 hours as needed, and magnesium oxide 400 mg 3 times a day. REVIEW OF SYSTEMS: As per history of present illness. PHYSICAL EXAMINATION GENERAL: When I examined her today, she was sitting comfortably in her power chair, in no apparent distress. She was pale. No jaundice, cyanosis, or thyromegaly. No jugular venous distention. No lower limb edema. VITAL SIGNS: Her heart rate was 87, blood pressure was 125/76, temperature was 97.9, respiratory rate 20, and oxygen saturation was 97%. HEAD, EYES, EARS, NOSE, AND THROAT: Showed normocephalic, atraumatic. NECK: Supple. HEART: Showed normal first and second heart sounds with no gallop, rub, or murmur. CHEST: Clear to auscultation. No crepitation or rhonchi. ABDOMEN: Distended, soft with a midline surgical incision healed nicely with no redness, tenderness, or discharge. She has an ileostomy in the left lower quadrant. There is no tenderness. No guarding or rigidity. No organomegaly. All hernial orifices intact. Bowel sounds normal. NEUROLOGIC: She is awake, alert, responding appropriately. All cranial nerves intact. She has left-sided hemiplegia. She is mostly bed bound, wheelchair bound. LABORATORY DATA: Her lab work this morning showed a white cell count of 7300, hemoglobin 12, hematocrit 36, MCV 92, and platelet count of 271,000. Her chemistry showed a serum sodium of 143, potassium 3.5, chloride 107, bicarbonate 29, anion gap of 7, BUN 11, creatinine 1, estimated GFR was 53 mL per minute. Her glucose was 90, calcium was 8.6, magnesium was 1.7. SUMMARY: In summary, this is an 83-year-old female patient who was admitted recently to [facility] with: 1. High output ileostomy with excessive leakage and marked excoriation of the skin around the ileostomy. 2. Acute kidney injury with a creatinine of 2.5 and hyperkalemia with a potassium of 7.5 and hyponatremia. She has a history of subtotal colectomy and ileostomy and Meckel's diverticulectomy, atrial fibrillation, rate controlled on metoprolol and apixaban, hypertension, right middle cerebral artery territory infarct with left-sided hemiplegia. PLAN: To continue with physical and occupational therapy. Continue to monitor her electrolytes and kidney function and replenish him as needed. Her potassium is borderline at 3.5. The magnesium is also within acceptable range. She is now on magnesium oxide 400 mg 3 times a day. I will put her also on potassium 20 mEq once a day and we will monitor her closely to make sure that she does not develop another episode of hyperkalemia and acute renal failure. KENTRELL SHAFFER MD DR: RAFFI/tash JOB#: [id number] / [id number]
[2018-07-15 16:03] VITALS: BP 138/65
[2018-07-16 03:30] VITALS: BP 128/65
--- NOTE | 2018-07-16 04:10 | RAD ---
PQRS Compliance Statement: One or more of the following individualized dose reduction techniques were utilized for this examination: 1. Automated exposure control 2. Adjustment of the mA and/or kV according to patient size 3. Use of iterative reconstruction technique CT HEAD WITHOUT CONTRAST History: Altered mental status, confusion, slurred speech. Hx: CVA . Code stroke. Comparison: CT head without contrast, July 01, 2018. Technique: Axial images are obtained of the head from the skull base through the vertex without IV contrast. Findings: No mass-effect, midline shift, extra-axial fluid collection, hemorrhage, or obvious acute infarction is identified. Basilar cisterns are patent. The ventricles and sulci are prominent, consistent with age-related cerebral atrophy. There is periventricular white matter hypoattenuation. This is a nonspecific finding but is commonly due to chronic small vessel ischemic disease. Bone windows demonstrate no acute calvarial abnormality. The visualized paranasal sinuses are clear. Mastoid air cells are well aerated. IMPRESSION: 1. No acute intracranial abnormality. 2. Age-related cerebral atrophy and periventricular white matter changes of chronic small vessel ischemic disease. Findings discussed with patient's nurse at 07/16/2018 4:06 AM. FOR INTERNAL CODING PURPOSES Critical result: RESULT CODE: (C) Electronically signed by: Demetri Laboy MD (07/16/2018 4:07 AM) [facility]
[2018-07-16 05:37] VITALS: BP 139/83
[2018-07-16] MEDS: CARVEDILOL 12.5 MG TABLET PO SCH ×2 (08:06→17:28)
[2018-07-16] MEDS: MAGNESIUM OXIDE 400 MG TABLET PO SCH ×3 (08:06→20:01)
[2018-07-16] MEDS: APIXABAN 5 MG TABLET. PO SCH ×2 (08:06→20:01)
[2018-07-16] MEDS: amLODIPine BESYLATE 10 MG TABLET PO SCH (08:06)
[2018-07-16] MEDS: POTASSIUM CHLORIDE 20 MEQ TABLET.ER. PO SCH (08:06)
[2018-07-16] MEDS: COLESTIPOL HCL 1 GM TABLET PO SCH ×2 (08:07→17:27)
[2018-07-16] MEDS ORDERED: METHYL SALICYLATE/MENTHOL TOPICAL OINTMENT 29GM TUBE. TP PRN (11:15)
--- NOTE | 2018-07-16 12:43 | RAD ---
EXAM: Carotid Doppler sonogram. HISTORY: Mental status changes. TECHNIQUE: Vásquez scale and color Doppler sonographic evaluation of the neck with spectral waveform analysis was performed and static images are submitted for review. FINDINGS: There is moderate calcified atherosclerotic plaque within the carotid bulbs and proximal internal and external carotid arteries. The peak systolic velocity within the right common carotid artery is 64 cm/sec. The peak systolic velocity within the right internal carotid artery is 107 cm/sec and the end diastolic velocity within the right internal carotid artery is 32 cm/sec. The right ICA/CCA ratio is 2.05. The peak systolic velocity within the left common carotid artery is 60 cm/sec. The peak systolic velocity within the left internal carotid artery is 61 cm/sec and the end diastolic velocity within the left internal carotid artery is 60 cm/sec. The left ICA/CCA ratio is 1.42. There is normal antegrade flow within both vertebral arteries. IMPRESSION: 1. Moderate atherosclerotic plaque within the carotid bifurcations. 2. Mildly elevated right ICA to CCA velocity ratio. This can be seen with 50-69% stenosis. However, the peak systolic velocities within the right internal carotid artery suggests less than 50% stenosis. 3. No evidence of hemodynamically significant stenosis within the left internal carotid artery or bilateral vertebral arteries. PQRS Compliance Statement - Stenosis calculations for CT, MR and conventional angiography are based upon measurement of the distal ICA diameter in accordance with the NASCET methodology. Stenosis calculations for carotid ultrasound studies are derived from validated velocity criteria which are known to correlate with the NASCET methodology. Electronically signed by: Edilma Eric MD (07/16/2018 12:39 PM) [facility]
[2018-07-16 17:50] VITALS: BP 108/58
[2018-07-17 05:26] VITALS: BP 128/59
[2018-07-17] MEDS: MAGNESIUM OXIDE 400 MG TABLET PO SCH ×3 (08:43→21:14)
[2018-07-17] MEDS: amLODIPine BESYLATE 10 MG TABLET PO SCH (08:44)
[2018-07-17] MEDS: APIXABAN 5 MG TABLET. PO SCH ×2 (08:44→21:14)
[2018-07-17] MEDS: POTASSIUM CHLORIDE 20 MEQ TABLET.ER. PO SCH (08:44)
[2018-07-17] MEDS: CARVEDILOL 12.5 MG TABLET PO SCH ×2 (08:45→16:54)
[2018-07-17] MEDS: COLESTIPOL HCL 1 GM TABLET PO SCH ×2 (08:45→16:55)
[2018-07-17 19:30] VITALS: BP 139/62
[2018-07-18 05:19] VITALS: BP 119/71
[2018-07-18] MEDS: APIXABAN 5 MG TABLET. PO SCH (09:35)
[2018-07-18 09:36] VITALS: BP 119/71
[2018-07-18] MEDS: POTASSIUM CHLORIDE 20 MEQ TABLET.ER. PO SCH (09:36)
[2018-07-18] MEDS: MAGNESIUM OXIDE 400 MG TABLET PO SCH (09:36)
[2018-07-18] MEDS: amLODIPine BESYLATE 10 MG TABLET PO SCH (09:36)
[2018-07-18] MEDS: CARVEDILOL 12.5 MG TABLET PO SCH (09:36)
[2018-07-18] MEDS: COLESTIPOL HCL 1 GM TABLET PO SCH (09:36)
--- NOTE | 2018-07-18 11:37 | DS ---
DATE OF DISCHARGE: 07/18/2018 HOSPITAL COURSE: The patient is an 83-year-old female patient who was admitted as a transfer from [facility] to swing bed. She has problems with high output ileostomy, dehydration, acute renal failure, hyperkalemia and hypomagnesemia and also recurrent leakage around her colostomy and it was felt that the patient would benefit from admission to swing bed for further rehabilitation and has been doing well. She did have an episode of altered mental status for which she was seen by Dr. Duke, with slurring of speech and we did actually order a CT scan of the head, which basically showed that there is no mass effect, midline shift, extra-axial fluid collection, hemorrhage or obvious acute infarction identified. Basal cisterns are patent. The ventricles and sulci are prominent consistent with age-related cerebral atrophy. There is periventricular white matter hypoattenuation. This is a nonspecific finding, but is commonly due to chronic small vessel ischemic disease. She has bone windows that demonstrate no acute calvarial abnormality. The visualized paranasal sinuses are clear. Mastoid air cells are well aerated. She had had also a carotid Doppler ultrasound, which basically showed that the patient has moderate atherosclerotic plaquing within the carotid bifurcation. She has mild elevated right internal carotid artery to common carotid artery velocity ratio. This can be seen with a 50-69% stenosis; however, the peak systolic velocities within the right internal carotid artery suggest less than 50% stenosis. No evidence of hemodynamically significant stenosis within the left internal carotid artery or bilateral vertebral arteries. The patient is already on apixaban and she did well after that and apparently, last night that she became more and more confused, had more slurring of her speech and became weaker and now requires 2-person assist to transfer her from her bed to her wheelchair and vice versa. Therefore, we decided to discharge her from the swing bed and admit her to acute care to evaluate her further. PHYSICAL EXAMINATION: GENERAL: When I saw her today, she was sitting comfortably in her power wheelchair, in no apparent distress. She was pale, but no jaundice, cyanosis, lymphadenopathy or thyromegaly. No jugular venous distension. No limb edema. VITAL SIGNS: His heart rate was 86, blood pressure was 119/71, temperature was 98, respiratory rate was 20, and oxygen saturation was 96%. HEAD, EYES, EARS, NOSE AND THROAT: Normocephalic, atraumatic. NECK: Supple. HEART: Showed normal first and second heart sounds with no gallop, rub or murmur. CHEST: Clear to auscultation. No crepitation or rhonchi. ABDOMEN: Distended, soft. The midline surgical incision is healing nicely. She has a colostomy in the left lower quadrant. There is no tenderness. No guarding or rigidity. No organomegaly. Hernial orifice intact. Bowel sounds normal. NEUROLOGIC: She is awake, alert, responding appropriately. She has difficulty finding words and apparently, she is much weaker and requires 2-person assist. She is known to have left-sided hemiplegia, has always been bed bound, wheelchair bound. She moves around with her power wheelchair. Her intake over the last 24 hours was 1265, output was 1150. LABORATORY DATA: On admission showed a white cell count of 7300, hemoglobin 12, hematocrit 36, MCV 92, and platelet count of 271,000. Her chemistry showed a serum sodium 143, potassium 3.5, chloride 107, bicarbonate 29, anion gap of 7, BUN 11, creatinine 1, estimated GFR was 52 mL per minute. Her glucose was 90, calcium was 8.6, magnesium was 1.7. DISCHARGE MEDICATIONS: She was admitted to acute care status on potassium chloride 20 mEq once a day, amlodipine 10 mg once a day, magnesium oxide 400 mg 3 times a day, apixaban 5 mg twice a day, colestipol 2 grams twice a day, oxycodone 5 mg every 6 hours, and carvedilol 12.5 mg twice a day. FINAL DISCHARGE DIAGNOSES: Probably recurrent TIAs, hypertension, atrial fibrillation, osteoarthritis, hyperlipidemia, right middle cerebral artery territory infarct, left-sided hemiplegia about 15 years ago. PLAN: We will admit her to a telemetry bed, start her on aspirin and check her fasting lipid profile and also an echocardiogram. KENTRELL SHAFFER MD DR: RAFFI/tash JOB#: [id number] / [id number]
--- NOTE | 2018-07-21 03:05 | PN ---
DATE: 07/18/2018 SUBJECTIVE: I was called to see the patient because of recurrent slurred speech and possible expressive aphasia. The patient is confined to wheelchair. She denies any new medical or neurological complaints. She denies headaches, visual disturbances, nausea, vomiting, chest pain, shortness of breath, or palpitation. Initial 12-lead EKG revealed atrial fibrillation and head CT scan and carotid Doppler study were performed and as mentioned above before. The patient was seen by Dr. Anaya and started her on aspirin along with Eliquis. Echocardiogram was performed and revealed a normal left ventricular systolic function with ejection fraction of 65%, otherwise unremarkable. OBJECTIVE: GENERAL: Well-developed, well-nourished white female, not in acute distress. VITAL SIGNS: Revealed a blood pressure of 102/70, respiratory rate 20, pulse is 62 and regular, oxygen saturation 97% on room air. HEENT: Normocephalic, atraumatic, otherwise unremarkable. NECK: Supple. Negative for carotid bruit, JVD, lymphadenopathy, or thyromegaly. LUNGS: Clear to A and P. CARDIOVASCULAR: Regular rhythm, normal S1, S2. ABDOMEN: Soft. No bowel mass, organomegaly, and tenderness. EXTREMITIES: Negative for cyanosis, clubbing, or pitting edema. NEUROLOGICAL EXAM: Mental Status: The patient is alert and oriented x 2. Speech is fluent. There is no language dysfunction. Memory, judgment, and abstract thinking are fair. The patient denies hallucination or delusion. Cranial nerves are grossly intact with mildly diminished hearing loss bilaterally. Motor examination: The patient has a left hemiplegia with contraction in the left upper extremity. She moves lower extremities equally with strength of 4/5. Sensory examination revealed normal pinprick and light touch senses throughout. Deep tendon reflexes were symmetric and hypoactive with absent Achilles responses. Gait not tested as the patient is confined to a wheelchair. LABORATORY DATA: CBC revealed white blood cells of 9.4, hemoglobin 13.6, hematocrit 41, platelet count 364,000. Chemistry revealed sodium of 137, potassium 4.9, chloride 101, CO2 31, BUN 12, creatinine 1.1, glucose is 119, calcium 9.1. Normal magnesium at 1.8 and normal liver enzymes. TSH is normal at 0.92. Urinalysis revealed white blood cells of 11-20 with a small leukocyte esterase and few bacteria. IMPRESSION: 1. Questionable of transient ischemic attack, presented with brief aphasia and worsening of left-sided weakness. 2. Multiple medical problems include hypertension, hyperlipidemia, chronic atrial fibrillation, and history of stroke. RECOMMENDATIONS: 1. Continue with current management initiated by Dr. Anaya. 2. PT/OT as tolerated. 3. Speech therapy evaluation. M Randy PEDRO MD DR: NAEEM/tash JOB#: [id number] / [id number]
--- NOTE | 2018-07-21 03:34 | CONS ---
DATE OF CONSULTATION: 07/16/2018 NEUROLOGIC CONSULTATION REFERRING PHYSICIAN: Carissa Anaya MD REASON FOR CONSULTATION: Acute mental status changes. HISTORY OF PRESENT ILLNESS: This is an 83-year-old right-handed female who was transferred from [facility] for further evaluation for her high output ileostomy, dehydration, and acute renal failure. Neuro consult was requested because the patient has had intermittent mental status changes and confusion 1-2 days prior to this transfer. On arrival to [facility] floor, the patient was found to have recurrent leakage around the colostomy. The patient stated she has had intermittent slurred speech and confusion. Initial nonenhanced head CT scan revealed evidence of chronic small vessel ischemic changes, but otherwise unremarkable. Carotid Doppler study was performed and revealed moderate atherosclerotic plaquing with possible 50-69% stenosis of the right internal carotid artery. Currently, the patient denies headaches, visual disturbances, nausea, vomiting, chest pain, shortness of breath or palpitation, dysarthria, or dysphagia. The patient stated her slurred speech has improved overnight. PAST MEDICAL HISTORY: Significant for hypertension, hyperlipidemia, old right middle cerebral artery infarct resulted in left hemiparesis and contractions, chronic atrial fibrillation, generalized osteoarthritis, history of sigmoid stricture with ischemic colon. PAST SURGICAL HISTORY: Significant for total abdominal hysterectomy, cholecystectomy, cataract removal bilaterally, , subtotal colectomy with end ileostomy with Meckel diverticulectomy. SOCIAL HISTORY: The patient is a . She lives with her son. She denies smoking, alcohol drinking, or illicit drug use. FAMILY HISTORY: Brother from heart attack and stroke. Four sisters of complication of diabetes mellitus, coronary artery disease, and stroke. She has one alive sister at the age of 90 and one alive brother at the age of 77. Father committed suicide at the age of 52 and mother had a stroke and pneumonia, and she at age of 84. ALLERGIES: CODEINE, CETIRIZINE, AZITHROMYCIN, AMPICILLIN, ALBUTEROL, PENICILLIN, and ACETAMINOPHEN. REVIEW OF SYSTEMS: A 10-point review of systems as mentioned above in history of present illness. The patient is confined to a wheelchair secondary to old stroke and contractions of the left side of the left upper and lower extremities. Otherwise, as mentioned above in history of present illness. PHYSICAL EXAMINATION: GENERAL: Well-developed, well-nourished female, not in acute distress. VITAL SIGNS: Blood pressure 140/70, respiratory rate 20, pulse is 62 and regular, temperature 97.5, oxygen saturation 93% on room air. HEENT: Normocephalic, atraumatic, otherwise unremarkable. NECK: Supple, negative for carotid bruit, lymphadenopathy, or thyromegaly. LUNGS: Clear to A and P. CARDIOVASCULAR: Regular rhythm, normal S1, S2. ABDOMEN: No bowel mass, organomegaly, or tenderness. EXTREMITIES: Negative for cyanosis, clubbing, or pitting edema. NEUROLOGIC EXAMINATION: MENTAL STATUS: The patient is alert and oriented x 2. Speech is slow, but coherent. Memory, judgment, and abstract thinking are fair. The patient denies hallucination or delusion. CRANIAL NERVES: Visual santos are full. The pupils are reactive to light and accommodation. The extraocular movements are intact. There is no nystagmus. There is no facial motor or sensory deficit. Hearing appeared to be diminished bilaterally. The palate is elevated symmetrically. Sternocleidomastoid muscles are powerful bilaterally. The patient shrugs her shoulder asymmetrically and protrudes her tongue in the midline without fasciculation or atrophy. MOTOR EXAMINATION: Revealed no focal muscle bulk was seen. The strength was -4/5 in the left upper extremity. Strength was 4/5 in the left lower extremity. The strength elsewhere was 5/5 throughout. Sensory examination revealed diminished pinprick and light touch senses over the left upper and lower extremities compared to those on the right side. Deep tendon reflexes were asymmetric and hypoactive with absent Achilles responses. Gait: The patient is confined to a wheelchair, not able to stand up. LABORATORY DATA: CBC revealed white blood cells of 7300, hemoglobin 12, hematocrit 36, platelet count 271,000. Chemistry: Sodium 143, potassium 3.5, chloride 107, CO2 29, BUN 11, creatinine 1, GFR is low at 52, glucose 90, calcium 8.6, and magnesium 1.7. DIAGNOSTIC DATA: Initial nonenhanced head CT scan as described above in history of present illness. IMPRESSION: 1. Acute encephalopathy -- resolved, probably multifactorial. 2. Remote possibility of transient ischemic attack. 3. Multiple medical problems include hypertension, hyperlipidemia, atrial fibrillation, osteoarthritis, old stroke resulted in left hemiplegia. RECOMMENDATIONS: 1. Continue with current home medications. 2. Continue with current management initiated by Dr. Anaya. M Randy PEDRO MD DR: Damon JOB#: [id number] / [id number]
== END 2018-07-18 11:10 | disposition short-term general hospital (02) | DRG 682 ==
LOC: 1 SOUTH 15:17
PROVIDERS: ADMIT Internal Medicine; ATTEND Internal Medicine
DX: N17.9 Acute kidney failure, unspecified (principal); G93.40 Encephalopathy, unspecified; E87.1 Hypo-osmolality and hyponatremia; G45.9 Transient cerebral ischemic attack, unspecified; I69.354 Hemiplegia and hemiparesis following cerebral infarction affecting left non-dominant side; E87.5 Hyperkalemia; E78.5 Hyperlipidemia, unspecified; E83.42 Hypomagnesemia; E86.0 Dehydration; I10 Essential (primary) hypertension; I48.91 Unspecified atrial fibrillation; M19.90 Unspecified osteoarthritis, unspecified site; Z82.3 Family history of stroke; Z82.49 Family history of ischemic heart disease and other diseases of the circulatory system; Z83.3 Family history of diabetes mellitus; Z90.710 Acquired absence of both cervix and uterus; Z93.3 Colostomy status; Z98.41 Cataract extraction status, right eye; Z98.42 Cataract extraction status, left eye; Z90.722 Acquired absence of ovaries, bilateral; Z90.49 Acquired absence of other specified parts of digestive tract; Z88.6 Allergy status to analgesic agent; Z88.1 Allergy status to other antibiotic agents; Z88.0 Allergy status to penicillin; Z88.8 Allergy status to other drugs, medicaments and biological substances
CPT/HCPCS: 36415; 70450; 80048; 83735; 85027; 93880; 97110; 97530; 97535

== ENCOUNTER 2018-07-18 11:28 | Inpatient (IN) | payer MEDICARE, OTHER ==
[~2018-07-18] VITALS: Ht 152.4 cm; Wt 63.1 kg
[~2018-07-18 11:28] MED LIST changes: +COLE1TAB PO; +MAGN400T3 PO; +OXYC5CAP PO
[2018-07-18] MEDS ORDERED: ASPIRIN 81 MG TAB.CHEW PO ONE (12:00)
[2018-07-18 12:10] LABS: HEMOGLOBIN 13.6 g/dL (12.0-15.5); RED BLOOD COUNT 4.46 x10^6/uL (3.50-5.40); RED CELL DISTRIBUTION WIDTH 13.7 % (11.5-14.5); WHITE BLOOD COUNT 9.4 x10^3/uL (4.0-11.0)
[2018-07-18 12:17] LABS: ALBUMIN 3.1 g/dL (3.4-5.0); ALBUMIN/GLOBULIN RATIO 0.9 (1.0-1.7); CALCIUM 9.1 mg/dL (8.5-10.1); CREATININE 1.1 mg/dL (0.6-1.0); GFR 47.2; MAGNESIUM 1.8 mg/dL (1.8-2.4); POTASSIUM 4.9 mmol/L (3.5-5.1); TOTAL BILIRUBIN 0.5 mg/dL (0.2-1.0); TOTAL PROTEIN 6.7 g/dL (6.4-8.2)
[2018-07-18] MEDS: IV DEXTROSE 5 %-0.45 % NACL 1,000 ML IV SCH (12:30)
[2018-07-18 14:19] VITALS: BP 147/66
--- NOTE | 2018-07-18 14:57 | EKG ---
[address] [address] Test Date: 2018-07-18 Test Time: 12:00:35 Pat Name: WARREN HDEZ Department: Room: 103 A Gender: F Cigar Head Perforator: : 1935 Requested By: KENTRELL SHAFFER Order Number: [id number] Reading MD: David Vale MD Measurements Intervals [place] Rate: 84 P: TX: QRS: -21 QRSD: 88 T: 27 QT: 356 QTc: 424 Interpretive Statements PROBABLE AFIB NON-SPECIFIC ST/T CHANGES Electronically Signed On 07-20-2018 12:08:40 CDT by David Vale MD
[2018-07-18 15:15] VITALS: BP 102/70
--- NOTE | 2018-07-18 15:39 | HP ---
ADMIT DATE: 07/18/2018 HISTORY OF PRESENT ILLNESS: The patient was admitted recently as a transfer from [facility] to swing bed to continue the process of physical and occupational therapy. The patient was noted to be slurring her speech and also has been having difficulty with expressive aphasia and she has required 2-person assist to transfer her from the bed to her power chair or to bedside commode and her son was concerned that this is a dramatic change in her status and therefore the patient was discharged from swing bed and was admitted to inpatient status on telemetry bed to investigate this further. She was put in telemetry. We did order a 12-lead EKG and consulted Dr. Duke again. She was investigated before with a CT scan of the head without contrast as well as bilateral carotid Doppler ultrasound, which showed that she might have stenosis in the left internal carotid artery and it seems that the patient is having recurrent transient ischemic attack. Therefore, I started her on aspirin and continued her apixaban. I ordered also an echocardiogram. PAST MEDICAL HISTORY: Significant for hypertension, chronic atrial fibrillation, hyperlipidemia, right middle cerebral artery territory infarct with left-sided hemiplegia 15 years ago. She is mostly in a power chair, although she can use a walker to transfer. She is also known to have generalized osteoarthritis. She recently was admitted with recurrent bouts of nausea, vomiting and found to have a sigmoid stricture with ischemic colon for which she underwent subtotal colectomy and end ileostomy as well as Meckel's diverticulectomy. PAST SURGICAL HISTORY: Significant for total abdominal hysterectomy, bilateral salpingo-oophorectomy, colonoscopy, cholecystectomy, bilateral cataract extraction, esophagogastroduodenoscopy. She also had a section. Most recently, she underwent a right rigid proctoscopy, subtotal colectomy, and end ileostomy with Meckel's diverticulectomy. FAMILY HISTORY: She has 3 brothers and 5 sisters. Older brother of myocardial infarction and CVA. Four sisters, all of them of complication of diabetes, coronary artery disease, and cerebrovascular accident. She has 1 older sister who is still alive at the age of 90. One younger brother at the age of 77 who is still alive. Her mother at the age of 84 because of pneumonia and CVA. Her father committed suicide at the age of 52. SOCIAL HISTORY: She is , lives with her son. One of her sons of diabetes and cerebral aneurysm. She has never smoked, does not drink alcohol or use any recreational drugs. ALLERGIES: She is allergic to PENICILLIN, ACETAMINOPHEN, ALBUTEROL, AMPICILLIN, AZITHROMYCIN, CETIRIZINE, CODEINE, AND DIPHENHYDRAMINE. MEDICATIONS: She is currently on following medications: She is on apixaban 5 mg twice a day, colestipol 2 grams twice a day, carvedilol 12.5 mg twice a day, amlodipine 10 mg daily, oxycodone 5 mg every 6 hours, magnesium oxide 400 mg 3 times a day. She is also on aspirin 81 mg once a day. REVIEW OF SYSTEMS: As per history of present illness. PHYSICAL EXAMINATION GENERAL: When I saw her this morning, she was sitting comfortably in her power wheelchair, in no apparent respiratory distress. She was pale, not jaundiced, cyanosed from thyromegaly. No jugular venous distention. No lower limb edema. VITAL SIGNS: Her heart rate was 61, blood pressure was 147/66, temperature was 97.5, respiratory rate was 20, and oxygen saturation was 93%. HEAD, EYES, EARS, NOSE, AND THROAT: Showed normocephalic, atraumatic. NECK: Supple. HEART: Showed normal first and second heart sounds with no gallop, rub, or murmur. CHEST: Clear to auscultation. No crepitation or rhonchi. ABDOMEN: Distended, soft, nontender. No guarding or rigidity. No organomegaly. Hernial orifice intact. Bowel sounds normal. NEUROLOGIC: She is awake, alert. Clearly, she is somewhat confused and disoriented. She has also difficulty with finding words, although grossly, all her cranial nerves are intact. She has left-sided hemiplegia. She is mostly bedbound and chair bound. LABORATORY DATA: Her lab work this morning showed a white cell count of 9400, hemoglobin 13.6, hematocrit 41, MCV 92, and platelet count of 364,000. Her chemistry showed a serum sodium 137, potassium 4.9, chloride 101, bicarbonate 31, anion gap of 5, BUN 12, creatinine 1.1, estimated GFR was 47 mL per minute. Her glucose was 119. Calcium was 9.1, magnesium was 1.8. Total bilirubin, AST, ALT, alkaline phosphatase were normal. Her total protein was 6.7, albumin 3.1. ASSESSMENT: Probably altered mental status with an expressive aphasia and worsening weakness, most likely due to recurrent transient ischemic attacks. Other problems include hypertension, hyperlipidemia, chronic atrial fibrillation for which she is on apixaban and the heart rate is controlled on carvedilol. I will check her fasting lipid profile. We have already consulted Dr. Duke. The nurse noted that she has difficulty swallowing, so we kept her n.p.o. We will start her on IV fluid for now. We will consult physical therapist, occupational therapist, and speech therapist and we will decide on further management accordingly. KENTRELL SHAFFER MD DR: RAFFI/tash JOB#: [id number] / [id number]
[2018-07-18] MEDS: oxyCODONE IR 5 MG TABLET PO PRN (15:50)
[2018-07-18] MEDS: MAGNESIUM OXIDE 400 MG TABLET PO SCH ×2 (15:50→20:42)
[2018-07-18] MEDS: CARVEDILOL 12.5 MG TABLET PO SCH (17:33)
[2018-07-18] MEDS: COLESTIPOL HCL 1 GM TABLET PO SCH (18:00)
[2018-07-18 19:19] VITALS: BP 121/69
[2018-07-18] MEDS: NYSTATIN TOPICAL POWDER 15GM BOTTLE. TP SCH (20:42)
[2018-07-18] MEDS: APIXABAN 5 MG TABLET. PO SCH (20:42)
[2018-07-18 22:58] VITALS: BP 110/70
[2018-07-19] MEDS: IV DEXTROSE 5 %-0.45 % NACL 1,000 ML IV SCH ×2 (02:50→15:10)
[2018-07-19 05:13] VITALS: BP 105/53
[2018-07-19] MEDS: CARVEDILOL 12.5 MG TABLET PO SCH ×2 (08:00→21:02)
[2018-07-19] MEDS: amLODIPine BESYLATE 10 MG TABLET PO SCH (09:00)
[2018-07-19] MEDS: APIXABAN 5 MG TABLET. PO SCH ×2 (09:35→21:02)
[2018-07-19] MEDS: MAGNESIUM OXIDE 400 MG TABLET PO SCH ×3 (09:35→21:02)
[2018-07-19] MEDS: NYSTATIN TOPICAL POWDER 15GM BOTTLE. TP SCH ×2 (09:36→21:02)
[2018-07-19] MEDS: COLESTIPOL HCL 1 GM TABLET PO SCH ×2 (09:36→21:02)
[2018-07-19] MEDS: ASPIRIN 81 MG TAB.CHEW PO SCH (09:37)
[2018-07-19] MEDS: oxyCODONE IR 5 MG TABLET PO PRN (09:38)
[2018-07-19 10:19] VITALS: BP 122/65
[2018-07-19 10:48] VITALS: BP_SYST 116; BP_SYST 122; BP_DIAS 65; BP_DIAS 76
--- NOTE | 2018-07-19 11:51 | PN ---
DATE: 07/19/2018 SUBJECTIVE: The patient is resting slightly propped up in bed, in no apparent distress. She is awake, alert, continued to have difficulty finding words and slurring of her speech, but said that she has slept very well last night, has not moved at all. Her pain is well controlled. She managed to take her pain medication mixed with yogurt and has no difficulty with that. She denied any leakage around her colostomy. The nursing staff did not voice any concern, stated that she has an uneventful night. PHYSICAL EXAMINATION: GENERAL: When I examined her, she looked pale, but no jaundice, cyanosis, or thyromegaly. No jugular venous distension. No lower limb edema. VITAL SIGNS: Her heart rate was 90, blood pressure was 122/65, temperature was 98.2, respiratory rate was 20, and oxygen saturation was 97% on room air. HEAD, EYES, EARS, NOSE, AND THROAT: Showed normocephalic, atraumatic. NECK: Supple. HEART: Showed normal first and second heart sounds with no gallop, rub, or murmur. CHEST: Clear to auscultation. No crepitation or rhonchi. ABDOMEN: Distended, soft with colostomy in the left lower quadrant. There is no tenderness. No guarding or rigidity. No organomegaly. Hernial orifice intact. Bowel sounds normal. NEUROLOGIC: She is awake, alert, responding appropriately. All her cranial nerves intact. She has left-sided hemiplegia. She continued to have some slurring of her speech and has also difficulty finding words at times. Her intake over the last 24 hours was 1300, output was 950. LABORATORY DATA: Her lab work as of yesterday showed a serum sodium 137, potassium 4.9, chloride 101, bicarbonate 31, anion gap of 5, BUN 12, creatinine 1.1, estimated GFR was 47 mL per minute. Her glucose was 119, calcium was 9.1, magnesium was 1.8. Total bilirubin, AST, ALT, alkaline phosphatase were normal. Total protein was 6.7, albumin 3.1. Her white cell count was 9400, hemoglobin 13.6, hematocrit 41, MCV 92, and platelet count of 364,000. ASSESSMENT: Recurrent transient ischemic attacks. The patient continued to have some slurring of speech and difficulty finding words. Other medical problems include hypertension seems to be well controlled; chronic atrial fibrillation, rate controlled; hyperlipidemia; right middle cerebral artery territory infarct, left side hemiplegia. She has had also sigmoid stricture and ischemic colon, status post subtotal colectomy, ileostomy, and Meckel's diverticulectomy. PLAN: To continue with IV fluid for now, continue with aspirin 81 mg once a day as well as apixaban 5 mg twice a day. Continue with colestipol 2 grams twice a day as she has high output ileostomy. I will repeat all her labs tomorrow including her fasting lipid profile to see whether statin should be added. KENTRELL SHAFFER MD DR: RAFFI/tash JOB#: [id number] / [id number]
[2018-07-19 14:18] VITALS: BP 133/77
[2018-07-19 18:54] LABS: BILIRUBIN,URINE NEG (NEG); CLARITY,URINE CLEAR; COLOR,URINE STRAW; GLUCOSE,URINE NEG (NEG)
[2018-07-19 18:55] LABS: BACTERIA,URINE FEW /HPF (0-FEW); NITRITE,URINE NEG (NEG); RBC,URINE 0 /HPF (0-2); SQUAMOUS EPITHELIAL CELL,UR OCC /LPF; UROBILINOGEN,URINE 0.2 mg/dL (0.2 mg/dL)
[2018-07-19 20:18] VITALS: BP 157/69
[2018-07-19 23:20] VITALS: BP 131/73
[2018-07-20] MEDS: IV DEXTROSE 5 %-0.45 % NACL 1,000 ML IV SCH ×3 (04:30→23:46)
[2018-07-20 06:10] VITALS: BP 131/78
[2018-07-20 06:33] LABS: HEMATOCRIT 35.5 % (36.0-47.0); HEMOGLOBIN 11.7 g/dL (12.0-15.5); RED BLOOD COUNT 3.88 x10^6/uL (3.50-5.40); RED CELL DISTRIBUTION WIDTH 13.4 % (11.5-14.5); WHITE BLOOD COUNT 6.2 x10^3/uL (4.0-11.0)
[2018-07-20 06:40] LABS: ALBUMIN 2.2 g/dL (3.4-5.0); ALBUMIN/GLOBULIN RATIO 0.8 (1.0-1.7); CALCIUM 8.3 mg/dL (8.5-10.1); CREATININE 0.8 mg/dL (0.6-1.0); GFR 68.2; POTASSIUM 3.7 mmol/L (3.5-5.1); TOTAL BILIRUBIN 0.4 mg/dL (0.2-1.0)
[2018-07-20] MEDS: NYSTATIN TOPICAL POWDER 15GM BOTTLE. TP SCH ×2 (09:44→21:00)
[2018-07-20] MEDS: amLODIPine BESYLATE 10 MG TABLET PO SCH (09:44)
[2018-07-20] MEDS: ASPIRIN 81 MG TAB.CHEW PO SCH (09:44)
[2018-07-20] MEDS: APIXABAN 5 MG TABLET. PO SCH ×2 (09:44→21:22)
[2018-07-20] MEDS: COLESTIPOL HCL 1 GM TABLET PO SCH ×2 (09:44→17:55)
[2018-07-20] MEDS: MAGNESIUM OXIDE 400 MG TABLET PO SCH ×3 (09:45→21:22)
[2018-07-20] MEDS: CARVEDILOL 12.5 MG TABLET PO SCH ×2 (09:45→17:11)
[2018-07-20 11:02] VITALS: BP 124/60
--- NOTE | 2018-07-20 15:48 | CARD ---
MR#: [id number] Date of Study: 07/20/2018 Ordering Physician: KENTRELL SHAFFER, Referring Physician: KENTRELL SHAFFER Tech: DANYELLE Ayoub APPROVED REPORT EXAM: Two-dimensional and M-mode echocardiogram with Doppler and color Doppler. Other Information Quality : AverageHR: 55bpm INDICATION CVA/TIA 2D DIMENSIONS RVDd2.7 (2.9-3.5cm)Left Atrium(2D)3.6 (1.6-4.0cm) IVSd1.4 (0.7-1.1cm)Aortic Root(2D)2.6 (2.0-3.7cm) LVDd4.0 (3.9-5.9cm)LVOT Diameter1.8 (1.8-2.4cm) PWd1.2 (0.7-1.1cm)LVDs2.5 (2.5-4.0cm) FS (%) 38.3 %SV48.9 ml LVEF(%)69.2 (>50%) Aortic Valve AoV Peak Gregory.106.8cm/sAoV VTI19.4cm AO Peak GR.4.6mmHgLVOT Peak Gregory.67.8cm/s LVOT VTI 15.70cmAO Mean GR.3mmHg REBECCA (VMAX)1.64gl9XZP (VTI)1.96cm2 Pulmonary Valve PV Peak Fjpavyms53.5cm/sPV Peak Grad.3mmHg Tricuspid Valve TR P. Ztgerrso397tq/sTR Peak Gr.24mmHg Pulmonary Vein S1 Sorftxsr15.6cm/sD2 Rlwbglny12.0cm/s LEFT VENTRICLE The left ventricle is normal size. There is mild concentric left ventricular hypertrophy. The left ve ntricular systolic function is normal. The ejection fraction is estimated at 65%. There is normal LV segmental wall motion. RIGHT VENTRICLE The right ventricle cavity is small. The right ventricular systolic function is normal. ATRIA The left atrium size is normal. The right atrium size is normal. The interatrial septum is intact wit h no evidence for an atrial septal defect or patent foramen ovale as noted on 2-D or Doppler imaging. Bubble study negative for intracardiac shunt. AORTIC VALVE The aortic valve is thickened but opens well. Doppler and Color Flow revealed no significant aortic r egurgitation. There is no significant aortic valvular stenosis. There is no aortic valvular vegetatio n. MITRAL VALVE The mitral valve is thickened but opens well. There is no evidence of mitral valve prolapse. There is no mitral valve stenosis. Doppler and Color-flow revealed trace mitral regurgitation. TRICUSPID VALVE The tricuspid valve leaflets are thickened , but open well. Doppler and Color Flow revealed mild tric uspid regurgitation. There is no tricuspid valve prolapse or vegetation. There is no tricuspid valve stenosis. PULMONIC VALVE The pulmonic valve is not well visualized. Doppler and Color Flow revealed no pulmonic valvular regur gitation. There is no pulmonic valvular stenosis. GREAT VESSELS The aortic root is normal in size. The IVC is normal in size and collapses >50% with inspiration. PERICARDIAL EFFUSION There is no pleural effusion. There is no evidence of significant pericardial effusion. Critical Notification Critical Value: No <Conclusion> The left ventricular systolic function is normal. The ejection fraction is estimated at 65%. There is normal LV segmental wall motion. Trace mitral regurgitation. Mild tricuspid regurgitation. There is no evidence of significant pericardial effusion. Bubble study negative for intracardiac shunt. Signed by : Wilner Wallace, Electronically Approved : 07/20/2018 15:47:06
[2018-07-20 16:31] VITALS: BP 109/46
[2018-07-20 19:49] VITALS: BP 137/77
--- NOTE | 2018-07-21 00:20 | PN ---
DATE: 07/20/2018 SUBJECTIVE: The patient is sitting comfortably in her bed, in no apparent distress. She apparently was seen yesterday by the speech therapy. She has had a bedside swallow evaluation while she was sitting in bed. She was found to have mild oral dysphagia without evidence of aspiration. She is now on dysphagia 2 mechanically soft diet with thin liquid and to take her medication whole or crushed. She should be sitting up at 90 degrees for all p.o. intake, clear left side oral cavity to prevent pocketing precaution posted, diet orders entered. The physical therapist said that she is now a 2-person assist which is a definite decline from previous abilities. PHYSICAL EXAMINATION: GENERAL: When I examined her this morning, she looked well and was clearly in no apparent respiratory distress. No pallor, jaundice, cyanosis, or thyromegaly. No jugular venous distension. No limb edema. VITAL SIGNS: Her heart rate was 74, blood pressure was 124/60, temperature was 97.9, respiratory rate was 18, and oxygen saturation was 97%. HEAD, EYES, EARS, NOSE, AND THROAT: Normocephalic, atraumatic. NECK: Supple. HEART: Showed normal first and second heart sounds with no gallop, rub, or murmur. CHEST: Clear to auscultation. No crepitation or rhonchi. ABDOMEN: Distended, soft, nontender. No guarding or rigidity. No organomegaly. All hernial orifice intact. Bowel sounds normal. She has an ileostomy in the left lower quadrant. NEUROLOGIC: She is awake, alert. She definitely has evidence of expressive aphasia. She is now a 2-person assist. She has also some contractions in her left hand. Her intake over the last 24 hours was 1320, output was 950. LABORATORY DATA: Her lab work as of this morning showed a white cell count of 6200, hemoglobin 11.7, hematocrit 35.5, MCV 92, and platelet count 270,000. Her serum sodium was 140, potassium 3.7, chloride 104, bicarbonate 31, anion gap of 5, BUN 9, creatinine 0.8, estimated GFR was 68 mL per minute. Her glucose was 90, calcium was 8.3, magnesium was 1.6. Total bilirubin, AST, ALT, alkaline phosphatase were normal. Total protein was 5, albumin 2.2. Her serum triglycerides were 78. Total cholesterol was 112, LDL was 53, VLDL was 15, and HDL cholesterol was 44, ratio was 2. Her TSH was 0.924, which is well within normal range. She did have bilateral carotid Doppler, which showed that the patient has moderate atherosclerotic plaquing within the carotid bifurcation. She has mildly elevated right internal carotid artery to common carotid artery velocity ratio. This can be seen with 50-69% stenosis; however, the peak systolic velocities within the right internal carotid artery just less than 50% stenosis and the patient has no evidence of hemodynamically significant stenosis within the left internal carotid artery or bilateral vertebral arteries. Her CT scan of the head showed that the patient has no abnormality, age-related cerebral atrophy and periventricular white matter changes of chronic small vessel ischemic disease. ASSESSMENT AND PLAN: So in summary, this is an 83-year-old female patient with a clear-cut decline in her functional capabilities. She definitely has expressive aphasia and she is now a 2-person assist. She used to be able to pivot and transfer on her own from bed to her scooter and vice versa. She probably has a transient ischemic attack or completed stroke, although a CT scan did not show it. I am not sure that she is a candidate even if she has hemodynamically significant stenosis given her age. She is already on apixaban and we added also aspirin 81 mg once a day. Other medical problems include; 1. High ileostomy output with recurrent episode of acute kidney injury. 2. Hypokalemia, resolved. 3. Hypomagnesemia. 4. She has hypertension that is well controlled, chronic atrial fibrillation, and right middle cerebral artery territory infarct with left-sided hemiplegia. KENTRELL SHAFFER MD DR: RAFFI/tash JOB#: [id number] / [id number]
[2018-07-21 03:30] VITALS: BP 125/61
[2018-07-21 05:11] VITALS: BP 120/67
[2018-07-21] MEDS: ASPIRIN 81 MG TAB.CHEW PO SCH (08:49)
[2018-07-21] MEDS: CARVEDILOL 12.5 MG TABLET PO SCH (08:51)
[2018-07-21] MEDS: COLESTIPOL HCL 1 GM TABLET PO SCH (08:53)
[2018-07-21] MEDS: APIXABAN 5 MG TABLET. PO SCH (08:54)
[2018-07-21] MEDS: MAGNESIUM OXIDE 400 MG TABLET PO SCH ×2 (08:55→14:04)
[2018-07-21] MEDS: amLODIPine BESYLATE 10 MG TABLET PO SCH (08:56)
[2018-07-21] MEDS: NYSTATIN TOPICAL POWDER 15GM BOTTLE. TP SCH (09:00)
[2018-07-21 09:21] VITALS: BP 131/51
[2018-07-21] MEDS ORDERED: IBUPROFEN 400 MG TABLET. PO ONE (10:00)
[2018-07-21 10:54] VITALS: BP 107/72
[2018-07-21] MEDS ORDERED: ASPI-630 PO (13:36)
--- NOTE | 2018-07-21 14:05 | DS ---
DATE OF DISCHARGE: 07/21/2018 HOSPITAL COURSE: The patient is an 83-year-old female patient, who was originally brought here from [facility] to swing bed status. Unfortunately, she developed new onset expressive aphasia and weakness and therefore, we switched her to acute care. She has had multiple imaging including carotid Doppler ultrasound, CT scan of the head. CT scan of the head showed no acute intracranial abnormality. She has age-related cerebral atrophy and periventricular white matter changes of chronic small vessel ischemic disease. Her carotid Doppler showed moderate atherosclerotic plaque within the carotid bifurcation. She has mildly elevated right internal carotid artery to common carotid artery velocity ratio. This can be seen with 50-69% stenosis; however: The peak systolic velocities within the right internal carotid artery suggest less than 50% stenosis. There is no evidence of hemodynamically significant stenosis within the left internal carotid artery with bilateral vertebral arteries. She did have also an echocardiogram with bubble study and her left ventricular systolic function was normal, ejection fraction estimated 65%. There is normal left ventricular segmental wall motion, trace mitral regurgitation, mild tricuspid regurgitation. There is no evidence of significant pericardial effusion. Bubble study negative for intracardiac shunt. It was felt that the patient is stable to be transferred to swing bed status to continue the process of physical and occupational therapy with the understanding that the patient's level of function has declined. She is now 2-person assist and the list she has dramatically improved she probably will end up in a long-term care facility. PHYSICAL EXAMINATION: GENERAL: When I examined her this afternoon, she looked well and was clearly in no apparent respiratory distress. No pallor, jaundice, cyanosis, or thyromegaly. No jugular venous distension. No limb edema. VITAL SIGNS: Her heart rate was 77, blood pressure was 107/72, temperature was 97.4, respiratory rate was 20, and oxygen saturation was 96% on room air. HEAD, EYES, EARS, NOSE AND THROAT: Normocephalic, atraumatic. NECK: Supple. HEART: Showed normal first and second heart sounds with no gallop, rub or murmur. CHEST: Clear to auscultation. No crepitation or rhonchi. ABDOMEN: Distended, soft, nontender. No guarding or rigidity. No organomegaly. All hernial orifice intact. Bowel sounds normal. Her midline surgical incision has healed nicely. She has an ileostomy in the left lower quadrant. NEUROLOGICAL: She is awake, alert. All other cranial nerves intact. She continued to have expressive aphasia. She has old left side weakness. However, the patient's level of function has declined. She is now 2-person assist to transfer her from bed to chair and vice versa. Her intake over the last 24 hours was 1024, output was 2024. LABORATORY DATA: Her lab work showed a white cell count of 6200, hemoglobin 11.7, hematocrit 35.5, MCV 92, and platelet count 270,000. Her chemistry showed a serum sodium 140, potassium 3.7, chloride 104, bicarbonate 31, anion gap of 5, BUN 9, creatinine 0.8, estimated GFR was 68 mL per minute. Her glucose was 90, calcium was 8.3, magnesium was 1.6. Total bilirubin, AST, ALT, alkaline phosphatase were normal. Total protein 5, albumin 2.2. Her triglycerides were 78, cholesterol was 112. LDL was 53, VLDL was 15, and HDL cholesterol was 44 and ratio was 2. Her TSH was 0.924. DISCHARGE MEDICATIONS: The patient was discharged to swing bed to continue on following medications: Aspirin 81 mg once a day, amlodipine 10 mg once a day, apixaban 5 mg twice a day, carvedilol 12.5 mg twice a day, colestipol 2 grams twice a day, magnesium oxide 400 mg 3 times a day and oxycodone 5 mg every 6 hours. FINAL DISCHARGE DIAGNOSES: 1. Recurrent TIA with weakness and expressive aphasia. Other medical problems include high ileostomy output, recurrent episode of acute kidney injury. 2. Hypokalemia, resolved. 3. Hypomagnesemia, resolved. 4. Hypertension, well controlled. 5. Chronic atrial fibrillation, rate controlled, well anticoagulated. 6. Right middle cerebral artery territory infarct with left side hemiplegia. KENTRELL SHAFFER MD DR: RAFFI/tash JOB#: [id number] / [id number]
[2018-07-21 14:15] VITALS: BP 94/60
[2018-07-21] MEDS ORDERED: NYST15PO9 TP (16:19)
== END 2018-07-21 15:06 | DRG 64 ==
LOC: 1 SOUTH 11:28
PROVIDERS: ADMIT Internal Medicine; ATTEND Internal Medicine
DX: I63.9 Cerebral infarction, unspecified (principal); N17.0 Acute kidney failure with tubular necrosis; G45.9 Transient cerebral ischemic attack, unspecified; G81.94 Hemiplegia, unspecified affecting left nondominant side; E78.5 Hyperlipidemia, unspecified; E83.42 Hypomagnesemia; E87.6 Hypokalemia; I10 Essential (primary) hypertension; I48.2 Chronic atrial fibrillation; I63.511 Cerebral infarction due to unspecified occlusion or stenosis of right middle cerebral artery; M15.9 Polyosteoarthritis, unspecified; R13.11 Dysphagia, oral phase; R47.01 Aphasia; Z79.82 Long term (current) use of aspirin; Z82.3 Family history of stroke; Z82.49 Family history of ischemic heart disease and other diseases of the circulatory system; Z83.3 Family history of diabetes mellitus; Z86.73 Personal history of transient ischemic attack (TIA), and cerebral infarction without residual deficits; Z90.49 Acquired absence of other specified parts of digestive tract; Z90.710 Acquired absence of both cervix and uterus; Z98.41 Cataract extraction status, right eye; Z98.42 Cataract extraction status, left eye; Z90.722 Acquired absence of ovaries, bilateral; Z88.6 Allergy status to analgesic agent; Z88.1 Allergy status to other antibiotic agents; Z88.0 Allergy status to penicillin; Z88.8 Allergy status to other drugs, medicaments and biological substances
CPT/HCPCS: 36415; 80053; 80061; 81001; 83735; 84443; 85027; 87086; 92526; 93005; C8929; 92610; 97110

== ENCOUNTER 2018-07-21 15:05 | Inpatient (IN) | payer MEDICARE, OTHER ==
[~2018-07-21] VITALS: Ht 152.4 cm; Wt 65.4 kg
[~2018-07-21 15:05] MED LIST changes: +ASPI-630 PO
[2018-07-21] MEDS ORDERED: NYST15PO9 TP (16:19)
[2018-07-21] MEDS ORDERED: oxyCODONE IR 5 MG TABLET PO PRN (16:30)
[2018-07-21] MEDS: CARVEDILOL 12.5 MG TABLET PO SCH (17:34)
[2018-07-21] MEDS: COLESTIPOL HCL 1 GM TABLET PO SCH (17:34)
[2018-07-21 17:35] VITALS: BP 123/64
[2018-07-21] MEDS: NYSTATIN TOPICAL POWDER 15GM BOTTLE. TP SCH (21:02)
[2018-07-21] MEDS: MAGNESIUM OXIDE 400 MG TABLET PO SCH (21:02)
[2018-07-21] MEDS: APIXABAN 5 MG TABLET. PO SCH (21:02)
[2018-07-22 05:59] VITALS: BP 91/59
[2018-07-22] MEDS: ASPIRIN 81 MG TAB.CHEW PO SCH (08:22)
[2018-07-22] MEDS: MAGNESIUM OXIDE 400 MG TABLET PO SCH ×3 (08:22→21:32)
[2018-07-22] MEDS: APIXABAN 5 MG TABLET. PO SCH ×2 (08:25→21:32)
[2018-07-22] MEDS: CARVEDILOL 12.5 MG TABLET PO SCH ×2 (08:25→17:42)
[2018-07-22] MEDS: COLESTIPOL HCL 1 GM TABLET PO SCH ×2 (08:25→17:41)
[2018-07-22] MEDS: NYSTATIN TOPICAL POWDER 15GM BOTTLE. TP SCH ×2 (08:26→21:32)
[2018-07-22] MEDS: amLODIPine BESYLATE 10 MG TABLET PO SCH (08:33)
[2018-07-22 17:52] VITALS: BP 139/84
[2018-07-23 06:21] VITALS: BP 86/52
[2018-07-23 08:16] VITALS: BP 123/80
[2018-07-23] MEDS: amLODIPine BESYLATE 10 MG TABLET PO SCH (08:17)
[2018-07-23] MEDS: MAGNESIUM OXIDE 400 MG TABLET PO SCH ×3 (08:18→21:58)
[2018-07-23] MEDS: APIXABAN 5 MG TABLET. PO SCH ×2 (08:18→21:58)
[2018-07-23] MEDS: COLESTIPOL HCL 1 GM TABLET PO SCH ×2 (08:18→16:40)
[2018-07-23] MEDS: CARVEDILOL 12.5 MG TABLET PO SCH ×2 (08:18→16:40)
[2018-07-23] MEDS: NYSTATIN TOPICAL POWDER 15GM BOTTLE. TP SCH ×2 (08:18→21:58)
[2018-07-23] MEDS: ASPIRIN 81 MG TAB.CHEW PO SCH (08:18)
[2018-07-23 15:32] VITALS: BP 121/72
[2018-07-24 06:23] VITALS: BP 134/81
[2018-07-24] MEDS: ASPIRIN 81 MG TAB.CHEW PO SCH (08:54)
[2018-07-24] MEDS: COLESTIPOL HCL 1 GM TABLET PO SCH ×2 (08:55→17:33)
[2018-07-24] MEDS: CARVEDILOL 12.5 MG TABLET PO SCH ×2 (08:55→17:33)
[2018-07-24] MEDS: APIXABAN 5 MG TABLET. PO SCH ×2 (08:55→21:44)
[2018-07-24] MEDS: MAGNESIUM OXIDE 400 MG TABLET PO SCH ×3 (08:56→21:44)
[2018-07-24] MEDS: amLODIPine BESYLATE 10 MG TABLET PO SCH (08:56)
[2018-07-24] MEDS: NYSTATIN TOPICAL POWDER 15GM BOTTLE. TP SCH ×2 (08:57→21:44)
[2018-07-24 18:20] VITALS: BP 116/60
[2018-07-25 06:43] VITALS: BP 115/64
[2018-07-25] MEDS: ASPIRIN 81 MG TAB.CHEW PO SCH (08:00)
[2018-07-25] MEDS: CARVEDILOL 12.5 MG TABLET PO SCH ×2 (08:00→17:14)
[2018-07-25] MEDS: NYSTATIN TOPICAL POWDER 15GM BOTTLE. TP SCH ×2 (09:00→21:00)
[2018-07-25] MEDS: APIXABAN 5 MG TABLET. PO SCH ×2 (09:00→21:04)
[2018-07-25] MEDS: amLODIPine BESYLATE 10 MG TABLET PO SCH (09:00)
[2018-07-25] MEDS: MAGNESIUM OXIDE 400 MG TABLET PO SCH ×3 (09:00→21:05)
[2018-07-25] MEDS: COLESTIPOL HCL 1 GM TABLET PO SCH ×2 (10:19→17:15)
[2018-07-25 18:01] VITALS: BP 134/76
[2018-07-26 06:39] VITALS: BP 114/69
[2018-07-26] MEDS: amLODIPine BESYLATE 10 MG TABLET PO SCH (08:35)
[2018-07-26] MEDS: APIXABAN 5 MG TABLET. PO SCH ×2 (08:35→21:44)
[2018-07-26] MEDS: MAGNESIUM OXIDE 400 MG TABLET PO SCH ×3 (08:36→21:44)
[2018-07-26] MEDS: CARVEDILOL 12.5 MG TABLET PO SCH ×2 (08:36→17:13)
[2018-07-26] MEDS: ASPIRIN 81 MG TAB.CHEW PO SCH (08:36)
[2018-07-26] MEDS: COLESTIPOL HCL 1 GM TABLET PO SCH ×2 (08:37→17:13)
[2018-07-26] MEDS: NYSTATIN TOPICAL POWDER 15GM BOTTLE. TP SCH ×2 (09:00→21:00)
[2018-07-26 17:56] VITALS: BP 124/62
[2018-07-27 06:17] VITALS: BP 125/60
[2018-07-27] MEDS: ASPIRIN 81 MG TAB.CHEW PO SCH (08:22)
[2018-07-27] MEDS: COLESTIPOL HCL 1 GM TABLET PO SCH ×2 (08:23→17:16)
[2018-07-27] MEDS: CARVEDILOL 12.5 MG TABLET PO SCH ×2 (08:23→17:16)
[2018-07-27] MEDS: MAGNESIUM OXIDE 400 MG TABLET PO SCH ×3 (08:24→21:11)
[2018-07-27] MEDS: APIXABAN 5 MG TABLET. PO SCH ×2 (08:24→21:11)
[2018-07-27] MEDS: amLODIPine BESYLATE 10 MG TABLET PO SCH (08:24)
[2018-07-27] MEDS: NYSTATIN TOPICAL POWDER 15GM BOTTLE. TP SCH ×2 (09:01→21:00)
[2018-07-27 18:00] VITALS: BP 96/65
[2018-07-28 06:05] VITALS: BP 132/73
[2018-07-28] MEDS: ASPIRIN 81 MG TAB.CHEW PO SCH (08:17)
[2018-07-28] MEDS: CARVEDILOL 12.5 MG TABLET PO SCH ×2 (08:20→17:30)
[2018-07-28] MEDS: COLESTIPOL HCL 1 GM TABLET PO SCH ×2 (08:21→17:31)
[2018-07-28] MEDS: amLODIPine BESYLATE 10 MG TABLET PO SCH (08:22)
[2018-07-28] MEDS: APIXABAN 5 MG TABLET. PO SCH ×2 (08:23→20:15)
[2018-07-28] MEDS: NYSTATIN TOPICAL POWDER 15GM BOTTLE. TP SCH ×2 (08:23→20:15)
[2018-07-28] MEDS: MAGNESIUM OXIDE 400 MG TABLET PO SCH ×3 (08:23→20:15)
[2018-07-28 18:08] VITALS: BP 133/80
[2018-07-29 06:04] VITALS: BP 132/65
[2018-07-29] MEDS: ASPIRIN 81 MG TAB.CHEW PO SCH (08:19)
[2018-07-29] MEDS: APIXABAN 5 MG TABLET. PO SCH ×2 (08:19→20:17)
[2018-07-29] MEDS: MAGNESIUM OXIDE 400 MG TABLET PO SCH ×3 (08:20→20:17)
[2018-07-29] MEDS: amLODIPine BESYLATE 10 MG TABLET PO SCH (08:20)
[2018-07-29] MEDS: CARVEDILOL 12.5 MG TABLET PO SCH ×2 (08:20→16:53)
[2018-07-29] MEDS: NYSTATIN TOPICAL POWDER 15GM BOTTLE. TP SCH ×2 (08:23→20:17)
[2018-07-29] MEDS: COLESTIPOL HCL 1 GM TABLET PO SCH ×2 (10:36→16:53)
[2018-07-29 18:03] VITALS: BP 97/55
[2018-07-29 22:10] LABS: FECAL OB PT POSITIVE (NEG)
[2018-07-30 04:18] VITALS: BP 105/63
[2018-07-30 07:00] LABS: BASO # 0.1 x10^3/uL (0.0-0.2); BASO % 1 % (0-3); EOS # 0.3 x10^3/uL (0.0-0.7); EOS % 5 % (0-3); HEMATOCRIT 35.8 % (36.0-47.0); HEMOGLOBIN 11.8 g/dL (12.0-15.5); LYMPH % 17 % (24-48); MEAN CORPUSCULAR HEMOGLOBIN 30 pg (25-35); MEAN CORPUSCULAR HGB CONC 33 g/dL (31-37); MEAN CORPUSCULAR VOLUME 91 fL (79-100); MONO # 0.7 x10^3/uL (0.0-1.1); MONO % 11 % (0-9); NEUT # 4.2 x10^3uL (1.8-7.7); NEUT % 67 % (31-73); PLATELET COUNT 321 x10^3/uL (140-400); RED BLOOD COUNT 3.95 x10^6/uL (3.50-5.40); RED CELL DISTRIBUTION WIDTH 13.7 % (11.5-14.5); WHITE BLOOD COUNT 6.3 x10^3/uL (4.0-11.0)
[2018-07-30] MEDS: ASPIRIN 81 MG TAB.CHEW PO SCH (09:07)
[2018-07-30] MEDS: COLESTIPOL HCL 1 GM TABLET PO SCH (09:07)
[2018-07-30] MEDS: NYSTATIN TOPICAL POWDER 15GM BOTTLE. TP SCH (09:07)
[2018-07-30 09:08] VITALS: BP 105/63
[2018-07-30] MEDS: amLODIPine BESYLATE 10 MG TABLET PO SCH (09:08)
[2018-07-30] MEDS: CARVEDILOL 12.5 MG TABLET PO SCH (09:08)
[2018-07-30] MEDS: MAGNESIUM OXIDE 400 MG TABLET PO SCH (09:08)
[2018-07-30] MEDS: APIXABAN 5 MG TABLET. PO SCH (09:08)
--- NOTE | 2018-07-30 12:23 | PDOC3 ---
Discharge Summary Brief Hospital Course Allergies Allergies Coded Allergies Type Severity Reaction Last Updated Verified Penicillins Allergy Intermediate Rash 12/11/14 Yes albuterol Allergy Intermediate Swelling 12/11/14 Yes ampicillin Allergy Intermediate Itching 12/11/14 Yes cetirizine Allergy Intermediate 12/11/14 Yes codeine Allergy Intermediate 12/11/14 Yes diphenhydramine HCl Allergy Intermediate Unknown 12/11/14 Yes erythromycin base Allergy Intermediate Rash 12/11/14 Yes rivaroxaban Allergy Intermediate 07/04/18 Yes tetracycline Allergy Intermediate Rash 12/11/14 Yes I S O L A T I O N *CONTACT* Allergy Unknown 06/15/18 Yes acetaminophen Adverse Reaction Intermediate Nausea and Vomiting 12/10/14 Yes azithromycin Adverse Reaction Intermediate Diarrhea 12/10/14 Yes Vital Signs Vital Signs Date Time Temp Pulse Resp B/P (MAP) Pulse Ox O2 Delivery O2 Flow Rate FiO2 07/30/18 09:08 73 105/63 07/30/18 04:18 98.1 18 95 07/29/18 20:10 Room Air Lab Results Laboratory Tests Test 07/29/18 21:30 07/30/18 06:35 Stool Occult Blood Positive (NEG) White Blood Count 6.3 x10^3/uL (4.0-11.0) Red Blood Count 3.95 x10^6/uL (3.50-5.40) Hemoglobin 11.8 g/dL (12.0-15.5) Hematocrit 35.8 % (36.0-47.0) Mean Corpuscular Volume 91 fL (79-100) Mean Corpuscular Hemoglobin 30 pg (25-35) Mean Corpuscular Hemoglobin Concent 33 g/dL (31-37) Red Cell Distribution Width 13.7 % (11.5-14.5) Platelet Count 321 x10^3/uL (140-400) Neutrophils (%) (Auto) 67 % (31-73) Lymphocytes (%) (Auto) 17 % (24-48) Monocytes (%) (Auto) 11 % (0-9) Eosinophils (%) (Auto) 5 % (0-3) Basophils (%) (Auto) 1 % (0-3) Neutrophils # (Auto) 4.2 x10^3uL (1.8-7.7) Lymphocytes # (Auto) 1.0 x10^3/uL (1.0-4.8) Monocytes # (Auto) 0.7 x10^3/uL (0.0-1.1) Eosinophils # (Auto) 0.3 x10^3/uL (0.0-0.7) Basophils # (Auto) 0.1 x10^3/uL (0.0-0.2) Brief Hospital Course Ms. Macdonald is a 83 old [sex] who presented with [ ] Discharge Information Dischare Medications Current Medications Colestipol HCl (Colestid) 2 gm BIDAFTMEAL PO Last administered on 07/30/18 09: 07; Start 07/21/18 at 18:00 Amlodipine Besylate (Norvasc) 10 mg DAILY PO Last administered on 07/30/18 09: 08; Start 07/22/18 at 09:00 Apixaban (Eliquis) 5 mg BID PO Last administered on 07/30/18 09:08; Start 07/21 at 21:00 Aspirin (Children'S Aspirin) 81 mg DAILYWBKFT PO Last administered on 09:07; Start 07/22/18 at 08:00 Carvedilol (Coreg) 12.5 mg BIDWMEALS PO Last administered on 07/30/18 09:08; Start 07/21/18 at 17:00 Magnesium Oxide (Magnesium Oxide) 400 mg TID PO Last administered on 07/30/18 09:08; Start 07/21/18 at 21:00 Oxycodone HCl (Roxicodone) 5 mg PRN Q6HRS PRN PO PAIN Last administered on at 18:42; Start 07/21/18 at 16:30 Nystatin (Nystop) 1 yolis BID TP Last administered on 07/30/18 09:07; Start 07/21 at 21:00 Active Scripts Active Aspirin 81 Mg Tab.chew 81 Mg PO DAILY 30 Days Reported Nystatin 15 Gm Powder 1 Yolis TP BID Oxycodone Hcl 5 Mg Capsule 1 Cap PO PRN Q6HRS PRN Magnesium Oxide 400 Mg Tablet 400 Mg PO TID Colestid (Colestipol Hcl) 1 Gm Tablet 2 Gm PO BIDAFTMEAL Amlodipine Besylate 2.5 Mg Tablet 10 Mg PO DAILY Eliquis (Apixaban) 5 Mg Tablet 5 Mg PO BID Carvedilol 25 Mg Tablet 12.5 Mg PO BIDWRIDGE ROLDAN DO Jul 30, 2018 12:23
== END 2018-07-30 13:30 | disposition home health service (06) | DRG 69 ==
LOC: LND 15:10
PROVIDERS: ADMIT Internal Medicine; ATTEND Internal Medicine
DX: G45.9 Transient cerebral ischemic attack, unspecified (principal); I69.354 Hemiplegia and hemiparesis following cerebral infarction affecting left non-dominant side; R47.01 Aphasia; E78.5 Hyperlipidemia, unspecified; I10 Essential (primary) hypertension; I48.2 Chronic atrial fibrillation; M15.9 Polyosteoarthritis, unspecified; Z90.49 Acquired absence of other specified parts of digestive tract; Z90.710 Acquired absence of both cervix and uterus; Z98.42 Cataract extraction status, left eye; Z98.41 Cataract extraction status, right eye; Z82.3 Family history of stroke; Z82.49 Family history of ischemic heart disease and other diseases of the circulatory system; Z83.3 Family history of diabetes mellitus; Z82.5 Family history of asthma and other chronic lower respiratory diseases; Z81.8 Family history of other mental and behavioral disorders; Z88.1 Allergy status to other antibiotic agents; Z88.5 Allergy status to narcotic agent; Z88.0 Allergy status to penicillin; Z88.8 Allergy status to other drugs, medicaments and biological substances; Z79.899 Other long term (current) drug therapy
CPT/HCPCS: 36415; 82274; 82947; 85025; 97110; 97112; 97530; 97535

== ENCOUNTER 2018-08-03 18:19 | Emergency (ER) | payer MEDICARE, OTHER ==
[~2018-08-03] VITALS: Ht 152.4 cm; Wt 65.3 kg
[~2018-08-03 18:19] MED LIST changes: +NYST15PO9 TP
[2018-08-03] MEDS ORDERED: IOHEXOL 240 MG/ML 50ML VIAL. ONE (18:32)
[2018-08-03 18:50] LABS: HEMATOCRIT 41.5 % (36.0-47.0); HEMOGLOBIN 13.5 g/dL (12.0-15.5); RED BLOOD COUNT 4.53 x10^6/uL (3.50-5.40); RED CELL DISTRIBUTION WIDTH 14.2 % (11.5-14.5); WHITE BLOOD COUNT 8.4 x10^3/uL (4.0-11.0)
[2018-08-03 18:58] LABS: CALCIUM 9.3 mg/dL (8.5-10.1); GFR 8.2
--- NOTE | 2018-08-03 19:10 | EKG ---
[address] [address] Test Date: 2018-08-03 Test Time: 19:05:19 Pat Name: WARREN HDEZ Department: Room: Gender: F Project Safety Manager: : [id number] Requested By: OSBALDO VASQUEZ Order Number: [id number] Reading MD: Measurements Intervals [place] Rate: 71 P: RI: QRS: 49 QRSD: 82 T: 73 QT: 378 QTc: 411 Interpretive Statements IRREGULAR RHYTHM, NO P-WAVE FOUND R-S TRANSITION ZONE IN V LEADS DISPLACED TO THE LEFT LOW LIMB LEAD VOLTAGE NO SPECIFIC ECG ABNORMALITIES RI6.01 Unconfirmed report Compared to ECG 07/18/2018 12:00:35 No significant changes
--- NOTE | 2018-08-03 19:19 | RAD ---
CT scan of the head without contrast 08/03/2018 Clinical History: Mental status changes. Weakness. Technique: Unenhanced, contiguous, 5 mm axial sections were obtained through the head. One or more of the following individualized dose reduction techniques were utilized for this study: 1. Automated exposure control. 2. Adjustment of the mA and/or kV according to patient size. 3. Use of iterative reconstruction technique. Findings: Comparison study is dated 07/16/2018. There is generalized parenchymal atrophy. Areas of decreased attenuation are seen within the periventricular and subcortical white matter of both cerebral hemispheres consistent with areas of small vessel ischemic disease. Areas of laminar necrosis are seen involving left parietal occipital lobe and the right frontal parietal lobe. No acute parenchymal abnormality is seen. No extra-axial fluid collection is noted. No skull fracture is seen. IMPRESSION: No acute intracranial abnormality is seen. These findings were discussed with Dr. Whitehead of the emergency department. Electronically signed by: Christiano Santoyo MD (08/03/2018 7:15 PM) [facility]
[2018-08-03] MEDS ORDERED: IV NORMAL SALINE 50ML 50 ML ONE (20:16)
[2018-08-03] MEDS ORDERED: cefTRIAXone SODIUM 1 GM VIAL IV ONE (20:16)
[2018-08-03] MEDS: CALCIUM GLUCONATE 1,000 MG/10 ML VIAL IV ONE (20:30)
[2018-08-03] MEDS ORDERED: CALCIUM GLUCONATE 1,000 MG/10 ML VIAL IV ONE (20:30)
[2018-08-03] MEDS ORDERED: ONDANSETRON PF 4 MG/2 ML VIAL. ONE (20:41)
[2018-08-03] MEDS: IV NORMAL SALINE 1,000ML 1,000 ML IV ONE (20:45)
[2018-08-03 21:00] VITALS: BP 123/52
[2018-08-03] MEDS: SODIUM BICARBONATE IVF 150 MEQ in IV STERILE WATER 1,000 ML IV ONE (21:00)
[2018-08-03] MEDS ORDERED: ONDANSETRON PF 4 MG/2 ML VIAL. IV ONE (21:30)
--- NOTE | 2018-08-03 22:37 | RAD ---
AP portable chest radiograph 08/03/2018 Clinical History: Weakness and cough. An AP erect portable digital radiograph of the chest was obtained. Comparison study is dated 07/01/2018. The cardiac silhouette is mildly enlarged. The thoracic aorta is tortuous. Atherosclerotic calcification of the thoracic aorta is seen. Mild elevation of the right hemidiaphragm is again noted. No acute pulmonary infiltrate is seen. No pleural effusion or pneumothorax is noted. The osseous structures are unchanged. Impression: No acute abnormality is seen. Electronically signed by: Christiano Santoyo MD (08/03/2018 10:33 PM) [facility]
--- NOTE | 2018-08-04 00:46 | ED.ADGEN ---
Past History Past Medical History: A-Fib, Anxiety, CVA, Heart Disease, Stroke, Uterine Fibroids Past Surgical History: Appendectomy, Cholecystectomy, Hysterectomy, Other Smoking: Non-smoker Alcohol Use: None Drug Use: None Adult General Chief Complaint Chief Complaint Slurred speech HPI HPI Patient is a 83-year-old rehabilitation patient with history of recent CVA, A. fib who presents from rehabilitation facility with crying speech and altered mental status. Patient has chronic left-sided weakness from recent stroke. No acute reports of new lateralizing motor weakness. History is limited by patient' s presentation. She is alert oriented to person only on exam. Additional history obtained from patient's son and medical record[] Review of Systems Review of Systems Review symptoms as per history of present illness. [] All other systems were reviewed and found to be within normal limits, except as documented in this note. Current Medications Current Medications Current Medications Medications (Trade) Dose Ordered Sig/Cici Start Time Stop Time Status Last Admin Dose Admin Calcium Gluconate 1,000 mg 1X ONCE 08/03/18 20:30 08/03/18 20:31 DC Ceftriaxone Sodium 1 gm/ Sodium Chloride 50 ml @ 100 mls/hr 1X ONCE 08/03/18 20:15 08/03/18 20:44 DC 08/03/18 20:45 100 MLS/HR Ceftriaxone Sodium (Rocephin) 1 gm STK-MED ONCE 08/03/18 20:16 08/03/18 20:17 DC Iohexol (Omnipaque 240 Mg/ml) 50 ml STK-MED ONCE 08/03/18 18:32 08/03/18 18:33 DC Ondansetron HCl (Zofran) 4 mg 1X ONCE 08/03/18 21:30 08/03/18 21:31 DC Sodium Bicarbonate 150 meq/Sterile Water 1,150 ml @ 125 mls/hr 1X ONCE 08/03/18 20:30 08/04/18 05:41 08/03/18 21:00 125 MLS/HR Sodium Chloride 50 ml @ As Directed STK-MED ONCE 08/03/18 20:16 08/03/18 20:17 DC Allergies Allergies Allergies Coded Allergies Type Severity Reaction Last Updated Verified Penicillins Allergy Intermediate Rash 12/11/14 Yes albuterol Allergy Intermediate Swelling 12/11/14 Yes ampicillin Allergy Intermediate Itching 12/11/14 Yes cetirizine Allergy Intermediate 12/11/14 Yes codeine Allergy Intermediate 12/11/14 Yes diphenhydramine HCl Allergy Intermediate Unknown 12/11/14 Yes erythromycin base Allergy Intermediate Rash 12/11/14 Yes rivaroxaban Allergy Intermediate 07/04/18 Yes tetracycline Allergy Intermediate Rash 12/11/14 Yes I S O L A T I O N *CONTACT* Allergy Unknown 06/15/18 Yes acetaminophen Adverse Reaction Intermediate Nausea and Vomiting 12/10/14 Yes azithromycin Adverse Reaction Intermediate Diarrhea 12/10/14 Yes Physical Exam Physical Exam Constitutional: Well developed, well nourished, no acute distress, non-toxic appearance. [] HENT: Normocephalic, atraumatic, bilateral external ears normal, nose normal. [] Eyes: GURINDER. [] Neck: Normal range of motion, no tenderness. [] Cardiovascular:Heart rate regular rhythm, no murmur [] Lungs & Thorax: Bilateral breath sounds clear to auscultation [] Abdomen: Bowel sounds normal, soft, no tenderness. [] Skin: Warm, dry. [] Back: No tenderness. [] Extremities: No tenderness. [] Neurologic: Alert and oriented to person, dysarthria, cranial nerves otherwise intact, left upper/lower paresis. [] Psychologic: Affect normal, judgement normal, mood normal. [] Current Patient Data Vital Signs Vital Signs Date Time Temp Pulse Resp B/P (MAP) Pulse Ox O2 Delivery O2 Flow Rate FiO2 08/03/18 20:30 112 14 109/45 (66) 94 Room Air 08/03/18 18:37 98.3 Lab Results Laboratory Tests Test 08/03/18 18:37 White Blood Count 8.4 x10^3/uL (4.0-11.0) Red Blood Count 4.53 x10^6/uL (3.50-5.40) Hemoglobin 13.5 g/dL (12.0-15.5) Hematocrit 41.5 % (36.0-47.0) Mean Corpuscular Volume 92 fL (79-100) Mean Corpuscular Hemoglobin 30 pg (25-35) Mean Corpuscular Hemoglobin Concent 33 g/dL (31-37) Red Cell Distribution Width 14.2 % (11.5-14.5) Platelet Count 387 x10^3/uL (140-400) Sodium Level 133 mmol/L (136-145) L Potassium Level 6.0 mmol/L (3.5-5.1) H Chloride Level 98 mmol/L (98-107) Carbon Dioxide Level 30 mmol/L (21-32) Anion Gap 5 (6-14) L Blood Urea Nitrogen 57 mg/dL (7-20) H Creatinine 5.0 mg/dL (0.6-1.0) H Estimated GFR (Cockcroft-Gault) 8.2 Glucose Level 127 mg/dL (70-99) H Calcium Level 9.3 mg/dL (8.5-10.1) EKG EKG [EKG reviewed: Negative A. fib with variable bradycardia with intermittent paroxysms of rapid ventricular response] Radiology/Procedures Radiology/Procedures [CT head: No acute intercranial infarct per radiology] Course & Med Decision Making Course & Med Decision Making Pertinent Labs and Imaging studies reviewed. (See chart for details) [Patient with acute kidney injury with hyperkalemia. Calcium gluconate given, bicarbonate drip initiated. Blood pressure improved.. Current Rocephin given for possible urinary tract infection. Dr. 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 OSBALDO VASQUEZ DO Aug 04, 2018 00:46
== END 2018-08-03 21:20 | disposition short-term general hospital (02) ==
LOC: ER 18:19
DX: N17.9 Acute kidney failure, unspecified (principal); E87.5 Hyperkalemia; I48.91 Unspecified atrial fibrillation; R47.1 Dysarthria and anarthria; F41.9 Anxiety disorder, unspecified; G81.90 Hemiplegia, unspecified affecting unspecified side; Z86.73 Personal history of transient ischemic attack (TIA), and cerebral infarction without residual deficits; Z88.0 Allergy status to penicillin; Z88.1 Allergy status to other antibiotic agents; Z88.6 Allergy status to analgesic agent; Z91.041 Radiographic dye allergy status
CPT/HCPCS: 36415; 70450; 71045; 80048; 85027; 93005; 96365; 96368; 96375; 99285; J0610; J0696; J7030